=== PATIENT | male | born 1965 | race Caucasian/White ===

== ENCOUNTER → 2019-06-09 | Outpatient (CLI) | payer OTHER ==
--- NOTE | 2019-06-09 12:31 | CT ---
EXAMINATION TYPE: CT sinus wo con DATE OF EXAM: 06/09/2019 COMPARISON: None HISTORY: Cough x [address] DLP: 639 mGycm CONTRAST: None The paranasal sinuses are examined in the axial plane at 2 mm thick sections. Reconstructed images i n the coronal plane were obtained. There is dental amalgam scatter artifact There is an air-fluid level within the left maxillary sinus. Retention cyst appears to be along the a nterior left maxillary sinus. The ethmoid air cells are clear. The sphenoid sinuses are clear. The frontal sinuses are clear. The septum is evaluated. There is septal deviation to the left. The right ostiomeatal unit is patent. There is obstruction of the left ostiomeatal unit. IMPRESSIONS: 1. Clinical correlation recommended for acute left maxillary sinusitis.
--- NOTE | 2019-06-09 12:51 | CT ---
EXAMINATION TYPE: CT chest w con DATE OF EXAM: 06/09/2019 COMPARISON: None HISTORY: Cough x [address] DLP: 680 mGycm, Automated exposure control for dose reduction was used. CONTRAST: Performed injected with 100 mL of Isovue M300. TECHNIQUE: Axial images were obtained at 5 mm thick sections. Reconstructed images are reviewed on [facility] computer in the coronal plane. FINDINGS: Portion of the thyroid visualized is normal. There is a 0.7 cm nodule within the periphery of the right upper lobe. Series 4 image 15. There is a focal area of pneumonitis appears suspicious measuring 2.0 cm right upper outer lung. Series 4 image 20. An additional irregular density is in the posterior right upper lobe measuring 2.0 cm. Series 4 i mage 23. Small density with some surrounding pneumonitis with a diameter of 1.6 cm in the left perihi lar region. Series 4 image 25. Small area of pneumonitis with a transverse dimension of 0.8 cm cyst i n the right perihilar region. Series 4 image 27. A 1.2 cm area of pneumonitis is in the right middle lobe. Series 4 image 31. Small area of density with surrounding pneumonitis measures 0.5 cm. Series 4 image 36. There is an area of increased density in the posterior left lower lung field measuring 2.2 cm in diameter. Series 4 image 40. There is a nodular density within the right middle lobe adjacent to the major fissure measuring 0.8 cm with some surrounding pneumonitis change. Series 4 image 42. Th ere is a nodule just above the right diaphragm measuring 0.9 cm. Series 4 image 44. There is a periph eral based nodular density measuring 1.5 x 1.0 cm deep posterior lateral right lung. Series 4 image 4 3. Nodular densities in the left lung base medially measuring 0.8 cm. Series 4 image 42. No enlarged mediastinal or hilar adenopathy is evident. The ascending aorta diameter at the level o f the main pulmonary artery is 2.9 cm. The main pulmonary artery diameter at the bifurcation is 2.[address] sections are obtained through the upper abdomen. There is moderate fatty infiltration of t liver. Adrenal glands appear normal. IMPRESSIONS: 1. Multiple bilateral lung nodules and areas of pneumonitis within the bilateral lung cordova discusse d above. Findings are suspicious for metastatic disease. Additional workup is recommended. PET/CT may be useful. 2. Moderate fatty infiltration of the liver
== END | disposition home or self-care (01) ==
LOC: RADCTMAIN 09:44
PROVIDERS: ATTEND Internal Medicine
DX: J18.9 Pneumonia, unspecified organism (principal); R91.8 Other nonspecific abnormal finding of lung field; R93.0 Abnormal findings on diagnostic imaging of skull and head, not elsewhere classified
CPT/HCPCS: 71260; 70486; Q9967

== ENCOUNTER → 2019-06-16 | Outpatient (CLI) | payer OTHER | END | disposition home or self-care (01) | LOC: LABWHC1 09:05 | PROVIDERS: ATTEND Internal Medicine Critical Care Medicine | DX: R91.8 Other nonspecific abnormal finding of lung field (principal) | CPT/HCPCS: 36415; 82164; 86001; 86606; 86609 ==

== ENCOUNTER → 2019-06-18 | Outpatient (CLI) | payer OTHER ==
--- NOTE | 2019-06-22 19:24 | PE ---
Nuclear medicine PET/CT HISTORY: Cough, abnormal chest CT, pulmonary nodule Patient received 10 mCi F-18 FDG intravenously in delayed scanning was performed from the skull base to the mid thighs. Localization and attenuation correction CT scan was performed. Correlation to chest and sinus CT 06/09/2019 Neck and chest: Bilateral groundglass and semisolid nodular densities of varying sizes are again note d. There is some associated hypermetabolic uptake present. Additionally right hilar adenopathy with a ssociated uptake is noted. Patient's left maxillary sinus disease again seen. No cervical or supraclavicular adenopathy. Mild up take noted along the palatine tonsils and anterior tongue may be physiologic. No pleural pericardial effusion. ABDOMEN: Liver shows low attenuation as on prior exam. Patient is post cholecystectomy. No retroperit hernandez adenopathy or suspicious hypermetabolic uptake. Uptake within the bowel in the right lower quad rant is likely physiologic. There is prostate calcification. Osseous structures unremarkable. Impression: Consider such entities as pulmonary vasculitis such as eosinophilic granulomatosis with p olyangiitis, respiratory bronchiolitis interstitial lung disease, subacute hypersensitivity pneumonit is, aspergillosis, alveolar hemorrhage, atypical infection, sarcoid and bronchioloalveolar carcinoma in the appropriate clinical setting. Consider pulmonary consult.
== END | disposition home or self-care (01) ==
LOC: RADPETMAIN 16:24
PROVIDERS: ATTEND Internal Medicine
DX: R91.8 Other nonspecific abnormal finding of lung field (principal)
CPT/HCPCS: 78815; A9552

== ENCOUNTER → 2019-06-24 | Day surgery (SDC) | payer OTHER ==
[2019-06-23 09:19] VITALS: BMI 31.1
[~2019-06-24] MED LIST: ALBUTEROL NEB (CONC) 2.5 MG/0.5 ML INHALATION ONE; ATROPINE SULFATE 0.4 MG/ML 1 ML VIAL IM ONE; DEXAMETHASONE SOD PHOSPHATE 10 MG/ML 1 ML VIAL IV ONE; GLYCOPYRROLATE 0.2 MG/ML 2 ML VIAL ONE; HYDROmorphone 0.5 MG/0.5 ML SYRINGE IVP PRN; LACTATED RINGERS 1,000 ML IV SCH; LIDOCAINE 1% INJ 10MG/ML (20 ML MDV) ONE; LIDOCAINE 2% (PF) 20 MG/ML 5 ML VIAL INHALATION ONE; LIDOCAINE VISCOUS 300 MG/15 ML CUP MUCOUS MEM ONE; MIDAZOLAM 2 MG/2 ML VIAL IV PRN; MIDAZOLAM 2 MG/2 ML VIAL ONE; NEOSTIGMINE 1 MG/ML 10 ML VIAL ONE; ONDANSETRON 4 MG/2 ML VIAL IVP ONE; PHENYLEPHRINE-0.9% NACL SYG 1 MG/10 ML SYRINGE ONE; PROPOFOL 10 MG/ML 20 ML VIAL IV ONE; ROCURONIUM BROMIDE 10 MG/ML 10 ML VIAL IV ONE; SCOPOLAMINE 1.5MG/72HR PATCH TRANSDERM ONE; SODIUM CHLORIDE 0.9% 1,000 ML IV SCH; SUCCINYLCHOLINE CHLORIDE 100 MG/5 ML SYR IV ONE; fentaNYL (PF) 50 MCG/ML 2 ML AMP ONE
[2019-06-24 13:25] VITALS: TEMP 98.3
--- NOTE | 2019-06-24 13:29 | PCN ---
PROCEDURE NOTE PROCEDURE: Navigational bronchoscopy. OPERATORS: Dr. Jean Baptiste, Dr. Gayle and Akila Ledezma. PREOPERATIVE DIAGNOSIS: Multiple inflammatory/infectious lesions bilateral lungs, rule out infection versus cancer. POSTOPERATIVE DIAGNOSIS: Multiple inflammatory/infectious lesions bilateral lungs, rule out infection versus cancer. PROCEDURE: The patient's procedure was done in operating room #6. There was informed consent and universal timeout. Dr. Au was the anesthesiologist to provide general anesthesia. After the patient was adequately sedated and being fully monitored and anesthetized and on the ventilator, the bronchoscope was inserted through the bronchoscope adapter connected to the endotracheal tube. We used A [place] [employer] electromagnetic navigational bronchoscopy device to localize the most significant lesion in the left lower lobe. Once there, we were able to do multiple transbronchial needle aspirations, also transbronchial biopsies as well as washes and brushes in this area. It was all done under computer-guided assistance. The patient tolerated procedure well. The specimens were sent to the laboratory for analysis. There was no immediate complication. The patient was stable throughout the procedure on the ventilator. The bronchoscope was then withdrawn. The patient will be recovered. I will speak to the patient's about the procedure. Again, specimens to be sent to the laboratory for analysis. Again, everything was collected in the left lower lobe including transbronchial needle aspirations/Barreto needle aspirations, transbronchial biopsies, brushes and washes, all in the left lower lobe. MMODL / IJN: [id number] /
--- NOTE | 2019-06-24 14:07 | CT ---
EXAMINATION TYPE: CT Chest ye Ni Protocol DATE OF EXAM: 06/24/2019 COMPARISON: Nuclear medicine PET/CT 06/18/2019, CT chest 06/09/2019 HISTORY: Bronchial Navigation-Pulmonary Nodules/Mass CT DLP: 654 mGycm Automated exposure control for dose reduction was used. Helical acquisition obtained for preprocedura l planning through the chest FINDINGS: Right upper lobe lesion posterior aspect seen on prior CT at shows a suggestion of minimal cavitary a ppearance, some central lucency is present. Multiple additional nodules are again seen showing somewh at more solid appearance to some of the nodules as compared to prior. No evident pleural or pericardi al effusion. No mediastinal, axillary, or hilar adenopathy. No significant interval change. IMPRESSION: MULTIPLE PULMONARY NODULES DESCRIBED, CT PERFORMED FOR PROCEDURE PLANNING
[2019-06-24 14:09] VITALS: RESP 18
--- NOTE | 2019-06-24 14:16 | XR ---
EXAMINATION TYPE: XR chest 1V portable DATE OF EXAM: 06/24/2019 HISTORY: Status post bronchoscopy COMPARISON: None. TECHNIQUE: Single view of the chest is submitted. FINDINGS: Demonstrated are scattered senescent parenchymal change. No evidence for pneumothorax. Left hilar prominence are noted. The heart is stable. Hilar and mediastinal structures are within normal limits. Degenerative changes are seen of the dorsal spine. IMPRESSION: 1. No evidence for pneumothorax.
[2019-06-24 14:34] VITALS: BP 110/72; PULSE 79
[2019-06-24 17:24] LABS: Appearance,BF Hazy; Color,BF Pink
[2019-06-24 17:25] LABS: Nucleated Cells, Body Fluid 0 /uL; RBC, Body Fluid 14125 /uL
== END ==
LOC: ORWHC2ENDO 10:00
PROVIDERS: ATTEND Internal Medicine Critical Care Medicine
DX: J98.4 Other disorders of lung (principal); J06.9 Acute upper respiratory infection, unspecified; J18.9 Pneumonia, unspecified organism; I82.409 Acute embolism and thrombosis of unspecified deep veins of unspecified lower extremity; I26.99 Other pulmonary embolism without acute cor pulmonale; B37.0 Candidal stomatitis; K21.9 Gastro-esophageal reflux disease without esophagitis; D68.51 Activated protein C resistance; Z86.718 Personal history of other venous thrombosis and embolism; Z79.01 Long term (current) use of anticoagulants; Z79.899 Other long term (current) drug therapy; Z80.0 Family history of malignant neoplasm of digestive organs; Z82.49 Family history of ischemic heart disease and other diseases of the circulatory system; Z90.49 Acquired absence of other specified parts of digestive tract
CPT/HCPCS: 31628; 31629; 94640; 87798 ×3; 87496; 87498; 87529; 88104; 88108; 88305; 88173; 89050; 87252; 87502; 87634; 87070; 87205; 87116; 87102; 87206; 71045; 71250; 31623; 31624; 31627; J2250; J0461; J2710; J2405; J2001 ×2; J3010; J2370; J0330; J2704; 31625

== ENCOUNTER 2019-07-05 10:32 | Inpatient (IN) | payer OTHER ==
--- NOTE | 2019-07-05 10:17 | CT ---
EXAMINATION TYPE: CT angio chest DATE OF EXAM: 07/05/2019 COMPARISON: 06/09/2019 HISTORY: Shortness of breath CT DLP: 583 mGycm CONTRAST: CT chest with contrast and 3D reconstruction with MIP imaging is performed with IV Contrast, patient injected with 100 mL of Isovue 370. Contrast-enhanced CT of the chest was performed through the course of the pulmonary arteries with ana g and mediastinal window settings submitted. 3D reconstruction with MIP imaging was also performed. PULMONARY ARTERIES: Moderate filling of secondary and tertiary branches within bilateral lower lobes left greater than right compatible with pulmonary embolism. No evidence for saddle embolus component. Smaller filling defect within a tertiary branch of the right upper lobe. Left upper lobe branches ar e well-perfused this time. LUNGS: Pleural-based pulmonary nodule right lower lobe measures 2.2 cm. Multiple additional pulmonary nodules identified some of which demonstrate cavitation. Suspect metastatic disease or primary lung carcinoma with metastatic nodules. MEDIASTINUM: Thoracic aorta is of normal caliber,however, evaluation is limited given timing of the contrast bolus. If there is concern for thoracic aortic pathology consider MARICRUZ. Correlate clinicall y . The heart is not enlarged. No evidence for mediastinal mass. No mediastinal lymph nodes greater than 1cm. HILAR STRUCTURES: No evidence for mass. No hilar lymph nodes greater than 1 cm. UPPER ABDOMEN: No significant abnormality is seen. IMPRESSION: 1. Moderate bilateral pulmonary embolism as discussed above. 2. Multiple pulmonary nodules some of which are cavitary. A [place] critical message alert has been initiated for Otilio Jean Baptiste DO via the [facility] Critical Results System on 07/05/2019 10:15 AM. This message alert has been sent to Chantelle Hood via the preferences provided by the clinician for the receipt of Radiology Critical Findings. [email or web address] ID [id number].
[2019-07-05] MEDS ORDERED: HEPARIN SODIUM,PORCINE 10,000 UNIT/ML 1 ML VIAL IV ONE (10:45)
[2019-07-05] MEDS ORDERED: HEPARIN SODIUM,PORCINE 5,000 UNIT/ML 1 ML VIAL IV PRN (10:45)
--- NOTE | 2019-07-05 10:57 | ED ---
General Adult HPI - General Chief complaint: Shortness of Breath Stated complaint: positive PE Time Seen by Provider: 07/05/19 10:45 Source: patient Mode of arrival: ambulatory Limitations: no limitations - History of Present Illness Initial comments: Dictation was produced using [employer] dictation software. please excuse any grammatical, word or spelling errors. Chief Complaint: 54-year-old male who presents with abnormal outpatient CT. History of Present Illness: Patient is 54-year-old male. He has past medical history of clotting disorder. Patient has had pulmonary embolism in the past. Patient is past medical history of pulmonary nodules elsewhere. Patient had CT angiogram of the chest performed today due to recent history of cough, shortness of breath and sore throat. CT angios performed today showed pulmonary emboli. He was instructed by his physician to come directly to the emergency department. Patient has history of blood clots. He was on Coumadin however had lung biopsies performed recently. His Coumadin for approximately 5 days. Patient reports that he feels okay now. He does still have some residual shortness of breath. The ROS documented in this emergency department record has been reviewed and confirmed by me. Those systems with pertinent positive or negative responses have been documented in the HPI. All other systems are other negative and/or noncontributory. PHYSICAL EXAM: General Impression: Alert and oriented x3, not in acute distress HEENT: Normocephalic atraumatic, extra-ocular movements intact, pupils equal and reactive to light bilaterally, mucous membranes moist. Cardiovascular: Heart regular rate and rhythm, S1&S2 audible, no murmurs, rubs or gallops Chest: Lungs clear to auscultation bilaterally, no rhonchi, no wheeze, no rales Abdomen: Bowel sounds present, abdomen soft, non-tender, non-distended, no organomegaly Musculoskeletal: Pulses present and equal in all extremities, no peripheral edema Motor: no focal deficits noted Neurological: CN II-XII grossly intact, no focal motor or sensory deficits noted Skin: Intact with no visualized rashes Psych: Normal affect and mood ED course: 54-year-old male presents with PE seen on outpatient CT Chest. Radiology interpretation is reviewed showing moderate bilateral pulmonary embolism. All signs upon arrival shows heart rate of 90, respiratory signs within acceptable limits. Lab evaluation obtained. CBC unremarkable. Coag panel shows INR 2.4, metabolic panel is unremarkable. Troponin is negative. Patient's blood pressure has been trended without any instability. Patient's clinical presentation consistent with stable pulmonary emboli. Patient will be admitted to observation with consultation to pulmonology. Discussed patient case Dr. Nikko guaman is willing to accept patients care. Patient was started on heparin. CV therapeutic at this time. Discussed concern that maybe these pulmonary emboli are chronic or perhaps acutely formed despite anticoagulation therapy. EKG interpretation: Ventricular rate 92, normal sinus rhythm, ID interval 120, care is 86, QTC 422. No ID prolongation, no QTC prolongation, no ST or T-wave changes noted. Overall, this EKG is unremarkable - Related Data Home Medications Medication Instructions Recorded Confirmed Folic Acid 1 mg PO DAILY 06/23/19 07/05/19 Omeprazole [PriLOSEC] 20 mg PO DAILY 06/23/19 07/05/19 Fluconazole [Diflucan] 100 mg PO DAILY 07/05/19 07/05/19 Warfarin [Coumadin] 7.5 mg PO QAM 07/05/19 07/05/19 Allergies Allergy/AdvReac Type Severity Reaction Status Date / Time No Known Allergies Allergy Verified 07/05/19 11:33 Review of Systems ROS Statement: Those systems with pertinent positive or pertinent negative responses have been documented in the HPI. ROS Other: All systems not noted in ROS Statement are negative. Past Medical History Past Medical History: Deep Vein Thrombosis (DVT) Additional Past Medical History / Comment(s): DVT 7-8YRS AGO question will pulmonary emboli 7 years ago History of Any Multi-Drug Resistant Organisms: None Reported Additional Past Surgical History / Comment(s): 3 ARTHROSCOPIES TIM KNEES. Past Anesthesia/Blood Transfusion Reactions: No Reported Reaction Past Psychological History: No Psychological Hx Reported Smoking Status: Never smoker Past Alcohol Use History: Occasional Past Drug Use History: None Reported - Past Family History Father Family Medical History: Cancer Additional Family Medical History / Comment(s): COLON CANCER Mother Additional Family Medical History / Comment(s): HEART STENTS PLACED General Exam Limitations: no limitations Course Vital Signs 07/05/19 07/05/19 07/05/19 10:39 11:24 11:30 Temperature 98.7 F Pulse Rate 90 93 Respiratory 18 18 18 Rate Blood Pressure 125/79 129/81 O2 Sat by Pulse 96 95 Oximetry 07/05/19 07/05/1907/05/19 11:41 12:00 12:30 Temperature Pulse Rate 90 89 Respiratory 18 20 24 Rate Blood Pressure 124/80 125/77 O2 Sat by Pulse 96 99 Oximetry Medical Decision Making - Lab Data Result diagrams: 07/05/19 11:13 07/05/19 11:13 Lab Results 07/05/19 07/05/19 07/05/19 Range/Units 11:13 11:13 11:13 WBC 6.7 (3.8-10.6) k/uL RBC 4.99 (4.30-5.90) m/uL Hgb 14.6 (13.0-17.5) gm/dL Hct 44.3 (39.0-53.0) % MCV 88.6 (80.0-100.0) fL MCH 29.3 (25.0-35.0) pg MCHC 33.0 (31.0-37.0) g/dL RDW 12.5 (11.5-15.5) % Plt Count 243 (150-450) k/uL Neutrophils % 67 % Lymphocytes % 20 % Monocytes % 8 % Eosinophils % 2 % Basophils % 0 % Neutrophils # 4.5 (1.3-7.7) k/uL Lymphocytes # 1.4 (1.0-4.8) k/uL Monocytes # 0.5 (0-1.0) k/uL Eosinophils # 0.1 (0-0.7) k/uL Basophils # 0.0 (0-0.2) k/uL PT 23.3 H (9.0-12.0) sec INR 2.4 H (<1.2) APTT 30.3 H (22.0-30.0) sec Sodium 138 (137-145) mmol/L Potassium 4.6 (3.5-5.1) mmol/L Chloride 107 (98-107) mmol/L Carbon Dioxide 23 (22-30) mmol/L Anion Gap 8 mmol/L BUN 10 (9-20) mg/dL Creatinine 0.87 (0.66-1.25) mg/dL Est GFR (CKD-EPI)AfAm >90 (>60 ml/min/1.73 sqM) Est GFR (CKD-EPI)NonAf >90 (>60 ml/min/1.73 sqM) Glucose 142 H (74-99) mg/dL Calcium 8.7 (8.4-10.2) mg/dL Troponin I (0.000-0.034) ng/mL 07/05/19 Range/Units 11:13 WBC (3.8-10.6) k/uL RBC (4.30-5.90) m/uL Hgb (13.0-17.5) gm/dL Hct (39.0-53.0) % MCV (80.0-100.0) fL MCH (25.0-35.0) pg MCHC (31.0-37.0) g/dL RDW (11.5-15.5) % Plt Count (150-450) k/uL Neutrophils % % Lymphocytes % % Monocytes % % Eosinophils % % Basophils % % Neutrophils # (1.3-7.7) k/uL Lymphocytes # (1.0-4.8) k/uL Monocytes # (0-1.0) k/uL Eosinophils # (0-0.7) k/uL Basophils # (0-0.2) k/uL PT (9.0-12.0) sec INR (<1.2) APTT (22.0-30.0) sec Sodium (137-145) mmol/L Potassium (3.5-5.1) mmol/L Chloride (98-107) mmol/L Carbon Dioxide (22-30) mmol/L Anion Gap mmol/L BUN (9-20) mg/dL Creatinine (0.66-1.25) mg/dL Est GFR (CKD-EPI)AfAm (>60 ml/min/1.73 sqM) Est GFR (CKD-EPI)NonAf (>60 ml/min/1.73 sqM) Glucose (74-99) mg/dL Calcium (8.4-10.2) mg/dL Troponin I <0.012 (0.000-0.034) ng/mL Critical Care Time Critical Care Time: Yes (31) Disposition Clinical Impression: Pulmonary emboli Disposition: ADMITTED IP TO THIS [facility] Condition: Fair Referrals: Kev Honeycutt MD [Primary Care Provider] - 1-2 days Decision Time: 13:02
[2019-07-05] MEDS: HEPARIN SOD,PORK IN 0.45% NACL 25,000 UNIT in 0.45% NACL 1 250ML.BAG IV SCH (11:22)
[2019-07-05 11:29] LABS: Basophils % (A) 0 %; Eosinophils # (A) 0.1 k/uL (0-0.7); Eosinophils % (A) 2 %; HCT 44.3 % (39.0-53.0); HGB 14.6 gm/dL (13.0-17.5); Lymphocytes # (A) 1.4 k/uL (1.0-4.8); Lymphocytes % (A) 20 %; MCH 29.3 pg (25.0-35.0); MCV 88.6 fL (80.0-100.0); Mean Platelet Volume 7.3; Monocytes # (A) 0.5 k/uL (0-1.0); Monocytes % (A) 8 %; Neutrophils # (A) 4.5 k/uL (1.3-7.7); Neutrophils % (A) 67 %; Platelet Count 243 k/uL (150-450); RBC 4.99 m/uL (4.30-5.90); RDW 12.5 % (11.5-15.5); WBC 6.7 k/uL (3.8-10.6)
[2019-07-05 11:38] LABS: INR 2.4 (<1.2); Partial Thromboplastin Time 30.3 sec (22.0-30.0); Prothrombin Time 23.3 sec (9.0-12.0)
[2019-07-05 11:54] LABS: African American GFR (CKD) >90 (>60 ml/min/1.73 sqM); Anion Gap 8 mmol/L; Blood Urea Nitrogen 10 mg/dL (9-20); Calcium 8.7 mg/dL (8.4-10.2); Carbon Dioxide 23 mmol/L (22-30); Chloride 107 mmol/L (98-107); Glucose 142 mg/dL (74-99); Non-African American GFR(CKD) >90 (>60 ml/min/1.73 sqM); Potassium 4.6 mmol/L (3.5-5.1); Sodium 138 mmol/L (137-145)
[2019-07-05] MEDS ORDERED: ACETAMINOPHEN TAB 325 MG TAB PO PRN (13:03)
[2019-07-05] MEDS ORDERED: NALOXONE 0.4 MG/ML 1 ML VIAL IV PRN (13:03)
[2019-07-05] MEDS ORDERED: SODIUM CHLORIDE 0.9% 1,000 ML IV SCH (13:15)
--- NOTE | 2019-07-05 16:22 | P.CNPUL ---
History of Present Illness Consult date: 07/05/19 Requesting physician: Lew Nicolas Reason for consult: dyspnea Chief complaint: dyspnea History of present illness: This a 54-year-old male who was recently seen by Dr. Jean Baptiste on an outpatient basis for symptoms of upper respiratory tract infection, cough, chest congestion, sore throat, sensation of razors in his throat, his symptoms started back in mid May, patient was treated with 2 different courses of antibiotics his computed tomography scan of the sinuses revealed sinusitis and his chest x-ray showed some abnormalities which were confirmed by computed tomography scan of the chest. Patient had multiple pulmonary lesions appear to be nodular in appearance but also had a groundglass appearance to them as well. patient had a PET scan on 06/18/2019 which showed bilateral groundglass and semisolid nodular densities of varying sizes, and there was some associated hypermetabolic uptake present, additionally right hilar adenopathy with associated uptake was noted. 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 Patient recently had a navigational bronchoscopy by Dr. Jean Baptiste and his Coumadin was placed on hold for 5 days. Transbronchial biopsy of the left lower lobe lung nodule was nondiagnostic of a mass lesion. Barreto needle aspirate biopsy of the left lower lobe was nondiagnostic. bronchial wash cultures showed no growth, acid-fast bacilli smear was negative, TB culture is still pending, fungal culture so far is negative. after patient's initial bronchoscopy he was resumed on his Coumadin dose the same night. Patient has been having ongoing issues with sore throat, oral thrush and she was started on oral Diflucan by his PCP. He noticed increased shortness of breath last , but no complaints of chest pain, no hemoptysis. any activity makes him short of breath. Denies any cough or phlegm production, no fever, does feel like he has some chills. he was seen by Dr. Jean Baptiste in the office today, and was sent in to the emergency department for evaluation, CTA chest showed moderate bilateral pulmonary embolism left greater than right, and secondary and tertiary branches within bilateral lower lobes, with small filling defects within the tertiary branch of the right upper lobe. multiple pulmonary nodules which some of them are cavitary as previously noted on previous CAT scans of the chest. hemodynamically stable, blood pressure is stable, patient is on room air, with a pulse ox 97%, he was started on heparin infusion, and this consultation was requested Review of Systems All systems: negative Constitutional: Denies chills, Denies fever Eyes: denies blurred vision, denies pain Ears, nose, mouth and throat: Reports sore throat, Denies headache Cardiovascular: Reports decreased exercise tolerance, Reports dyspnea on exertion, Denies chest pain, Denies shortness of breath Respiratory: Reports dyspnea, Denies cough Gastrointestinal: Denies abdominal pain, Denies diarrhea, Denies nausea, Denies vomiting Musculoskeletal: Denies myalgias Integumentary: Denies pruritus, Denies rash Neurological: Denies numbness, Denies weakness Psychiatric: Denies anxiety, Denies depression Endocrine: Denies fatigue, Denies weight change Past Medical History Past Medical History: Deep Vein Thrombosis (DVT) Additional Past Medical History / Comment(s): DVT 7-8YRS AGO question will pulmonary emboli 7 years ago History of Any Multi-Drug Resistant Organisms: None Reported Additional Past Surgical History / Comment(s): 3 ARTHROSCOPIES TIM KNEES. Past Anesthesia/Blood Transfusion Reactions: No Reported Reaction Past Psychological History: No Psychological Hx Reported Smoking Status: Never smoker Past Alcohol Use History: Occasional Past Drug Use History: None Reported - Past Family History Father Family Medical History: Cancer Additional Family Medical History / Comment(s): COLON CANCER Mother Additional Family Medical History / Comment(s): HEART STENTS PLACED Medications and Allergies Home Medications Medication Instructions Recorded Confirmed Type Folic Acid 1 mg PO DAILY 06/23/19 07/05/19 History Omeprazole [PriLOSEC] 20 mg PO DAILY 06/23/19 07/05/19 History Fluconazole [Diflucan] 100 mg PO DAILY 07/05/19 07/05/19 History Warfarin [Coumadin] 7.5 mg PO QAM 07/05/19 07/05/19 History Allergies Allergy/AdvReac Type Severity Reaction Status Date / Time No Known Allergies Allergy Verified 07/05/19 11:33 Physical Exam Vitals: Vital Signs Temp Pulse Resp BP Pulse Ox 07/05/19 14:30 79 20 113/61 96 07/05/19 14:00 77 21 118/74 97 07/05/19 13:00 89 18 131/83 95 07/05/19 12:30 89 24 125/77 99 07/05/19 12:00 90 20 124/80 07/05/19 11:41 18 96 07/05/19 11:30 93 18 129/81 95 07/05/19 11:24 18 07/05/19 10:39 98.7 F 90 18 125/79 96 Intake and Output 07/05/19 07/05/19 07/05/19 06:59 14:59 22:59 Other: Weight 104.326 kg GENERAL EXAM: Alert, very pleasant, 54-year-old white male, on room air, with a pulse ox of 94-97%, comfortable in no apparent distress. HEAD: Normocephalic/atraumatic. EYES: Normal reaction of pupils, equal size. Conjunctiva pink, sclera white. NOSE: Clear with pink turbinates. MOUTH: yellowish whitish coating on patient's tongue. No other lesions noted on upper palate, posterior oropharynx, over the buccal mucosa THROAT: No erythema or exudates. NECK: No masses, no JVD, no thyroid enlargement, no adenopathy. CHEST: No chest wall deformity. Symmetrical expansion. LUNGS: Equal air entry with no crackles, wheeze, rhonchi or dullness. CVS: Regular rate and rhythm, normal S1 and S2, no gallops, no murmurs, no rubs ABDOMEN: Soft, nontender. No hepatosplenomegaly, normal bowel sounds, no guarding or rigidity. EXTREMITIES: No clubbing, no edema, no cyanosis, 2+ pulses and upper and lower extremities. MUSCULOSKELETAL: Muscle strength and tone normal. SPINE: No scoliosis or deformity SKIN: No rashes CENTRAL NERVOUS SYSTEM: Alert and oriented -3. No focal deficits, tone is normal in all 4 extremities. PSYCHIATRIC: Alert and oriented -3. Appropriate affect. Intact judgment and insight. Results - Laboratory Findings CBC and BMP: 07/05/19 11:13 07/05/19 11:13 PT/INR, D-dimer PT 23.3 sec (9.0-12.0) H 07/05/19 11:13 INR 2.4 (<1.2) H 07/05/19 11:13 Abnormal lab findings: Abnormal Labs 07/05/19 07/05/19 11:13 11:13 PT 23.3 H INR 2.4 H APTT 30.3 H Glucose 142 H - Diagnostic Findings CT scan - chest: report reviewed, image reviewed Assessment and Plan Plan: assessment: #1. Acute bilateral pulmonary emboli, moderate burden, left greater than right, with no evidence of hemodynamic instability, 2-D echocardiogram is pending. #2. Factor V Leiden deficiency #3. Previous history of pulmonary embolus and DVT on chronic Coumadin, which was recently placed on hold for 5 days for navigational bronchoscopy #4. Multiple nodular pulmonary lesions, of unclear etiology, recent bronchoscopy with transbronchial biopsies were nondiagnostic, AFB smear negative, bronch lavage cultures negative, fungal cultures pending #5. Oral candidiasis #6. nonsmoker Plan: Continue heparin infusion, INR was therapeutic however patient states he noticed increased shortness of breath since last , and his Coumadin was recently placed on hold for several days for bronchoscopy with biopsies. We will ask hematology to evaluate the patient in regards to possible failure of Coumadin. we will ask infectious disease to evaluate the patient's for disability of infectious etiology related to presence of pulmonary nodules, in the presence of oral candidiasis in an otherwise healthy patient, he did have recent travel to [place]. Hemodynamic patient is stable, he is maintaining stable oxygenation on room air, echocardiogram is pending, we will resume his home medications. His transbronchialbiopsies were nondiagnostic, so far his bronchial lavage cultures are negative. Will await further input from hematology and infectious disease. I performed a history & physical examination of the patient and discussed their management with my nurse practitioner, Akila Ledezma. I reviewed the nurse pra ctitioner's note and agree with the documented findings and plan of care. Lung sounds are positive for decreased breath sounds at the bases. The findings and the impression was discussed with the patient. I attest to the documentation by the nurse practitioner. Time with Patient: Greater than 30
--- NOTE | 2019-07-05 16:32 | P.HPIM ---
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 Apparently the patient has been having URI type symptoms of runny nose sore throat intermittently productive cough over the last 3-4 weeks, the patient has also completed 2 courses of antibiotics including a course of Augmentin and is also had systemic steroids. CT of the sinuses showed acute maxillary sinusitis 06/09. CT of the chest 06/09 with multiple bilateral lung nodules areas of pneumonitis within the bilateral lung cordova and his suggestions for metastatic disease subsequent PET/CTthat showed bilateral groundglass appearances and semisolid nodular densities varying in size. the patient reported having bronchoscopy 06/24 with BAL and biopsy of nodule that was reportedly negative. the patient reports being instructed to hold his anticoagulation with Coumadin prior to the procedure for which she held for 7 days and which she resumed post procedure. The patient reported no improvement of his breathing and was sent for a CT of his chest today which showed bilateral pulmonary emboli and a multiple pulmonary nodules some of which are cavitary Past Medical History Past Medical History: Deep Vein Thrombosis (DVT) Additional Past Medical History / Comment(s): DVT 7-8YRS AGO question will pulmonary emboli 7 years ago History of Any Multi-Drug Resistant Organisms: None Reported Additional Past Surgical History / Comment(s): 3 ARTHROSCOPIES TIM KNEES. Past Anesthesia/Blood Transfusion Reactions: No Reported Reaction Past Psychological History: No Psychological Hx Reported Smoking Status: Never smoker Past Alcohol Use History: Occasional Past Drug Use History: None Reported - Past Family History Father Family Medical History: Cancer Additional Family Medical History / Comment(s): COLON CANCER Mother Additional Family Medical History / Comment(s): HEART STENTS PLACED Medications and Allergies Home Medications Medication Instructions Recorded Confirmed Type Folic Acid 1 mg PO DAILY 06/23/19 07/05/19 History Omeprazole [PriLOSEC] 20 mg PO DAILY 06/23/19 07/05/19 History Fluconazole [Diflucan] 100 mg PO DAILY 07/05/19 07/05/19 History Warfarin [Coumadin] 7.5 mg PO QAM 07/05/19 07/05/19 History Allergies Allergy/AdvReac Type Severity Reaction Status Date / Time No Known Allergies Allergy Verified 07/05/19 11:33 Physical Exam Vitals: Vital Signs Temp Pulse Resp BP Pulse Ox 07/05/19 16:00 83 21 123/74 94 L 07/05/19 15:30 75 22 103/71 95 07/05/19 15:00 84 20 113/61 96 07/05/19 14:30 79 20 113/61 96 07/05/19 14:00 77 21 118/74 97 07/05/19 13:00 89 18 131/83 95 07/05/19 12:30 89 24 125/77 99 07/05/19 12:00 90 20 124/80 07/05/19 11:41 18 96 07/05/19 11:30 93 18 129/81 95 07/05/19 11:24 18 07/05/19 10:39 98.7 F 90 18 125/79 96 Intake and Output 07/05/19 07/05/19 07/05/19 06:59 14:59 22:59 Other: Weight 104.326 kg Constitutional: No acute distress, conversant, pleasant Eyes: Anicteric sclerae, moist conjunctiva, no lid-lag, PERRLA ENMT: NC/AT,Oropharynx clear, no erythema, exudates Neck:Supple, FROM, no masses, or JVD, No carotid bruits; No thyromegaly Lungs: Clear to auscultation, Clear to percussion, Normal respiratory effort, no accessory muscle use Cardiovascular: Heart regular in rate and rhythm, No murmurs, gallops, or rubs no peripheral edema Abdominal: Soft Nontender, nom distended, no guarding, no rebound or rigidity, Normoactive bowel sounds No hepatomegaly, No splenomegaly, No palpable mass No abdominal wall hernia noted Skin: Normal temperature, tone, texture, turgor, No induration No subcutaneous nodules, No rash, lesions, No ulcers Extremities:No digital cyanosis No clubbing, Pedal pulses intact and symmetrical Radial pulses intact and symmetrical Normal gait and station, No calf tenderness Psychiatric: Alert and oriented to person, place and time, Appropriate affect Intact judgement Neuro: Muscles Strength 5/5 in all 4 extremities, Sensation to light touch grossly present throughout, Cranial nerves II-XII grossly intact. No focal sensory deficits Results CBC & Chem 7: 07/05/19 11:13 07/05/19 11:13 Labs: Abnormal Lab Results - Last 24 Hours (Table) 07/05/19 07/05/19 Range/Units 11:13 11:13 PT 23.3 H (9.0-12.0) sec INR 2.4 H (<1.2) APTT 30.3 H (22.0-30.0) sec Glucose 142 H (74-99) mg/dL Assessment and Plan Assessment: acute bilateral PE Factor V Leyden deficiency History of thromboembolic disease on Coumadin Multiple pulmonary nodules oral candidiasis Plan: the patient is admitted anticipated greater than 2 midnight stay with acute bilateral PE the patient with a history of thromboembolic disease factor V Leyden and antithrombin III deficiency , currently on anticoagulation with Coumadin with a therapeutic INR at 2.4 today. Patient has been worked up for his pulmonary nodules in his hand outpatient PET/CT. the patient was started on IV heparin, plans for echocardiogram and consultation to pulmonary and hematology oncology. I will continue the patient's Coumadin . we'll await recommendations from consultants. Continue to follow patient's clinical course CODE STATUS: full code Anticipated discharge: 1-[address]: Home Prophylaxis: Heparin and PPIs
[2019-07-06] MEDS: PANTOPRAZOLE 40 MG TABLET PO SCH ×2 (07:06→08:12)
[2019-07-06] MEDS ORDERED: FOLIC ACID 1 MG TAB PO SCH (09:00)
[2019-07-06] MEDS ORDERED: FLUCONAZOLE 100 MG TAB PO SCH ×2 (09:00→15:00)
[2019-07-06 10:42] LABS: INR 2.7 (<1.2)
--- NOTE | 2019-07-06 10:51 | P.PN ---
Subjective Progress Note Date: 07/06/19 Principal diagnosis: Acute pulmonary emboli This a 54-year-old male who was recently seen by Dr. Jean Baptiste on an outpatient basis for symptoms of upper respiratory tract infection, cough, chest congestion, sore throat, sensation of razors in his throat, his symptoms started back in mid May, patient was treated with 2 different courses of antibiotics his computed tomography scan of the sinuses revealed sinusitis and his chest x-ray showed some abnormalities which were confirmed by computed tomography scan of the chest. Patient had multiple pulmonary lesions appear to be nodular in appearance but also had a groundglass appearance to them as well. patient had a PET scan on 06/18/2019 which showed bilateral groundglass and semisolid nodular densities of varying sizes, and there was some associated hypermetabolic uptake present, additionally right hilar adenopathy with associated uptake was noted. 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 Patient recently had a navigational bronchoscopy by Dr. Jean Baptiste and his Coumadin was placed on hold for 5 days. Transbronchial biopsy of the left lower lobe lung nodule was nondiagnostic of a mass lesion. Barreto needle aspirate biopsy of the left lower lobe was nondiagnostic. bronchial wash cultures showed no growth, acid-fast bacilli smear was negative, TB culture is still pending, fungal culture so far is negative. after patient's initial bronchoscopy he was resumed on his Coumadin dose the same night. Patient has been having ongoing issues with sore throat, oral thrush and she was started on oral Diflucan by his PCP. He noticed increased shortness of breath last , but no complaints of chest pain, no hemoptysis. any activity makes him short of breath. Denies any cough or phlegm production, no fever, does feel like he has some chills. he was seen by Dr. Jean Baptiste in the office today, and was sent in to the emergency department for evaluation, CTA chest showed moderate bilateral pulmonary embolism left greater than right, and secondary and tertiary branches within bilateral lower lobes, with small filling defects within the tertiary branch of the right upper lobe. multiple pulmonary nodules which some of them are cavitary as previously noted on previous CAT scans of the chest. hemodynamically stable, blood pressure is stable, patient is on room air, with a pulse ox 97%, he was started on heparin infusion, and this consultation was requested On 07/06/2019 patient seen in follow-up on selective care unit, he is awake and alert, in no acute distress, he states he is feeling less short of breath with exertion, his vitals are stable, room air pulse ox is 97%, hemodynamically stable, no complaints of chest pain, no palpitations, no pleuritic chest pain, no cough. Remains on heparin infusion, echocardiogram is pending today, consulted hematology and infectious disease service. No fever or chills overnight. Bronchial wash cultures remain negative to date. Patient remains on oral Diflucan still has yellowish white patch on his tongue, no other lesions noted on his gums or hard palate the back of his throat. Objective - Vital Signs Vital signs: Vital Signs Temp 97.9 F 07/06/19 00:07 Pulse 82 07/06/19 00:07 Resp 20 07/06/19 03:53 BP 122/59 07/06/19 00:07 Pulse Ox 97 07/06/19 00:07 Intake & Output 07/05/19 07/06/19 07/06/19 18:59 06:59 18:59 Intake Total 240 166.82 480 Balance 240 166.82 480 Weight 104.326 kg 100.7 kg Intake: Intake, IV Titration 240 166.82 Amount Heparin Sod,Pork in 0.45% 166.82 NaCl 25,000 unit In 0.45 % NaCl 1 250ml.bag @ 18 UNITS/KG/HR 18.779 mls/hr IV .[id number] [facility]UL Rx#: [id number] Sodium Chloride 0.9% 1, 240 000 ml @ 20 mls/hr IV . Q24H [facility]UKUL Rx#:[id number] Oral 480 Other: Voiding Method Toilet # Voids 1 2 - Exam GENERAL EXAM: Alert, very pleasant, 54-year-old white male, on room air, with a pulse ox of 94-97%, comfortable in no apparent distress. HEAD: Normocephalic/atraumatic. EYES: Normal reaction of pupils, equal size. Conjunctiva pink, sclera white. NOSE: Clear with pink turbinates. MOUTH: yellowish whitish coating on patient's tongue. No other lesions noted on upper palate, posterior oropharynx, over the buccal mucosa THROAT: No erythema or exudates. NECK: No masses, no JVD, no thyroid enlargement, no adenopathy. CHEST: No chest wall deformity. Symmetrical expansion. LUNGS: Equal air entry with no crackles, wheeze, rhonchi or dullness. CVS: Regular rate and rhythm, normal S1 and S2, no gallops, no murmurs, no rubs ABDOMEN: Soft, nontender. No hepatosplenomegaly, normal bowel sounds, no guarding or rigidity. EXTREMITIES: No clubbing, no edema, no cyanosis, 2+ pulses and upper and lower extremities. MUSCULOSKELETAL: Muscle strength and tone normal. SPINE: No scoliosis or deformity SKIN: No rashes CENTRAL NERVOUS SYSTEM: Alert and oriented -3. No focal deficits, tone is normal in all 4 extremities. PSYCHIATRIC: Alert and oriented -3. Appropriate affect. Intact judgment and insight. - Labs CBC & Chem 7: 07/05/19 11:13 07/05/19 11:13 Labs: Abnormal Lab Results - Last 24 Hours (Table) 07/05/19 07/05/19 07/05/19 Range/Units 11:13 11:13 19:21 PT 23.3 H (9.0-12.0) sec INR 2.4 H (<1.2) APTT 30.3 H 115.2 H* (22.0-30.0) sec Glucose 142 H (74-99) mg/dL 07/06/19 07/06/19 Range/Units 03:33 03:33 PT 26.0 H (9.0-12.0) sec INR 2.7 H (<1.2) APTT 49.3 H (22.0-30.0) sec Glucose (74-99) mg/dL Assessment and Plan Plan: assessment: #1. Acute bilateral pulmonary emboli, moderate burden, left greater than right, with no evidence of hemodynamic instability, 2-D echocardiogram is pending. #2. Factor V Leiden deficiency #3. Previous history of pulmonary embolus and DVT on chronic Coumadin, which was recently placed on hold for 5 days for navigational bronchoscopy #4. Multiple nodular pulmonary lesions, of unclear etiology, recent bronchoscopy with transbronchial biopsies were nondiagnostic, AFB smear negative, bronch lavage cultures negative, fungal cultures pending #5. Oral candidiasis #6. nonsmoker Plan: Continue heparin infusion, echocardiogram is pending, patient is clinically stable, on room air, no hemodynamic instability, no complaints of chest pain, shortness of breath is improving, continue with oral Diflucan, awaiting input f [facility] infectious disease service. Bronchial lavage cultures remain negative to date, hematology has been consulted. Repeat PT/INR today, Coumadin has been restarted, we'll consider discontinuing heparin drip today I performed a history & physical examination of the patient and discussed their management with my nurse practitioner, Akila Ledezma. I reviewed the nurse practitioner's note and agree with the documented findings and plan of care. Lung sounds are positive for decreased breath sounds at the bases. The findings and the impression was discussed with the patient. I attest to the d ocumentation by the nurse practitioner. Time with Patient: Less than 30
[2019-07-06 11:15] VITALS: RESP 14; TEMP 98.2
--- NOTE | 2019-07-06 11:25 | P.CONS ---
History of Present Illness - Reason for Consult Consult date: 07/06/19 Hypercoaguable state Requesting physician: Felice Estrada - Chief Complaint SOB, thrush - History of Present Illness Mr Solorio is a very pleasant 54-year-old male patient who saw Dr. Kilgore back in 2013 for recurrent DVT/PE. Patient has had provoking circumstance with each episode of clots but, he also is positive for hypercoagulable mutations. It is documented in our medical records that he is homozygous for the MTHFR mutation (this is no longer included in the hypercoagulable workup as its significance to hypercoagulopathy was negated). 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 Patient reports factor V and antithrombin III. Patient states that he is in very good health and that his current condition started about the second week of May. Since that time patient has had symptoms of an upper respiratory tract infec tion including cough. Patient states that it was on return home from [place] that he noted oral thrush. He then started to have the respiratory symptoms, he was treated with antibiotics, the thrush was persistent. He had a moderate outbreak of hives with the second course of antibiotics, treated with Benadryl, and he did complete. Patient had CT chest showing multiple lesions which led to a PET scan performed on 06/18. It is commented in the PET report "some associated hypermetabolic uptake present", no SUV is reported. Patient had a biopsy with Dr. Jean Baptiste on 06/24 it was nondiagnostic. His Coumadin was held 06/19 through 06/24, he did not use lovenox from [facility], his shortness of breath started 07/01 (after a 9 hour car ride and sitting in a deer blind). On admit yesterday INR was 2.4, INR was 1.3 on 06/07. Patient is feeling very frustrated, he denies recent fevers, chills, night sweats, his appetite is terrible, he thinks he may have lost a little bit of weight, he feels he is losing strength, he denied vomiting, he does have the feeling of something stuck in his throat that we'll make him gag, not classifying it as nausea, he does take medication when necessary for indigestion/heartburn, no hemoptysis, no abdominal pain or cramping, acute changes in bowel or bladder habits, no current rashes, bleeding, pain. Review of Systems 14 point review systems is negative except as stated in HPI Past Medical History Past Medical History: Deep Vein Thrombosis (DVT), Pulmonary Embolus (PE) Additional Past Medical History / Comment(s): DVT 7-8YRS AGO question will pulmonary emboli 7 years ago, Positive Factor V. Prothrombin [id number] mutation History of Any Multi-Drug Resistant Organisms: None Reported Past Surgical History: Orthopedic Surgery Additional Past Surgical History / Comment(s): 3 ARTHROSCOPIES TIM KNEES. Past Anesthesia/Blood Transfusion Reactions: No Reported Reaction Past Psychological History: No Psychological Hx Reported Smoking Status: Never smoker (Documented in office electronic medical record patient is a former smoker) Past Alcohol Use History: Occasional Past Drug Use History: None Reported - Past Family History Father Family Medical History: Cancer Additional Family Medical History / Comment(s): COLON CANCER Mother Family Medical History: Myocardial Infarction ([place]) Additional Family Medical History / Comment(s): HEART STENTS PLACED Medications and Allergies Home Medications Medication Instructions Recorded Confirmed Type Folic Acid 1 mg PO DAILY 06/23/19 07/05/19 History Omeprazole [PriLOSEC] 20 mg PO DAILY 06/23/19 07/05/19 History Fluconazole [Diflucan] 100 mg PO DAILY 07/05/19 07/05/19 History Warfarin [Coumadin] 7.5 mg PO QAM 07/05/19 07/05/19 History Allergies Allergy/AdvReac Type Severity Reaction Status Date / Time No Known Allergies Allergy Verified 07/05/19 11:33 Physical Exam Vitals: Vital Signs Temp Pulse Pulse Resp BP BP Pulse Ox 07/06/19 03:53 20 07/06/19 00:07 97.9 F 82 20 122/59 97 07/05/19 20:00 96.6 F L 89 20 139/76 95 07/05/19 18:09 98.2 F 90 18 126/76 95 07/05/19 17:30 90 23 128/80 95 07/05/19 17:00 80 18 120/87 96 07/05/19 16:30 80 24 118/68 07/05/19 16:00 83 21 123/74 94 L 07/05/19 15:30 75 22 103/71 95 07/05/19 15:00 84 20 113/61 96 12/23/19 14:30 79 20 113/61 96 07/05/19 14:00 77 21 118/74 97 07/05/19 13:00 89 18 131/83 95 07/05/19 12:30 89 24 125/77 99 07/05/19 12:00 90 20 124/80 07/05/19 11:41 18 96 07/05/19 11:30 93 18 129/81 95 07/05/19 11:24 18 Intake and Output 07/05/19 07/06/19 07/06/19 22:59 06:59 14:59 Intake Total 406.82 480 Balance 406.82 480 Intake: Intake, IV Titration 406.82 Amount Heparin Sod,Pork in 0.45% 166.82 NaCl 25,000 unit In 0.45 % NaCl 1 250ml.bag @ 18 UNITS/KG/HR 18.779 mls/hr IV .[id number] [facility] Rx#: [id number] Sodium Chloride 0.9% 1, 240 000 ml @ 20 mls/hr IV . Q24H [facility] Rx#:[id number] Oral 480 Other: Voiding Method Toilet Toilet # Voids 1 2 Weight 104.326 kg 100.7 kg - Constitutional General appearance: average body habitus, cooperative, no acute distress - EENT Eyes: anicteric sclerae, EOMI ENT: hearing grossly normal, thrush (severe) - Neck Neck: no lymphadenopathy - Respiratory Respiratory: bilateral: diminished - Cardiovascular Rhythm: regular Heart sounds: normal: S1, S2 Abnormal Heart Sounds: no systolic murmur, no diastolic murmur, no rub, no S3 Gallop, no S4 Gallop, no click, no other leg Peripheral Edema: bilateral: None - Gastrointestinal Left flank fullness General gastrointestinal: normal bowel sounds, soft - Integumentary Integumentary: normal - Neurologic Neurologic: CNII-XII intact - Musculoskeletal Musculoskeletal: strength equal bilaterally - Psychiatric Psychiatric: A&O x's 3, appropriate affect, intact judgment & insight Results CBC & Chem 7: 07/05/19 11:13 07/05/19 11:13 Labs: Abnormal Lab Results - Last 24 Hours (Table) 07/05/19 07/05/19 07/05/19 Range/Units 11:13 11:13 19:21 PT 23.3 H (9.0-12.0) sec INR 2.4 H (<1.2) APTT 30.3 H 115.2 H* (22.0-30.0) sec Glucose 142 H (74-99) mg/dL 07/06/19 07/06/19 Range/Units 03:33 03:33 PT 26.0 H (9.0-12.0) sec INR 2.7 H (<1.2) APTT 49.3 H (22.0-30.0) sec Glucose (74-99) mg/dL Comments: PET scan Chest x-ray: report reviewed CT scan - chest: report reviewed Assessment and Plan (1) Recurrent deep venous thrombosis Current Visit: Yes Status: Acute Priority: High Code(s): I82.409 - ACUTE EMBOLISM AND THOMBOS UNSP DEEP VN UNSP LOWER EXTREMITY SNOMED Code(s): 695199909 (2) Pulmonary emboli Narrative/Plan: Reviewed patient's case as well as history and physical with Dr. Kilgore. It is not felt at this time that this was a failure of Coumadin. Patient was likely subtherapeutic. Patient is okay to resume on his Coumadin until INR is between 2 and 3 at which time heparin drip can be discontinued. Explained to patient that in the future he should follow-up with Dr. Kilgore prior to any procedures and bridge with Lovenox. Also, encouraged patient that he needs to follow instructions regarding anticoagulation, including, taking his Coumadin as prescribed, getting his INR checked as directed and to not allow himself to be in situations where he is having prolonged episodes of in-activity, suggested compression stockings as well. Current Visit: Yes Status: Acute Priority: High Code(s): I26.99 - OTHER PULMONARY EMBOLISM WITHOUT ACUTE COR PULMONALE SNOMED Code(s): 38311392 (3) Oral thrush Narrative/Plan: Agree with Infectious Disease consult Current Visit: Yes Status: Acute Priority: High Code(s): B37.0 - CANDIDAL STOMATITIS SNOMED Code(s): 40565477 (4) Pulmonary nodule Narrative/Plan: Patient will continue to follow with Dr. Jean Baptiste. Further workup will be determined after patient's current condition is improved. Current Visit: Yes Status: Acute Priority: High Code(s): R91.1 - SOLITARY PULMONARY NODULE SNOMED Code(s): 279679980
[2019-07-06] MEDS: HEPARIN SOD,PORK IN 0.45% NACL 25,000 UNIT in 0.45% NACL 1 250ML.BAG IV SCH (11:26)
--- NOTE | 2019-07-06 12:02 | ECHOF ---
Referral Reason:pulmonary emboli MEASUREMENTS -------- HEIGHT: 180.3 cm WEIGHT: 100.7 kg BP: RVIDd: 3.3 cm (< 3.3) IVSd: 1.1 cm (0.6 - 1.1) LVIDd: 3.6 cm (3.9 - 5.3) LVPWd: 1.3 cm (0.6 - 1.1) IVSs: 1.7 cm LVIDs: 2.3 cm LVPWs: 1.4 cm LAESV Index (A-L): 23.31 ml/m Ao Diam: 2.5 cm (2.0 - 3.7) AV Cusp: 1.6 cm (1.5 - 2.6) LA Diam: 3.2 cm (2.7 - 3.8) MV EXCURSION: 18.048 mm (> 18.000) MV EF SLOPE: 153 mm/s (70 - 150) EPSS: 0.3 cm MV E Kingsley: 0.58 m/s MV DecT: 193 ms MV A Kingsley: 0.49 m/s MV E/A Ratio: 1.19 RAP: 5.00 mmHg RVSP: 24.33 mmHg TAPSE: 23.82 mm FINDINGS -------- Sinus rhythm. This was a technically adequate study. The left ventricular size is normal. There is mild concentric left ventricular hypertrophy. Overa ll left ventricular systolic function is normal with, an EF between 55 - 60 %. The diastolic fillin g pattern is normal for the age of the patient 9.05. The right ventricle is mildly enlarged. The right ventricular systolic function is normal. Normal LA size by volume 22+/-6 ml/m2. The right atrial size is normal. The aortic valve is trileaflet, and appears structurally normal. No aortic stenosis or regurgitation. The mitral valve is normal. There is trace mitral regurgitation. The tricuspid valve appears structurally normal. Mild tricuspid regurgitation present. Right vent ricular systolic pressure is normal at < 35 mmHg. There is no pulmonic regurgitation present. The aortic root size is normal. Normal inferior vena cava with normal inspiratory collapse consistent with estimated right atrial pre ssure of 5 mmHg. There is no pericardial effusion. CONCLUSIONS -------- 1. Sinus rhythm. 2. This was a technically adequate study. 3. The left ventricular size is normal. 4. There is mild concentric left ventricular hypertrophy. 5. Overall left ventricular systolic function is normal with, an EF between 55 - 60 %. 6. The diastolic filling pattern is normal for the age of the patient 9.05 7. The right ventricle is mildly enlarged. 8. The right ventricular systolic function is normal. 9. Normal LA size by volume 22+/-6 ml/m2. 10. The aortic valve is trileaflet, and appears structurally normal. No aortic stenosis or regurgitat ion. 11. There is trace mitral regurgitation. 12. Mild tricuspid regurgitation present. 13. Right ventricular systolic pressure is normal at < 35 mmHg. 14. There is no pulmonic regurgitation present. 15. The aortic root size is normal. 16. Normal inferior vena cava with normal inspiratory collapse consistent with estimated right atrial pressure of 5 mmHg. 17. There is no pericardial effusion. OCCUPATIONAL HEALTH AND SAFETY OFFICER: Beatrice Calzada RDCS
[2019-07-06 13:34] VITALS: BP 113/71; PULSE 90
--- NOTE | 2019-07-06 16:34 | P.DS ---
Providers Date of admission: 07/06/19 10:16 Expected date of discharge: 07/06/19 Attending physician: Nikko Bonilla MD Consults: 07/05/19 13:04 Consult Physician Routine Consulting Provider: Otilio Jean Baptiste Consult Reason/Comments: PE Do you want consulting provider notified?: Yes 07/05/19 14:33 Consult Physician Routine Consulting Provider: Frankie Pizano Consult Reason/Comments: pulm nodules possible fungal etiology Do you want consulting provider notified?: Yes 07/05/19 15:40 Consult Physician Routine Consulting Provider: Nathanael Hough Consult Reason/Comments: pulmonary emboli Do you want consulting provider notified?: Yes Primary care physician: K[facility] Course: discharge diagnosis Recurrent pulmonary embolism factor V Leiden deficiency History of thromboembolic disease (DVT and PE) Oral thrush Pulmonary nodules hospital course The patient is a 54-year-old male that presented with shortness of breath and was admitted for recurrent pulmonary embolism. The patient has a history of hypercoagulable disorder with a factor V Leiden deficiency and was taking Coumadin chronically. The patient had been off Coumadin for BAL and biopsy as he was being worked up for his multiple pulmonary nodules by pulmonary, the patient did not have Lovenox bridging. The patient was being seen in pulmonary clinic and had a CTA of the chest that showed moderate bilateral pulmonary embolism left greater than right, multiple pulmonary nodules some of which are cavitary. bronchoscopy N Amber's bronchial biopsy of the left lower lobe lung nodule was nondiagnostic of a mass lesion, bronchial washes showed no growth, acid-fast bacilli spare was negative, TB cultures are pending, fungal culture have been negative. echocardiogram performed showed a preserved LVEF of 55-60%, without any significant valvular abnormalities. the patient was started on IV heparin and continued on his home dose of Coumadin INR was therapeutic at 2.4 trending up to 2.7. the patient was seen by pulmonary and hematology and infectious diseases and subsequently cleared for discharge for outpatient follow-up. The patient was discharged home in stable condition. This discharge process took approximately 35 minutes Focused exam: Pulmonary: Clear auscultation bilaterally no wheezes or rhonchi Patient Condition at Discharge: Stable Plan - Discharge Summary Discharge Rx Participant: Yes New Discharge Prescriptions: New Fluconazole [Diflucan] 400 mg PO DAILY #28 tablet Continue Omeprazole [PriLOSEC] 20 mg PO DAILY Folic Acid 1 mg PO DAILY Warfarin [Coumadin] 7.5 mg PO QAM Discontinued Fluconazole [Diflucan] 100 mg PO DAILY Discharge Medication List Folic Acid 1 mg PO DAILY 06/23/19 [History] Omeprazole [PriLOSEC] 20 mg PO DAILY 06/23/19 [History] Warfarin [Coumadin] 7.5 mg PO QAM 07/05/19 [History] Fluconazole [Diflucan] 400 mg PO DAILY #28 tablet 07/06/19 [Rx] Follow up Appointment(s)/Referral(s): Otilio Jean Baptiste DO [Doctor of Osteopathic Medicine] - 1 Week (Office is closed. Please call to schedule appointment) Kev Honeycutt MD [Primary Care Provider] - 07/09/19 9:45 am (Friday with Aggie) Willie Kilgore MD [STAFF PHYSICIAN] - 1 Week (Office is closed. Please call to schedule appointment) Frankie Pizano MD [STAFF PHYSICIAN] - 1 Week (Office is closed. Please call to schedule appointment ) Patient Instructions/Handouts: Pulmonary Embolism (DC), Safe Use of Anticoagulants (DC) Discharge Disposition: HOME SELF-CARE
[2019-07-06] MEDS ORDERED: WARFARIN 7.5 MG TAB PO SCH (18:00)
[2019-07-08 13:04] LABS: HIV 1 AB Non-Reactive (Non-Reactive); HIV 2 AB Non-Reactive (Non-Reactive); HIV AB P24 Non-Reactive (Non-Reactive); HIV P24 AG Non-Reactive (Non-Reactive)
== END 2019-07-06 16:08 | disposition home or self-care (01) | DRG 176 ==
LOC: EC 10:32 → 3SCARD 13:03 → OBSVTOIN 07-06 10:16
PROVIDERS: ADMIT Family Medicine; ATTEND Family Medicine
DX: I26.99 Other pulmonary embolism without acute cor pulmonale (principal); D68.51 Activated protein C resistance; D68.59 Other primary thrombophilia; B37.0 Candidal stomatitis; R91.1 Solitary pulmonary nodule; Z79.01 Long term (current) use of anticoagulants; Z86.718 Personal history of other venous thrombosis and embolism; Z86.711 Personal history of pulmonary embolism; Z80.0 Family history of malignant neoplasm of digestive organs; Z82.49 Family history of ischemic heart disease and other diseases of the circulatory system
CPT/HCPCS: 36415; 71275; 80048; 84145; 84484; 85025; 85610; 85730; 86140; 86606; 87327; 87390; 93005; 93306; 96365; 96366; 96376; 99291

== ENCOUNTER → 2019-08-06 | Outpatient (CLI) | payer OTHER ==
--- NOTE | 2019-08-06 11:19 | CT ---
EXAMINATION TYPE: CT chest w con DATE OF EXAM: 08/06/2019 COMPARISON: 07/05/2019 HISTORY: Lung nodule CT DLP: 543.5 mGycm, Automated exposure control for dose reduction was used. CONTRAST: Performed injected with 100 mL of Isovue 300. TECHNIQUE: Axial images were obtained at 5 mm thick sections. Reconstructed images are reviewed on Moku computer in the coronal plane. FINDINGS: Portion of the thyroid visualized is normal. There is a 0.4 cm nodule in the periphery of the right upper lung field. Series 4 image 18. Present p reviously. There is an area of pneumonitis with a ring in the posterior right upper lung field. Series 4 image 2 3. This measures 0.9 cm and is smaller and less dense than the comparison. There is an area of pneumonitis in the posterior right upper lung field. Series 4 image 26. This area is significantly diminished in size over the interval. Subtle cavitation may remain centrally. Previous cavitation in the right middle lobe, series 4 image 36 is diminished in size and density fro m comparison. There is a spiculated pleural-based mass in the posterior lateral right lung which is smaller than th e comparison study. This currently measures 1.5 cm. Previous measurement of 2.2 cm. No enlarged mediastinal or hilar adenopathy is evident. The ascending aorta diameter at the level o f the main pulmonary artery is 2.9 cm. The main pulmonary artery diameter at the bifurcation is 2.[address] sections are obtained through the upper abdomen. Some mild fatty infiltration is within th e liver. IMPRESSIONS: 1. Spiculated mass currently measures 1.5 cm in the posterior lateral right lung. This has diminished in size from 2.2 cm. 2. Multiple cavitary areas of increased density appeared more pneumonitis likely on the current exami nation with resolving cavitation. No stable or increasing sized cavitary lesions are evident.
== END | disposition home or self-care (01) ==
LOC: RADCTMAIN 08:50
PROVIDERS: ATTEND Internal Medicine Infectious Disease
DX: R91.8 Other nonspecific abnormal finding of lung field (principal); J18.9 Pneumonia, unspecified organism
CPT/HCPCS: 71260; Q9967

== ENCOUNTER → 2019-11-25 | Outpatient (CLI) | payer OTHER ==
--- NOTE | 2019-11-25 15:50 | CT ---
EXAMINATION TYPE: CT chest w con DATE OF EXAM: 11/25/2019 COMPARISON: CT chest August 06, [address] PET CT June 18, 2019 HISTORY: candidal stomatitis, pneumonia CT DLP: 550.2 mGycm. Automated Exposure Control for Dose Reduction was Utilized. TECHNIQUE: CT scan of the thorax is performed following with IV Contrast, patient injected with 100 mL of Isovue 300. FINDINGS: LUNGS: Interval resolution of foci of groundglass opacity and cavitation throughout the right lung. Few scattered small nodules throughout the right lung remain present. There is a 7 mm subpleural nodu le right lower lobe axial image 47 decreased from prior studies. Stable 5 mm right basilar nodule everardo ge 49 from most recent study diminished in size from older studies. There is 3 to 4 mm right middle l obe nodule image 46 stable from most recent CT diminished in size from older CTs. There is 3 mm right middle lobe nodule image 40 stable from most recent CT diminished in size from prior CTs. No new gre ater than 4 mm nodules. There is no pleural effusion or pneumothorax seen bilaterally. The tracheobr onchial tree is patent. MEDIASTINUM: There are no greater than 1 cm hilar or mediastinal lymph nodes. No cardiomegaly or pe ricardial effusion is seen. OTHER: Cholecystectomy clips redemonstrated. Liver remains low dense consistent with diffuse fatty in filtration. IMPRESSION: Interval complete resolution of areas of groundglass opacity cavitation consistent with r esolving infectious process. Areas of smaller nodularity stable from most recent CT, largest nodule r ight lower lobe continues to decrease in size from older studies. Correlate clinically.
== END | disposition home or self-care (01) ==
LOC: RADCTMAIN 14:55
PROVIDERS: ATTEND Internal Medicine Infectious Disease
DX: R91.1 Solitary pulmonary nodule (principal); J18.9 Pneumonia, unspecified organism; B37.0 Candidal stomatitis
CPT/HCPCS: 71260; Q9967

== ENCOUNTER → 2020-03-21 | Outpatient (CLI) | payer OTHER | END | disposition home or self-care (01) | LOC: RADCTMAIN 12:18 | PROVIDERS: ATTEND Internal Medicine Infectious Disease | DX: Z53.9 Procedure and treatment not carried out, unspecified reason (principal) ==

== ENCOUNTER → 2020-03-30 | Outpatient (CLI) | payer OTHER ==
--- NOTE | 2020-03-30 15:40 | CT ---
EXAMINATION TYPE: CT chest w con DATE OF EXAM: 03/30/2020 COMPARISON: 11/25/2019, 06/09/2019 HISTORY: Multiple Pulmonary Nodules CT DLP: 527.8 mGycm, Automated exposure control for dose reduction was used. CONTRAST: Performed injected with 100 mL of Isovue 300. TECHNIQUE: Axial images were obtained at 5 mm thick sections. Reconstructed images are reviewed on Sw[employer] by [employer] computer in the coronal plane. FINDINGS: Portion of the thyroid visualized is normal. There is mild infiltrate within the posterior left upper lobe and posterior mid right lung. There are multiple pulmonary nodules. Findings were present previously and appears stable in size. Fo llow-up exam in 3 months is recommended to confirm stability. A 0.5 cm nodule. Series 4 image 21. This is smaller than 2 cm irregular density present previously. Ar 0.4 cm nodule peripheral right upper lobe. Series 4 image 13. Smaller than comparison. Groundglass opacity at the posterior lateral right apex has nearly slightly resolved. A right perihilar nodule measuring 0.5 cm. Series 4 image 25. This is smaller than the comparison of 0.8 cm. A 0.3 cm nodule in the anterior right middle lobe. This is smaller than the 1.1 cm previous. A right middle lobe peripheral nodule measuring 0.3 cm. Series 4 image 34. This is smaller than the p revious 0.5 cm. A 0.5 cm right middle lobe nodule. Series 4 image 40. This is smaller than 0.8 cm previous. A 0.4 cm nodule left medial lower lung field. Series 4 image 41. This is smaller than 0.8 cm previous . A posterior irregular nodule measuring 1.0 cm. Series 4 image 39. A nodule within the right lung base adjacent to the diaphragm measuring 0.7 cm. Series 4 image 42. Th is is smaller than 0.9 cm previous No enlarged mediastinal or hilar adenopathy is evident. The ascending aorta diameter at the level o f the main pulmonary artery is 3.2 cm. The main pulmonary artery diameter at the bifurcation is 2.[address] sections are obtained through the upper abdomen. Abdomen is essentially unremarkable. IMPRESSIONS: 1. Multiple bilateral pulmonary nodules have diminished in size from older comparison studies of 05/15. There is incomplete resolution. No enlarging nodules are identified.
== END | disposition home or self-care (01) ==
LOC: RADCTMAIN 08:10
PROVIDERS: ATTEND Internal Medicine Infectious Disease
DX: R91.8 Other nonspecific abnormal finding of lung field (principal)
CPT/HCPCS: 71260; Q9967

== ENCOUNTER → 2020-04-18 | Outpatient (CLI) | payer OTHER | END | disposition home or self-care (01) | LOC: LABWHC1 09:56 | PROVIDERS: ATTEND Nurse Practitioner Adult Health | DX: R19.7 Diarrhea, unspecified (principal) | CPT/HCPCS: U0003; C9803 ==

== ENCOUNTER 2021-02-09 06:18 | Inpatient (IN) | payer OTHER ==
[2021-02-09] MEDS ORDERED: SODIUM CHLORIDE 0.9% 1,000 ML IV STA (06:40)
[2021-02-09] MEDS ORDERED: ONDANSETRON 4 MG/2 ML VIAL IVP STA (06:40)
[2021-02-09] MEDS ORDERED: MORPHINE SULFATE 4 MG/ML SYRINGE IVP STA (06:40)
[2021-02-09] MEDS ORDERED: cefTRIAXone IN SWFI 1,000 MG/10 ML SYRINGE IVP STA (06:49)
--- NOTE | 2021-02-09 07:09 | ED ---
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 Patient states yesterday morning he woke up fine but he started to develop a red ness on the anterior right knee and superior tib-fib. Patient went to his doctor and was given a shot of antibiotics and Keflex and told it was cellulitis. Patient states today the symptoms and redness have worsened and his doctor told him to come into the ER. He denies fevers. He is able to walk on the right knee. Patient denies having any hardware in the right knee but has had a meniscal repair several years ago. Patient states he has had DVTs before and this feels nothing like a DVT.Patient has no other complaints at this time including shortness of breath, chest pain, abdominal pain, nausea or vomiting, headache, or visual changes. (Neo Arvizu) - Related Data Home Medications Medication Instructions Recorded Confirmed Folic Acid 1 mg PO DAILY 06/23/19 02/09/21 Omeprazole [PriLOSEC] 20 mg PO DAILY 06/23/19 02/09/21 Cephalexin [Keflex] 1,000 mg PO Q12HR 02/09/21 02/09/21 Cholecalciferol [Vitamin D3 (25 100 mcg PO DAILY 02/09/21 02/09/21 Mcg = 1000 Iu)] Warfarin [Coumadin] 3 mg PO DAILY 02/09/21 02/09/21 Warfarin [Coumadin] 5 mg PO DAILY 02/09/21 02/09/21 Allergies Allergy/AdvReac Type Severity Reaction Status Date / Time No Known Allergies Allergy Verified 02/09/21 08:02 Review of Systems ROS Other: All systems not noted in ROS Statement are negative. <Neo Arvizu - Last Filed: 02/09/21 07:53> ROS Other: All systems not noted in ROS Statement are negative. <Candace Koch Latoya - Last Filed: 02/11/21 17:09> ROS Statement: Those systems with pertinent positive or pertinent negative responses have been documented in the HPI. Past Medical History Past Medical History: Deep Vein Thrombosis (DVT) Additional Past Medical History / Comment(s): DVT 7-8YRS AGO question will pulmonary emboli 7 years ago History of Any Multi-Drug Resistant Organisms: None Reported Past Surgical History: Orthopedic Surgery Additional Past Surgical History / Comment(s): 3 ARTHROSCOPIES TIM KNEES. Past Anesthesia/Blood Transfusion Reactions: No Reported Reaction Past Psychological History: No Psychological Hx Reported Smoking Status: Never smoker Past Alcohol Use History: Occasional Past Drug Use History: None Reported - Past Family History Father Family Medical History: Cancer Additional Family Medical History / Comment(s): COLON CANCER Mother Family Medical History: Myocardial Infarction ([place]) Additional Family Medical History / Comment(s): HEART STENTS PLACED <Neo Arvizu P - Last Filed: 02/09/21 07:53> General Exam Limitations: no limitations General appearance: alert, in no apparent distress Head exam: Present: atraumatic, normocephalic, normal inspection Eye exam: Present: normal appearance, PERRL, EOMI. Absent: scleral icterus, conjunctival injection, periorbital swelling ENT exam: Present: normal exam, mucous membranes moist Neck exam: Present: normal inspection, full ROM. Absent: tenderness, meningismus, lymphadenopathy Respiratory exam: Present: normal lung sounds bilaterally. Absent: respiratory distress, wheezes, rales, rhonchi, stridor Cardiovascular Exam: Present: regular rate, normal rhythm, normal heart sounds. Absent: systolic murmur, diastolic murmur, rubs, gallop, clicks Extremities exam: Present: normal capillary refill (Capillary refill less than 2 seconds, to be pulse 2+.), joint swelling (Edema noted of the anterior right knee.), other (Erythema of the anterior right knee and proximal tib-fib). Absent: full ROM (Patient is 90 flexion of the right knee, full extension ) <Neo Arvizu P - Last Filed: 02/09/21 07:53> Course Vital Signs 02/09/21 02/09/21 06:18 09:00 Temperature 97.9 F 98.2 F Pulse Rate 85 81 Respiratory 22 22 Rate Blood Pressure 134/76 130/84 O2 Sat by Pulse 97 98 Oximetry Medical Decision Making - Lab Data Result diagrams: 02/09/21 06:53 02/09/21 06:53 <Neo Arvizu - Last Filed: 02/09/21 07:53> - Lab Data Result diagrams: 02/11/21 08:34 02/11/21 03:00 <Candace Koch - Last Filed: 02/11/21 17:09> - Medical Decision Making Vitals are stable. Patient does have erythema overlying the right anterior knee and proximal tib-fib. Neurovascular status otherwise intact in the right leg. Patient has been on Keflex outpatient. White count is 19.8 with a left shift. CRP 66. Knee x-ray is unremarkable. No joint effusion. Patient was started on antibiotics. Of note patient does take Coumadin for factor V and does have an INR of 4.0. Patient at this time will be admitted for IV antibiotics. Orthopedics will be consulted given the location of cellulitis and concern of preventing cellulitis from entering the joint space. Patient states his whole family sees orthopedic [facility] and he prefers to see them. I did speak with Arielle from [facility], requests infectious disease consult as well. (Neo Arvizu) I was available for consultation in the emergency department. The history and physical exam were done by the midlevel provider. I was consulted for this patients care. I reviewed the case with the midlevel provider and based on their presentation of the patient, I agree with the assessment, medical decision making and plan of care as documented. Chart was dictated using [employer] dictation software. Attempts were made to correct any dictation errors however some typographical errors may persist. Patient was seen during a national state of emergency due to the Covid-19 pandemic. (Candace Koch) - Lab Data Lab Results 02/09/21 02/09/21 02/09/21 Range/Units 06:53 06:53 06:53 WBC 19.8 H (3.8-10.6) k/uL RBC 5.31 (4.30-5.90) m/uL Hgb 16.0 (13.0-17.5) gm/dL Hct 48.7 (39.0-53.0) % MCV 91.6 (80.0-100.0) fL MCH 30.1 (25.0-35.0) pg MCHC 32.9 (31.0-37.0) g/dL RDW 12.6 (11.5-15.5) % Plt Count 142 L (150-450) k/uL Plt Count Comment MPV 8.6 Immature Gran % (Auto) % Absolute Nucleated RBC (0.00-0.00) X 10*3/uL Neutrophils % 87 % Lymphocytes % 6 % Monocytes % 6 % Eosinophils % 0 % Basophils % 0 % Immature Gran # (0.00-0.04) X 10*3/uL Neutrophils # 17.1 H (1.3-7.7) k/uL Lymphocytes # 1.2 (1.0-4.8) k/uL Monocytes # 1.2 H (0-1.0) k/uL Eosinophils # 0.1 (0-0.7) k/uL Basophils # 0.1 (0-0.2) k/uL NRBC/100 WBC Diff (0.0-0.0) /100 WBCS RBC Morphology ESR (0-20) mm/Hr PT 38.9 H (9.0-12.0) sec INR 4.0 H (<1.2) APTT 38.4 H (22.0-30.0) sec Sodium 134 L (137-145) mmol/L Potassium 4.5 (3.5-5.1) mmol/L Chloride 106 (98-107) mmol/L Carbon Dioxide 19 L (22-30) mmol/L Anion Gap 9 mmol/L BUN 16 (9-20) mg/dL Creatinine 0.88 (0.66-1.25) mg/dL Est GFR (CKD-EPI)AfAm >90 (>60 ml/min/1.73 sqM) Est GFR (CKD-EPI)NonAf >90 (>60 ml/min/1.73 sqM) BUN/Creatinine Ratio (12.00-20.00) Ratio Glucose 217 H (74-99) mg/dL Plasma Lactic Acid Adriel (0.7-2.0) mmol/L Uric Acid 4.9 (3.5-8.5) mg/dL Calcium 8.9 (8.4-10.2) mg/dL Total Bilirubin 3.0 H (0.2-1.3) mg/dL AST 40 (17-59) U/L ALT 52 H (4-49) U/L Alkaline Phosphatase 77 (38-126) U/L C-Reactive Protein 6.6 H (<1.0) mg/dL Total Protein 6.7 (6.3-8.2) g/dL Albumin 4.0 (3.5-5.0) g/dL Globulin (1.6-3.3) g/dL Albumin/Globulin Ratio (1.60-3.17) g/dL Fluid Source Fluid Appearance Fluid RBC /uL Fluid Nucleated Cells /uL Fluid Polynuclear WBCs % Fluid Mononuclear WBCs % Synovial Crystals (None Seen) Stool Occult Blood (Negative) Vancomycin Trough ug/mL 02/09/21 02/09/21 02/09/21 Range/Units 06:53 12:10 18:47 WBC 15.1 H (3.8-10.6) k/uL RBC 4.73 (4.30-5.90) m/uL Hgb 14.5 (13.0-17.5) gm/dL Hct 43.7 (39.0-53.0) % MCV 92.4 (80.0-100.0) fL MCH 30.7 (25.0-35.0) pg MCHC 33.2 (31.0-37.0) g/dL RDW 12.7 (11.5-15.5) % Plt Count 119 L (150-450) k/uL Plt Count Comment MPV 8.6 Immature Gran % (Auto) % Absolute Nucleated RBC (0.00-0.00) X 10*3/uL Neutrophils % 81 % Lymphocytes % 12 % Monocytes % 5 % Eosinophils % 1 % Basophils % 0 % Immature Gran # (0.00-0.04) X 10*3/uL Neutrophils # 12.2 H (1.3-7.7) k/uL Lymphocytes # 1.8 (1.0-4.8) k/uL Monocytes # 0.8 (0-1.0) k/uL Eosinophils # 0.1 (0-0.7) k/uL Basophils # 0.0 (0-0.2) k/uL NRBC/100 WBC Diff (0.0-0.0) /100 WBCS RBC Morphology ESR (0-20) mm/Hr PT (9.0-12.0) sec INR (<1.2) APTT (22.0-30.0) sec Sodium (137-145) mmol/L Potassium (3.5-5.1) mmol/L Chloride (98-107) mmol/L Carbon Dioxide (22-30) mmol/L Anion Gap mmol/L BUN (9-20) mg/dL Creatinine (0.66-1.25) mg/dL Est GFR (CKD-EPI)AfAm (>60 ml/min/1.73 sqM) Est GFR (CKD-EPI)NonAf (>60 ml/min/1.73 sqM) BUN/Creatinine Ratio (12.00-20.00) Ratio Glucose (74-99) mg/dL Plasma Lactic Acid Adriel 2.0 (0.7-2.0) mmol/L Uric Acid (3.5-8.5) mg/dL Calcium (8.4-10.2) mg/dL Total Bilirubin (0.2-1.3) mg/dL AST (17-59) U/L ALT (4-49) U/L Alkaline Phosphatase (38-126) U/L C-Reactive Protein (<1.0) mg/dL Total Protein (6.3-8.2) g/dL Albumin (3.5-5.0) g/dL Globulin (1.6-3.3) g/dL Albumin/Globulin Ratio (1.60-3.17) g/dL Fluid Source Synovial Fluid Appearance Bloody Fluid RBC 359256 /uL Fluid Nucleated Cells 38967 /uL Fluid Polynuclear WBCs 90 % Fluid Mononuclear WBCs 10 % Synovial Crystals None Seen (None Seen) Stool Occult Blood (Negative) Vancomycin Trough ug/mL 02/09/21 02/10/21 02/10/21 Range/Units 18:47 04:40 04:40 WBC 14.11 H (3.8-10.6) k/uL RBC 4.84 (4.30-5.90) m/uL Hgb 14.4 (13.0-17.5) gm/dL Hct 44.7 (39.0-53.0) % MCV 92.4 (80.0-100.0) fL MCH 29.8 (25.0-35.0) pg MCHC 32.2 (31.0-37.0) g/dL RDW 12.9 (11.5-15.5) % Plt Count 121 L (150-450) k/uL Plt Count Comment DECREASED A MPV 11.3 Immature Gran % (Auto) 0.6 % Absolute Nucleated RBC 0 (0.00-0.00) X 10*3/uL Neutrophils % 81.3 % Lymphocytes % 11.1 % Monocytes % 6.2 % Eosinophils % 0.7 % Basophils % 0.1 % Immature Gran # 0.09 H (0.00-0.04) X 10*3/uL Neutrophils # 11.46 H (1.3-7.7) k/uL Lymphocytes # 1.57 (1.0-4.8) k/uL Monocytes # 0.87 (0-1.0) k/uL Eosinophils # 0.10 (0-0.7) k/uL Basophils # 0.02 (0-0.2) k/uL NRBC/100 WBC Diff 0 (0.0-0.0) /100 WBCS RBC Morphology NORMAL ESR 16 (0-20) mm/Hr PT 39.2 H 17.9 H (9.0-12.0) sec INR 4.1 H 1.8 H (<1.2) APTT 39.9 H 34.9 H (22.0-30.0) sec Sodium (137-145) mmol/L Potassium (3.5-5.1) mmol/L Chloride (98-107) mmol/L Carbon Dioxide (22-30) mmol/L Anion Gap mmol/L BUN (9-20) mg/dL Creatinine (0.66-1.25) mg/dL Est GFR (CKD-EPI)AfAm (>60 ml/min/1.73 sqM) Est GFR (CKD-EPI)NonAf (>60 ml/min/1.73 sqM) BUN/Creatinine Ratio (12.00-20.00) Ratio Glucose (74-99) mg/dL Plasma Lactic Acid Adriel (0.7-2.0) mmol/L Uric Acid (3.5-8.5) mg/dL Calcium (8.4-10.2) mg/dL Total Bilirubin (0.2-1.3) mg/dL AST (17-59) U/L ALT (4-49) U/L Alkaline Phosphatase (38-126) U/L C-Reactive Protein (<1.0) mg/dL Total Protein (6.3-8.2) g/dL Albumin (3.5-5.0) g/dL Globulin (1.6-3.3) g/dL Albumin/Globulin Ratio (1.60-3.17) g/dL Fluid Source Fluid Appearance Fluid RBC /uL Fluid Nucleated Cells /uL Fluid Polynuclear WBCs % Fluid Mononuclear WBCs % Synovial Crystals (None Seen) Stool Occult Blood (Negative) Vancomycin Trough ug/mL 02/10/21 02/10/21 02/10/21 Range/Units 04:40 11:10 11:10 WBC (3.8-10.6) k/uL RBC (4.30-5.90) m/uL Hgb (13.0-17.5) gm/dL Hct (39.0-53.0) % MCV (80.0-100.0) fL MCH (25.0-35.0) pg MCHC (31.0-37.0) g/dL RDW (11.5-15.5) % Plt Count (150-450) k/uL Plt Count Comment MPV Immature Gran % (Auto) % Absolute Nucleated RBC (0.00-0.00) X 10*3/uL Neutrophils % % Lymphocytes % % Monocytes % % Eosinophils % % Basophils % % Immature Gran # (0.00-0.04) X 10*3/uL Neutrophils # (1.3-7.7) k/uL Lymphocytes # (1.0-4.8) k/uL Monocytes # (0-1.0) k/uL Eosinophils # (0-0.7) k/uL Basophils # (0-0.2) k/uL NRBC/100 WBC Diff (0.0-0.0) /100 WBCS RBC Morphology ESR (0-20) mm/Hr PT (9.0-12.0) sec INR (<1.2) APTT (22.0-30.0) sec Sodium 138 (137-145) mmol/L Potassium 4.3 (3.5-5.1) mmol/L Chloride 106 (98-107) mmol/L Carbon Dioxide 24.0 (22-30) mmol/L Anion Gap 8.00 mmol/L BUN 11.0 (9-20) mg/dL Creatinine 1.0 0.93 (0.66-1.25) mg/dL Est GFR (CKD-EPI)AfAm 97.8 >90 (>60 ml/min/1.73 sqM) Est GFR (CKD-EPI)NonAf 84.4 >90 (>60 ml/min/1.73 sqM) BUN/Creatinine Ratio 11.00 L (12.00-20.00) Ratio Glucose 144 H (74-99) mg/dL Plasma Lactic Acid Adriel (0.7-2.0) mmol/L Uric Acid 4.2 (3.5-8.5) mg/dL Calcium 8.2 L (8.4-10.2) mg/dL Total Bilirubin 2.5 H (0.2-1.3) mg/dL AST 29 (17-59) U/L ALT 44 (4-49) U/L Alkaline Phosphatase 75 (38-126) U/L C-Reactive Protein 13.8 H (<1.0) mg/dL Total Protein 5.9 L (6.3-8.2) g/dL Albumin 3.70 L (3.5-5.0) g/dL Globulin 2.2 (1.6-3.3) g/dL Albumin/Globulin Ratio 1.68 (1.60-3.17) g/dL Fluid Source Fluid Appearance Fluid RBC /uL Fluid Nucleated Cells /uL Fluid Polynuclear WBCs % Fluid Mononuclear WBCs % Synovial Crystals (None Seen) Stool Occult Blood (Negative) Vancomycin Trough 9.9 ug/mL 02/10/21 02/10/21 02/10/21 Range/Units 11:10 14:38 17:59 WBC (3.8-10.6) k/uL RBC (4.30-5.90) m/uL Hgb (13.0-17.5) gm/dL Hct (39.0-53.0) % MCV (80.0-100.0) fL MCH (25.0-35.0) pg MCHC (31.0-37.0) g/dL RDW (11.5-15.5) % Plt Count (150-450) k/uL Plt Count Comment MPV Immature Gran % (Auto) % Absolute Nucleated RBC (0.00-0.00) X 10*3/uL Neutrophils % % Lymphocytes % % Monocytes % % Eosinophils % % Basophils % % Immature Gran # (0.00-0.04) X 10*3/uL Neutrophils # (1.3-7.7) k/uL Lymphocytes # (1.0-4.8) k/uL Monocytes # (0-1.0) k/uL Eosinophils # (0-0.7) k/uL Basophils # (0-0.2) k/uL NRBC/100 WBC Diff (0.0-0.0) /100 WBCS RBC Morphology ESR (0-20) mm/Hr PT (9.0-12.0) sec INR (<1.2) APTT 33.9 H 36.4 H (22.0-30.0) sec Sodium (137-145) mmol/L Potassium (3.5-5.1) mmol/L Chloride (98-107) mmol/L Carbon Dioxide (22-30) mmol/L Anion Gap mmol/L BUN (9-20) mg/dL Creatinine (0.66-1.25) mg/dL Est GFR (CKD-EPI)AfAm (>60 ml/min/1.73 sqM) Est GFR (CKD-EPI)NonAf (>60 ml/min/1.73 sqM) BUN/Creatinine Ratio (12.00-20.00) Ratio Glucose (74-99) mg/dL Plasma Lactic Acid Adriel (0.7-2.0) mmol/L Uric Acid (3.5-8.5) mg/dL Calcium (8.4-10.2) mg/dL Total Bilirubin (0.2-1.3) mg/dL AST (17-59) U/L ALT (4-49) U/L Alkaline Phosphatase (38-126) U/L C-Reactive Protein (<1.0) mg/dL Total Protein (6.3-8.2) g/dL Albumin (3.5-5.0) g/dL Globulin (1.6-3.3) g/dL Albumin/Globulin Ratio (1.60-3.17) g/dL Fluid Source Fluid Appearance Fluid RBC /uL Fluid Nucleated Cells /uL Fluid Polynuclear WBCs % Fluid Mononuclear WBCs % Synovial Crystals (None Seen) Stool Occult Blood Negative (Negative) Vancomycin Trough ug/mL Disposition Is patient prescribed a controlled substance at d/c from ED?: No Time of Disposition: 07:53 <Neo Arvizu - Last Filed: 02/09/21 07:53> <Candace Koch - Last Filed: 02/11/21 17:09> Clinical Impression: Cellulitis Disposition: ADMITTED IP TO THIS HOSP
--- NOTE | 2021-02-09 07:21 | XR ---
EXAMINATION TYPE: XR knee complete RT DATE OF EXAM: 02/09/2021 CLINICAL HISTORY: pain TECHNIQUE: Three views of the right knee are obtained. COMPARISON: None. FINDINGS: There is no acute fracture/dislocation. The tri-compartment joint spaces appear within no rmal limits. The overlying soft tissue appears unremarkable. IMPRESSION: There is no acute fracture or dislocation.ICD 10 NO FRACTURE, INITIAL EVALUATION
[2021-02-09 07:24] LABS: ALT 52 U/L (4-49); AST 40 U/L (17-59); African American GFR (CKD) >90 (>60 ml/min/1.73 sqM); Alkaline Phosphatase 77 U/L (38-126); Anion Gap 9 mmol/L; Blood Urea Nitrogen 16 mg/dL (9-20); C Reactive Protein 6.6 mg/dL (<1.0); Calcium 8.9 mg/dL (8.4-10.2); Carbon Dioxide 19 mmol/L (22-30); Chloride 106 mmol/L (98-107); Glucose 217 mg/dL (74-99); Non-African American GFR(CKD) >90 (>60 ml/min/1.73 sqM); Potassium 4.5 mmol/L (3.5-5.1); Sodium 134 mmol/L (137-145); Total Protein 6.7 g/dL (6.3-8.2); Uric Acid 4.9 mg/dL (3.5-8.5)
[2021-02-09 07:26] LABS: Basophils # (A) 0.1 k/uL (0-0.2); Basophils % (A) 0 %; Eosinophils # (A) 0.1 k/uL (0-0.7); Eosinophils % (A) 0 %; HCT 48.7 % (39.0-53.0); Lymphocytes # (A) 1.2 k/uL (1.0-4.8); Lymphocytes % (A) 6 %; MCH 30.1 pg (25.0-35.0); MCHC 32.9 g/dL (31.0-37.0); MCV 91.6 fL (80.0-100.0); Mean Platelet Volume 8.6; Monocytes # (A) 1.2 k/uL (0-1.0); Monocytes % (A) 6 %; Neutrophils # (A) 17.1 k/uL (1.3-7.7); Neutrophils % (A) 87 %; Platelet Count 142 k/uL (150-450); RBC 5.31 m/uL (4.30-5.90); RDW 12.6 % (11.5-15.5); WBC 19.8 k/uL (3.8-10.6)
[2021-02-09 07:29] LABS: Partial Thromboplastin Time 38.4 sec (22.0-30.0); Prothrombin Time 38.9 sec (9.0-12.0)
[2021-02-09] MEDS ORDERED: NALOXONE 0.4 MG/ML 1 ML VIAL IV PRN (07:48)
[2021-02-09] MEDS ORDERED: ONDANSETRON 4 MG/2 ML VIAL IVP PRN (07:48)
[2021-02-09] MEDS ORDERED: HYDROmorphone 0.5 MG/0.5 ML SYRINGE IVP STA (07:51)
[2021-02-09] MEDS ORDERED: VANCOMYCIN IV PER PHARMACY 1 EACH MISC MISCELLANE PRN (08:11)
[2021-02-09] MEDS ORDERED: AMPICILLIN-SULBACTAM 3 GM in SODIUM CHLORIDE 0.9% 100 ML IVPB STA (08:11)
[2021-02-09] MEDS ORDERED: VANCOMYCIN 1,750 MG in SODIUM CHLORIDE 0.9% 500 ML 500 ML IVPB ONE (08:30)
[2021-02-09] MEDS: SODIUM CHLORIDE 0.9% 1,000 ML IV SCH ×2 (09:20→15:09)
[2021-02-09] MEDS: HYDROmorphone 0.5 MG/0.5 ML SYRINGE IVP PRN ×2 (12:19→22:05)
[2021-02-09] MEDS: PANTOPRAZOLE 40 MG TABLET PO SCH (12:20)
--- NOTE | 2021-02-09 12:27 | P.CNOR ---
History of Present Illness - [facility] Consult date: 02/09/21 Requesting physician: Neo Arvizu Consult reason: other (knee pain, cellulitis) History of present illness: Patient presents to the emergency department this morning. Patient is examined bedside with at side. Patient says yesterday morning he worked out on at home treadmill and stationary bike and then he went into work and noticed his right knee became swollen red and warm to touch. He immediately schedule appointment with family doctor went to his family doctor. There he was given antibiotics and was told if it got worse to go to the emergency department. Patient says he did not have any trauma to area, but his notes that about 1 week so she noticed a bite/lesion just below patient's kneecap which patient thought might be a spider or tick bite. This morning this area looks scabbed over. Patient has had bilateral knee arthroscopies previously. Patient does not know last time he had a tetanus shot. Patient denies chest pain, fever, shortness breath, nausea, vomiting, change in vision. Past Medical History Past Medical History: Deep Vein Thrombosis (DVT) Additional Past Medical History / Comment(s): DVT 7-8YRS AGO question will pulmonary emboli 7 years ago History of Any Multi-Drug Resistant Organisms: None Reported Past Surgical History: Orthopedic Surgery Additional Past Surgical History / Comment(s): 3 ARTHROSCOPIES TIM KNEES. Past Anesthesia/Blood Transfusion Reactions: No Reported Reaction Past Psychological History: No Psychological Hx Reported Smoking Status: Never smoker Past Alcohol Use History: Occasional Past Drug Use History: None Reported - Past Family History Father Family Medical History: Cancer Additional Family Medical History / Comment(s): COLON CANCER Mother Family Medical History: Myocardial Infarction ([place]) Additional Family Medical History / Comment(s): HEART STENTS PLACED Medications and Allergies Home Medications Medication Instructions Recorded Confirmed Type Folic Acid 1 mg PO DAILY 06/23/19 02/09/21 History Omeprazole [PriLOSEC] 20 mg PO DAILY 06/23/19 02/09/21 History Cephalexin [Keflex] 1,000 mg PO Q12HR 02/09/21 02/09/21 History Cholecalciferol [Vitamin D3 (25 100 mcg PO DAILY 02/09/21 02/09/21 History Mcg = 1000 Iu)] Warfarin [Coumadin] 3 mg PO DAILY 02/09/21 02/09/21 History Warfarin [Coumadin] 5 mg PO DAILY 02/09/21 02/09/21 History Allergies Allergy/AdvReac Type Severity Reaction Status Date / Time No Known Allergies Allergy Verified 02/09/21 08:02 Physical Examination Right knee: Inspection: Right knee is inflamed, erythematous, edematous, effusion in pr epatellar and suprapatellar region. small circular scab present just distal to patella. Erythematous area runs from above knee and spreads to below knee. Negative for any open fractures, wounds, purulence Palpation: Diffuse TTP and warm to touch throughout the knee, especially over patella. TTP is worse with deep palpation. Medial and lateral joint lines TTP. TTP is nonspecific Sensation: sensation is intact, symmetric equal bilateral legs. ROM: -10 degrees full extension right knee. Limited flexion of knee due to patients pain. Patient is able to raise leg off of bed without pain Neurovascular- DP present, intact, 2+. cap refill < 3 seconds in big toe right foot. Results - Labs Labs: Abnormal Lab Results - Last 24 Hours (Table) 02/09/21 02/09/21 02/09/21 Range/Units 06:53 06:53 06:53 WBC 19.8 H (3.8-10.6) k/uL Plt Count 142 L (150-450) k/uL Neutrophils # 17.1 H (1.3-7.7) k/uL Monocytes # 1.2 H (0-1.0) k/uL PT 38.9 H (9.0-12.0) sec INR 4.0 H (<1.2) APTT 38.4 H (22.0-30.0) sec Sodium 134 L (137-145) mmol/L Carbon Dioxide 19 L (22-30) mmol/L Glucose 217 H (74-99) mg/dL Total Bilirubin 3.0 H (0.2-1.3) mg/dL ALT 52 H (4-49) U/L C-Reactive Protein 6.6 H (<1.0) mg/dL H & H 02/09/21 Range/Units 06:53 Hgb 16.0 (13.0-17.5) gm/dL Hct 48.7 (39.0-53.0) % Coagulation 02/09/21 Range/Units 06:53 INR 4.0 H (<1.2) Result Diagrams: 02/09/21 06:53 02/09/21 06:53 Assessment and Plan Assessment: 1. right knee cellulitis; prepatellar bursiitis; effusion Plan: 1. Right knee cellulitis; prepatellar bursitis; effusion right knee - Patient was seen at bediside this morning with . Aspiration performed and aerobic, anaerobic cultures, fungal cultures and gram stain sent to lab. View procedure not for further detail. I will discuss with my attending about potential surgical intervention. Patient on IV Vanco and Zosyn currently. NPO order currently 2. Appreciate medical and Infectious disease management 3. Pain Management Time with Patient: Less than 30
--- NOTE | 2021-02-09 12:28 | P.PCN ---
Date of Procedure: 02/09/21 Preoperative Diagnosis: Right knee effusion, concern for possible septic arthritis Postoperative Diagnosis: Right knee hemarthrosis Procedure(s) Performed: Right knee aspiration Anesthesia: local Surgeon: Timo Jones Estimated Blood Loss (ml): 1 Pathology: other (Fluid obtained from the right knee was sent to lab for anaerobic, aerobic cultures, fungal cultures, cell count, Gram stain, crystal analysis) Condition: stable Disposition: no change Operative Findings: Right knee pain with effusion, concern for possible septic arthritis Description of Procedure: The risk and benefits of the procedure were discussed the patient today at bedside, he is in good understanding and would like to proceed. A consent form was obtained prior to the procedure, a timeout was done at bedside with the nursing staff. Appropriate paperwork was signed and dated. Patient was in supine position, the knee was prepped with 1 iodine swab and one alcohol swab. A 20-gauge needle was used to first inject 3 mL of 1% plain lidocaine via the suprapatellar approach. After anesthetization, I then aspirated about 50 mL of bloody joint fluid from the knee. Patient tolerated procedure well, a bandage was placed after the aspiration. Fluid was then sent to the lab for anaerobic and aerobic cultures, fungal cultures, cell count, Gram stain and crystal analysis.
[2021-02-09 14:06] LABS: Appearance,BF Bloody; RBC, Body Fluid 156500 /uL
[2021-02-09 14:07] LABS: Nucleated Cells, Body Fluid 16750 /uL
[2021-02-09 14:08] LABS: Mononuclear WBC,Body Fluid 10 %; Polynuclear WBC,Body Fluid 90 %; Total Cells Counted,Body Fluid 100
[2021-02-09] MEDS: ACETAMINOPHEN TAB 325 MG TAB PO PRN (15:05)
[2021-02-09] MEDS: AMPICILLIN-SULBACTAM 3 GM in SODIUM CHLORIDE 0.9% 100 ML IVPB SCH ×2 (15:05→21:34)
--- NOTE | 2021-02-09 16:34 | P.HPIM ---
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 He presented to the hospital with a chief complaint of right knee pain, redness, and swelling. Patient reports he worked out yesterday morning before work and started noticing some pain and swelling in his right knee and states by 10:30 AM he noticed this pain and swelling was accompanied by significant redness and made an appointment to his PCPs office in which he was diagnosed with cellulitis, given a shot of antibiotics and was started on cephalexin 500 mg every 12 hours. Patient states he took medication as directed, however the redness, pain, and swelling worsened and he was instructed by his PCP to come to the hospital. Patient reports pain upon walking in his right knee as well as decreased range of motion secondary to pain. An x-ray right knee was completed in the emergency department showing no acute fracture or dislocation with normal appearance of tricompartmental joint spaces. Lab findings revealed leukocytosis with WBC count of 19.8 with a left shift, thrombocytopenia with a platelet count of 142,000, elevated CRP at 6.6, and supratherapeutic INR of 4.0. Patient was started on IV antibiotics vancomycin and Unasyn. Patient is admitted under our services with consultation to orthopedic surgery, infectious disease, and hematology. Patient denies fevers, chills, headache, lightheadedness, dizziness, chest pain, palpitations, shortness of breath, cough or congestion, abdominal pain, nausea, vomiting, or experiencing any numbness or tingling in extremities. Review of systems: Pertinent positives and negatives as discussed in HPI, a complete review of systems was performed and all other systems are negative. Physical exam: Vital signs reviewed and stable. General: Nontoxic, no distress and appears stated age. Derm: Moderate erythema and edema to right anterior knee extending just superiorly and inferiorly to right knee. Area being traced by skin marker. Head: Atraumatic, normocephalic and symmetric. Eyes: EOMs intact, no lid lag, and anicteric sclera Mouth: no lip lesions, mucus membranes moist Cardiovascular: regular rate and rhythm with normal S1S2, no murmur, positive posterior tibial pulses bilaterally, and cap refill < 2 seconds. Lungs: Respirations even, regular, and unlabored on room air. Lungs CTA bilaterally, no rhonchi, no rales, no wheezing, and no accessory muscle usage. Abdominal: soft, nontender to palpation, no guarding, no appreciable organomegaly Ext: ROM intact. No gross muscle atrophy, no edema, no contractures Neuro: Speech clear, face symmetrical and CN II-XII grossly intact with no noted focal neuro deficits Psych: Alert and oriented to person, place, time, and situation. Appropriate and pleasant affect. Assessment and Plan of Care: Right knee cellulitis with concerns of septic arthritis -Leukocytosis with WBC 19.8 and elevated CRP of 6.6 -IV antibiotics: Vancomycin and Unasyn -Blood cultures and joint aspiration/synovial fluid cultures obtained -We will hold Coumadin at this time for possible I&D tomorrow, if patient remains supratherapeutic we will consider reversal in case of urgent procedure. -Consult orthopedic surgery and infectious disease. -Repeat daily CBC, CRP, and obtain a uric acid level. -Symptomatic care and pain management. -Fall precautions Factor V clotting deficiency with history of DVTs and PEs on Coumadin -Supratherapeutic INR 4.0 -We will hold Coumadin at this time due to supratherapeutic INR and for possible I&D tomorrow, if patient remains supratherapeutic we will consider reversal in case of urgent procedure. Pt may return to DVT prophylaxis with coumadin once I&D completed, pharmacy to dose. -Consult to hematology. Hyperbilirubinemia -Patient denies any GI complaints. -Nonicteric -Will repeat liver profile with a.m. labs The patient is admitted with an anticipated greater than 2 midnight stay for evaluation of cellulitis right knee Surrogate decision-maker: CODE STATUS: Full code DVT prophylaxis: Coumadin, pharmacy to dose Discussed with: Patient and RN Anticipated discharge date: Clinical course to determine Anticipated discharge place: Home A total of 45 minutes was spent on the care of this complex patient more than 50% of the time was spent in counseling and care coordination. Past Medical History Past Medical History: Deep Vein Thrombosis (DVT) Additional Past Medical History / Comment(s): DVT 7-8YRS AGO question will pulmonary emboli 7 years ago History of Any Multi-Drug Resistant Organisms: None Reported Past Surgical History: Orthopedic Surgery Additional Past Surgical History / Comment(s): 3 ARTHROSCOPIES TIM KNEES. Past Anesthesia/Blood Transfusion Reactions: No Reported Reaction Past Psychological History: No Psychological Hx Reported Smoking Status: Never smoker Past Alcohol Use History: Occasional Past Drug Use History: None Reported - Past Family History Father Family Medical History: Cancer Additional Family Medical History / Comment(s): COLON CANCER Mother Family Medical History: Myocardial Infarction ([place]) Additional Family Medical History / Comment(s): HEART STENTS PLACED Medications and Allergies Home Medications Medication Instructions Recorded Confirmed Type Folic Acid 1 mg PO DAILY 06/23/19 02/09/21 History Omeprazole [PriLOSEC] 20 mg PO DAILY 06/23/19 02/09/21 History Cephalexin [Keflex] 1,000 mg PO Q12HR 02/09/21 02/09/21 History Cholecalciferol [Vitamin D3 (25 100 mcg PO DAILY 02/09/21 02/09/21 History Mcg = 1000 Iu)] Warfarin [Coumadin] 3 mg PO DAILY 02/09/21 02/09/21 History Warfarin [Coumadin] 5 mg PO DAILY 02/09/21 02/09/21 History Allergies Allergy/AdvReac Type Severity Reaction Status Date / Time No Known Allergies Allergy Verified 02/09/21 08:02 Physical Exam Vitals: Vital Signs Temp Pulse Pulse Resp BP BP BP 02/09/21 15:00 100.2 F H 88 16 115/77 02/09/21 14:00 81 18 02/09/21 11:38 81 18 02/09/21 11:37 99.0 F 81 18 128/83 02/09/21 09:00 98.2 F 81 22 130/84 02/09/21 06:18 97.9 F 85 22 134/76 Pulse Ox 02/09/21 15:00 93 L 02/09/21 14:00 02/09/21 11:38 02/09/21 11:37 96 02/09/21 09:00 98 02/09/21 06:18 97 Intake and Output 02/09/21 02/09/21 02/09/21 06:59 14:59 22:59 Other: Voiding Method Toilet # Voids 3 Weight 108.862 kg 108.862 kg Results CBC & Chem 7: 02/09/21 06:53 02/09/21 06:53 Labs: Abnormal Lab Results - Last 24 Hours (Table) 02/09/21 02/09/21 02/09/21 Range/Units 06:53 06:53 06:53 WBC 19.8 H (3.8-10.6) k/uL Plt Count 142 L (150-450) k/uL Neutrophils # 17.1 H (1.3-7.7) k/uL Monocytes # 1.2 H (0-1.0) k/uL PT 38.9 H (9.0-12.0) sec INR 4.0 H (<1.2) APTT 38.4 H (22.0-30.0) sec Sodium 134 L (137-145) mmol/L Carbon Dioxide 19 L (22-30) mmol/L Glucose 217 H (74-99) mg/dL Total Bilirubin 3.0 H (0.2-1.3) mg/dL ALT 52 H (4-49) U/L C-Reactive Protein 6.6 H (<1.0) mg/dL Thrombosis Risk Factor Assmnt - Choose All That Apply Any of the Below Risk Factors Present?: Yes Each Factor Represents 1 point: Age 41-60 years, Obesity (BMI >25) Other Risk Factors: Yes Each Risk Factor Represents 3 Points: Positive Factor V Leiden, History of DVT/PE Other congenital or acquired thrombophilia - If yes, enter type in comment: No Thrombosis Risk Factor Assessment Total Risk Factor Score: 8 Thrombosis Risk Factor Assessment Level: High Risk <Yung Allen - Last Filed: 02/09/21 17:46> History of Present Illness Chief Complaint: Right knee swelling and pain Physical Exam Osteopathic Statement: *. No significant issues noted on an osteopathic str uctural exam other than those noted in the History and Physical/Consult. Vitals: Vital Signs Temp Pulse Pulse Resp BP BP BP 02/09/21 16:38 99.5 F 02/09/21 15:00 100.2 F H 88 16 115/77 02/09/21 14:00 81 18 02/09/21 11:38 81 18 02/09/21 11:37 99.0 F 81 18 128/83 02/09/21 09:00 98.2 F 81 22 130/84 02/09/21 06:18 97.9 F 85 22 134/76 Pulse Ox 02/09/21 16:38 02/09/21 15:00 93 L 02/09/21 14:00 02/09/21 11:38 02/09/21 11:37 96 02/09/21 09:00 98 02/09/21 06:18 97 Intake and Output 02/09/21 02/09/21 02/09/21 06:59 14:59 22:59 Other: Voiding Method Toilet # Voids 3 Weight 108.862 kg 108.862 kg Results CBC & Chem 7: 02/09/21 06:53 02/09/21 06:53 Labs: Abnormal Lab Results - Last 24 Hours (Table) 02/09/21 02/09/21 02/09/21 Range/Units 06:53 06:53 06:53 WBC 19.8 H (3.8-10.6) k/uL Plt Count 142 L (150-450) k/uL Neutrophils # 17.1 H (1.3-7.7) k/uL Monocytes # 1.2 H (0-1.0) k/uL PT 38.9 H (9.0-12.0) sec INR 4.0 H (<1.2) APTT 38.4 H (22.0-30.0) sec Sodium 134 L (137-145) mmol/L Carbon Dioxide 19 L (22-30) mmol/L Glucose 217 H (74-99) mg/dL Total Bilirubin 3.0 H (0.2-1.3) mg/dL ALT 52 H (4-49) U/L C-Reactive Protein 6.6 H (<1.0) mg/dL Assessment and Plan Assessment: Patient seen and evaluated by me independently. Patient was also seen by SHANE, the original author of this note. I am in agreement with the subjective, physical exam, and assessment and plan as documented with the addition/changes of my exam and assessment below. Gen: awake, alert HEENT: normocephalic, atraumatic, good hearing acuity, moist mucous membranes Resp: good air exchange, breathing comfortably with no accessory muscle use CVS: good distal perfusion x 4, GI: soft, NTTP, ND : no SPT, no CVAT, garcia catheter not present MSK: no pitting edema, no clubbing, right knee with swelling and surrounding erythema, stiffness Neuro: non-focal, moving all extremities Psych: cooperative, euthymic mood Plan: Follow-up microbiology from synovial fluid ID consult Continue vancomycin Patient will likely require washout on 02/09 Patient has high risk pulmonary embolism, and will require periprocedural heparin bridging Should patient's INR remains supratherapeutic for procedure, we will reverse his blood thinner and place on heparin within 2-4 hours post procedure Pharmacy to help with Coumadin management
[2021-02-09] MEDS: VANCOMYCIN 1,750 MG in SODIUM CHLORIDE 0.9% 500 ML 500 ML IVPB SCH (17:55)
[2021-02-09] MEDS ORDERED: WARFARIN 0.5 MG TAB PO NR (18:00)
[2021-02-09] MEDS ORDERED: PHYTONADIONE 5 MG in SODIUM CHLORIDE 0.9% 50 ML IVPB STA (18:40)
--- NOTE | 2021-02-09 19:02 | P.CONS ---
History of Present Illness - Reason for Consult Consult date: 02/09/21 Hypercoagulable state, procedure Requesting physician: Jori Ricketts - Chief Complaint RLE Cellulitis - History of Present Illness Mr. Solorio was initially evaluated in October of [address] [facility] with DVT and bilateral PE after Cholecystectomy. 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 Patient reports factor V and antithrombin III. Was treated with a full year of Coumadin therapy, followed by ASA (81mg) for life. He was then seen again 2014, by Dr. Kilgore after reported being in-compliant with ASA lately and just returned from a trip to [place] where he did not ambulated as he usually does. Presented to [facility] with pain & edema in [place], was found to have acute below-knee RLE DVT. He was started on Lovenox > Coumadin and being managed by Dr Honeycutt. At this time he was advised with lifelong anticoagulation therapy. In 2018 he underwent a lung biopsy, his warfarin was held without bridging and developed Pulmonary embolism. Patient had CT chest showing multiple lesions which led to a PET scan performed on 06/18. It is commented in the PET report "some associated hypermetabolic uptake present", no SUV is reported. Patient had a biopsy with Dr. Jean Baptiste on 06/24 it was nondiagnostic. His Coumadin was held 06/19 through 06/24, he did not use lovenox from bridging, his shortness of breath started 07/01 (after a 9 hour car ride and sitting in a deer blind). He now presents with RLE cellulitis. Per patient planning intervention tomorrow or Friday which requires holding his warfarin, because of the last procedure resulting in Pulmonary Emboli post withholding his AC therapy and his known hypercoagulable state at baseline we have been asked to evaluate and provide recommendations to proceed. Today he is status post - Right knee pain with effusion, concern for possible s eptic arthritis with Ortho His INR is 4 today, for safe procedure with risk of bleeding ideally INR should be closer to 1.5, therefore we will proceed with vitamin K intravenous and bridge with heparin drip, which can be held prior to procedure X amount of hours before per ortho. Patient agrees with plan, discussed with nursing as bolus heparin drip will be held on initiation. To note patients total bili was also elevated, trending this was increased comparison. Mild LFT increase. Abdominal ultrasound ordered. Patient has a known alcohol use 3-4 days a week in which he admits to drinking "5,6,7,...Spritxers per week" however the past week he has not drank but has taken large amounts of tylenol. Review of Systems All systems: negative Constitutional: Reports as per HPI Past Medical History Past Medical History: Deep Vein Thrombosis (DVT) Additional Past Medical History / Comment(s): DVT 7-8YRS AGO question will pulmonary emboli 7 years ago History of Any Multi-Drug Resistant Organisms: None Reported Past Surgical History: Orthopedic Surgery Additional Past Surgical History / Comment(s): 3 ARTHROSCOPIES TIM KNEES. Past Anesthesia/Blood Transfusion Reactions: No Reported Reaction Past Psychological History: No Psychological Hx Reported Smoking Status: Never smoker Past Alcohol Use History: Occasional Past Drug Use History: None Reported - Past Family History Father Family Medical History: Cancer Additional Family Medical History / Comment(s): COLON CANCER Mother Family Medical History: Myocardial Infarction ([place]) Additional Family Medical History / Comment(s): HEART STENTS PLACED Medications and Allergies Home Medications Medication Instructions Recorded Confirmed Type Folic Acid 1 mg PO DAILY 06/23/19 02/09/21 History Omeprazole [PriLOSEC] 20 mg PO DAILY 06/23/19 02/09/21 History Cephalexin [Keflex] 1,000 mg PO Q12HR 02/09/21 02/09/21 History Cholecalciferol [Vitamin D3 (25 100 mcg PO DAILY 02/09/21 02/09/21 History Mcg = 1000 Iu)] Warfarin [Coumadin] 3 mg PO DAILY 02/09/21 02/09/21 History Warfarin [Coumadin] 5 mg PO DAILY 02/09/21 02/09/21 History Allergies Allergy/AdvReac Type Severity Reaction Status Date / Time No Known Allergies Allergy Verified 02/09/21 08:02 Physical Exam Vitals: Vital Signs Temp Pulse Pulse Resp BP BP BP 02/09/21 16:38 99.5 F 02/09/21 15:00 100.2 F H 88 16 115/77 02/09/21 14:00 81 18 02/09/21 11:38 81 18 02/09/21 11:37 99.0 F 81 18 128/83 02/09/21 09:00 98.2 F 81 22 130/84 02/09/21 06:18 97.9 F 85 22 134/76 Pulse Ox 02/09/21 16:38 02/09/21 15:00 93 L 02/09/21 14:00 02/09/21 11:38 02/09/21 11:37 96 02/09/21 09:00 98 02/09/21 06:18 97 Intake and Output 02/09/21 02/09/21 02/09/21 06:59 14:59 22:59 Other: Voiding Method Toilet # Voids 3 Weight 108.862 kg 108.862 kg - Constitutional General appearance: cooperative, no acute distress - EENT Eyes: EOMI, PERRLA ENT: NA/AT, normal oropharynx - Neck Neck: normal ROM - Respiratory Respiratory: bilateral: diminished - Cardiovascular Rhythm: regularly irregular leg Peripheral Edema: right: 2+ (Erythema, DOrsal Aspect Knee to Suresh. ) - Gastrointestinal General gastrointestinal: soft - Integumentary Integumentary: pale - Neurologic Neurologic: CNII-XII intact - Musculoskeletal Musculoskeletal: generalized weakness, strength equal bilaterally - Psychiatric Psychiatric: A&O x's 3, appropriate affect, intact judgment & insight Results CBC & Chem 7: 02/09/21 06:53 02/09/21 06:53 Labs: Abnormal Lab Results - Last 24 Hours (Table) 02/09/21 02/09/21 02/09/21 Range/Units 06:53 06:53 06:53 WBC 19.8 H (3.8-10.6) k/uL Plt Count 142 L (150-450) k/uL Neutrophils # 17.1 H (1.3-7.7) k/uL Monocytes # 1.2 H (0-1.0) k/uL PT 38.9 H (9.0-12.0) sec INR 4.0 H (<1.2) APTT 38.4 H (22.0-30.0) sec Sodium 134 L (137-145) mmol/L Carbon Dioxide 19 L (22-30) mmol/L Glucose 217 H (74-99) mg/dL Total Bilirubin 3.0 H (0.2-1.3) mg/dL ALT 52 H (4-49) U/L C-Reactive Protein 6.6 H (<1.0) mg/dL Comments: Xray knee reviewed Assessment and Plan (1) Hypercoagulable state Current Visit: Yes Status: Acute Code(s): D68.59 - OTHER PRIMARY THROMBOPHILIA SNOMED Code(s): 75988533 (2) Hyperbilirubinemia Current Visit: Yes Status: Acute Code(s): E80.6 - OTHER DISORDERS OF BILIRUBIN METABOLISM SNOMED Code(s): 39453491 (3) History of pulmonary embolus (PE) Current Visit: Yes Status: Acute Code(s): Z86.711 - PERSONAL HISTORY OF PULMONARY EMBOLISM SNOMED Code(s): 403213957 (4) Cellulitis Current Visit: Yes Status: Acute Code(s): L03.90 - CELLULITIS, UNSPECIFIED SNOMED Code(s): 490301828 Plan: His INR is 4 today, for safe procedure with risk of bleeding ideally INR should be closer to 1.5, therefore we will proceed with vitamin K intravenous and bridge with heparin drip, which can be held prior to procedure X amount of hours before per ortho. Patient agrees with plan, discussed with nursing as bolus heparin drip will be held on initiation. To note patients total bili was also elevated, trending this was increased comparison. Mild LFT increase. Abdominal ultrasound ordered. Monitor CBC, CMP and Coags today and in am Thank you for allowing us to participate in the care of this patient.
[2021-02-09 19:44] LABS: Basophils % (A) 0 %; Eosinophils # (A) 0.1 k/uL (0-0.7); Eosinophils % (A) 1 %; HCT 43.7 % (39.0-53.0); HGB 14.5 gm/dL (13.0-17.5); Lymphocytes # (A) 1.8 k/uL (1.0-4.8); Lymphocytes % (A) 12 %; MCH 30.7 pg (25.0-35.0); MCHC 33.2 g/dL (31.0-37.0); MCV 92.4 fL (80.0-100.0); Mean Platelet Volume 8.6; Monocytes # (A) 0.8 k/uL (0-1.0); Monocytes % (A) 5 %; Neutrophils # (A) 12.2 k/uL (1.3-7.7); Neutrophils % (A) 81 %; Platelet Count 119 k/uL (150-450); RBC 4.73 m/uL (4.30-5.90); RDW 12.7 % (11.5-15.5); WBC 15.1 k/uL (3.8-10.6)
[2021-02-09 19:46] LABS: INR 4.1 (<1.2); Partial Thromboplastin Time 39.9 sec (22.0-30.0); Prothrombin Time 39.2 sec (9.0-12.0)
--- NOTE | 2021-02-09 20:07 | US ---
EXAMINATION TYPE: US abdomen comp/pelvis limited DATE OF EXAM: 02/09/2021 COMPARISON: PET CT 06/18/2019 CLINICAL HISTORY: increased bili/lfts. Very limited exam due to overlying bowel gas EXAM MEASUREMENTS: Liver Length: 20.5 cm Gallbladder Wall: Surgically absent CBD: 0.5 cm Spleen: 12.6 cm Right Kidney: 11.9 x 6.0 x 5.4 cm Left Kidney: 13.5 x 6.3 x 4.9 cm Pancreas: Obscured by bowel gas Liver: Increased attenuation, coarse echotexture, enlarged Gallbladder: Surgically absent CBD: wnl as visualized, limited due to bowel gas Spleen: wnl Right Kidney: wnl Left Kidney: wnl Upper IVC: wnl Abd Aorta: Proximal portion appear ectatic, however evaluation is limited due to overlying bowel ga s Bladder: wnl Bilateral Jets Seen yes IMPRESSION: No acute abnormality of the limited abdominal/pelvic ultrasound. Hepatomegaly with steatosis.
[2021-02-09] MEDS: HEPARIN SOD,PORK IN 0.45% NACL 25,000 UNIT in 0.45% NACL 1 250ML.BAG IV SCH (21:00)
--- NOTE | 2021-02-09 22:08 | P.CONS ---
History of Present Illness - Reason for Consult Consult date: 02/09/21 right knee septic arthritis Requesting physician: Yung Allen - Chief Complaint right knee pain and swelling 1 days - History of Present Illness Patient is a 56-year-old male with a past medical history difficult for factor V Leiden deficiency history of DVT on Coumadin presented to the ER for evaluation of right knee pain and redness patient states that the symptoms started yesterday morning when he woke up he noticed to having a swelling and redness of the right anterior knee area with some extension onto the right anterior leg patient went to see his primary care physician patient received a dose of IM antibiotic and was started on Keflex patient was advised if any worsening of the swelling redness to go to the ER early this morning the patient noticed the area getting more swollen and red and painful patient describes the pain to be more of a throbbing in nature intensity is about 7-8 out of 10 and worse with walking along with stiffness of his right knee patient denies having any fever or chills on presentation however he did have a fever of 100.2 F resolved to noon patient did have white count of 19.8 his INR was 4.0 kidney function was normal patient did have x-rays of the knee which shows no fracture or dislocation patient was evaluated by orthopedics and the patient did have a right knee aspirate which was bloody with [id number] RBC and only 16,750 WBC predominantly PMN, patient was started on Unasyn and vancomycin infectious he was consulted for further management of antibiotic therapy Review of Systems Positive point has been mentioned in the HPI rest of the systems are negative Past Medical History Past Medical History: Deep Vein Thrombosis (DVT) Additional Past Medical History / Comment(s): DVT 7-8YRS AGO, PE's last one 1.5 years ago. factor 5 clotting disorder. History of Any Multi-Drug Resistant Organisms: None Reported Past Surgical History: Orthopedic Surgery Additional Past Surgical History / Comment(s): 3 ARTHROSCOPIES TIM KNEES. Past Anesthesia/Blood Transfusion Reactions: No Reported Reaction Past Psychological History: No Psychological Hx Reported Smoking Status: Never smoker Past Alcohol Use History: Occasional Past Drug Use History: None Reported - Past Family History Father Family Medical History: Cancer Additional Family Medical History / Comment(s): COLON CANCER Mother Family Medical History: Myocardial Infarction ([place]) Additional Family Medical History / Comment(s): HEART STENTS PLACED Medications and Allergies Home Medications Medication Instructions Recorded Confirmed Type Folic Acid 1 mg PO DAILY 06/23/19 02/09/21 History Omeprazole [PriLOSEC] 20 mg PO DAILY 06/23/19 02/09/21 History Cephalexin [Keflex] 1,000 mg PO Q12HR 02/09/21 02/09/21 History Cholecalciferol [Vitamin D3 (25 100 mcg PO DAILY 02/09/21 02/09/21 History Mcg = 1000 Iu)] Warfarin [Coumadin] 3 mg PO DAILY 02/09/21 02/09/21 History Warfarin [Coumadin] 5 mg PO DAILY 02/09/21 02/09/21 History Allergies Allergy/AdvReac Type Severity Reaction Status Date / Time No Known Allergies Allergy Verified 02/09/21 08:02 Physical Exam Vitals: Vital Signs Temp Pulse Pulse Resp BP BP Pulse Ox 02/09/21 11:38 81 18 02/09/21 11:37 99.0 F 81 18 128/83 96 02/09/21 09:00 98.2 F 81 22 130/84 98 02/09/21 06:18 97.9 F 85 22 134/76 97 Intake and Output 02/08/21 02/09/21 02/09/21 22:59 06:59 14:59 Other: Voiding Method Toilet Weight 108.862 kg 108.862 kg GENERAL DESCRIPTION: Middle-aged male lying in bed, no distress. No tachypnea or accessory muscle of respiration use. HEENT: Shows Pallor , no scleral icterus. Oral mucous membrane is dry. No pharyngeal erythema or thrush NECK: Trachea central, no thyromegaly. LUNGS: Unlabored breathing. Clear to auscultation anteriorly. No wheeze or crackle. HEART: S1, S2, regular rate and rhythm. No loud murmur ABDOMEN: Soft, no tenderness , guarding or rigidity, no organomegaly EXTREMITIES: No edema of feet. Right knee is swollen and red warm to touch SKIN: No rash, no masses palpable. NEUROLOGICAL: The patient is awake, alert, oriented x3, mood and affect normal. Results CBC & Chem 7: 02/09/21 18:47 02/09/21 06:53 Labs: Abnormal Lab Results - Last 24 Hours (Table) 02/09/21 02/09/21 02/09/21 Range/Units 06:53 06:53 06:53 WBC 19.8 H (3.8-10.6) k/uL Plt Count 142 L (150-450) k/uL Neutrophils # 17.1 H (1.3-7.7) k/uL Monocytes # 1.2 H (0-1.0) k/uL PT 38.9 H (9.0-12.0) sec INR 4.0 H (<1.2) APTT 38.4 H (22.0-30.0) sec Sodium 134 L (137-145) mmol/L Carbon Dioxide 19 L (22-30) mmol/L Glucose 217 H (74-99) mg/dL Total Bilirubin 3.0 H (0.2-1.3) mg/dL ALT 52 H (4-49) U/L C-Reactive Protein 6.6 H (<1.0) mg/dL Assessment and Plan Assessment: patient presented to hospital with right knee pain and swelling and redness acute in onset without any history of any trauma in this patient who do have a history of factor V Leiden deficiency on chronic Coumadin therapy concern is for possible hemarthrosis clinically not behaving as a septic arthritis in this patient who is status post aspiration of the right knee which was bloody and the white count was significantly elevated (1) Cellulitis of right knee Current Visit: Yes Status: Acute Code(s): L03.115 - CELLULITIS OF RIGHT LOWER LIMB SNOMED Code(s): 97733322711617987 Plan: 1-patient to continue the vancomycin and Unasyn while waiting for the culture to finalize 2-marked the area of the redness We will follow on clinical condition and cultures to further adjust medication if needed Thank you for this consultation we will follow the patient along with you Family at the bedside questions concerns were answered Time with Patient: Greater than 30
[2021-02-10] MEDS: ACETAMINOPHEN TAB 325 MG TAB PO PRN ×2 (01:27→20:09)
[2021-02-10] MEDS: AMPICILLIN-SULBACTAM 3 GM in SODIUM CHLORIDE 0.9% 100 ML IVPB SCH ×3 (02:27→16:13)
[2021-02-10] MEDS: VANCOMYCIN 1,750 MG in SODIUM CHLORIDE 0.9% 500 ML 500 ML IVPB SCH ×3 (03:00→20:09)
[2021-02-10] MEDS: SODIUM CHLORIDE 0.9% 1,000 ML IV SCH ×3 (03:06→21:42)
[2021-02-10 05:13] LABS: INR 1.8 (<1.2); Partial Thromboplastin Time 34.9 sec (22.0-30.0); Prothrombin Time 17.9 sec (9.0-12.0)
[2021-02-10] MEDS: HEPARIN SODIUM 1,000 UN/ML (10ML VL) IV PRN ×3 (05:32→20:24)
[2021-02-10] MEDS: FOLIC ACID 1 MG TAB PO SCH (07:48)
[2021-02-10] MEDS: PANTOPRAZOLE 40 MG TABLET PO SCH (07:48)
[2021-02-10] MEDS: CHOLECALCIFEROL 25 MCG (1000 IU) TABLET PO SCH (07:48)
[2021-02-10] MEDS ORDERED: DOCUSATE 100 MG CAP PO PRN (08:45)
[2021-02-10] MEDS ORDERED: VANCOMYCIN TROUGH DUE 1 EACH MISC MISCELLANE ONE (09:00)
--- NOTE | 2021-02-10 10:07 | P.PN ---
Subjective Progress Note Date: 02/10/21 Principal diagnosis: R knee cellulitis Pt s/e. Doing much better today. Minimal pain with movement of the knee. Swelling much better. Denies any f/c/sob/cp at this time. Erythema improving, however he has developed a rash in his axilla and groin since being in hospital. States this does not bother him at this time. Denies any other issues. Objective - Vital Signs Vital signs: Vital Signs Temp 98.4 F 02/10/21 07:00 Pulse 84 02/10/21 07:00 Resp 16 02/10/21 07:00 BP 121/75 02/10/21 07:00 Pulse Ox 94 L 02/10/21 07:00 Intake & Output 02/09/21 02/10/21 02/10/21 18:59 06:59 18:59 Intake Total 85.333 Output Total 250 Balance 85.333 -250 Weight 108.862 kg Intake: Intake, IV Titration 85.333 Amount Heparin Sod,Pork in 0.45% 85.333 NaCl 25,000 unit In 0.45 % NaCl 1 250ml.bag @ 9. 186 UNITS/KG/HR 10 mls/hr IV .Q24H [facility] Rx#: [id number] Output: Urine 250 Other: Voiding Method Toilet Toilet # Voids 3 2 - Exam Erythema and cellulitis about the Lt knee. No drainage, flucctuence noted. Some anterior patellar bursal TTP. No TTP about the knee. Continued moderate 1- 2+ effusion. No pain with passive or active ROM of the knee. Stable to varus, valgus, ant, post drawr tests. No mcmurrays. 5/5 DF/PF/EHL/FHL. SILT L2-S1/ +DP/PT pulses compartments soft compressive. - Labs CBC & Chem 7: 02/09/21 18:47 02/09/21 06:53 Labs: Abnormal Lab Results - Last 24 Hours (Table) 02/09/21 02/09/21 02/10/21 Range/Units 18:47 18:47 04:40 WBC 15.1 H (3.8-10.6) k/uL Plt Count 119 L (150-450) k/uL Neutrophils # 12.2 H (1.3-7.7) k/uL PT 39.2 H 17.9 H (9.0-12.0) sec INR 4.1 H 1.8 H (<1.2) APTT 39.9 H 34.9 H (22.0-30.0) sec Microbiology - Last 24 Hours (Table) 02/09/21 06:55 Blood Culture - Preliminary Blood No Growth after 24 hours 02/09/21 06:45 Blood Culture - Preliminary Blood No Growth after 24 hours 02/09/21 12:06 Gram Stain - Preliminary Knee - Right Body Fluid Culture - Preliminary 02/09/21 12:10 Fungal Culture - Preliminary Knee - Right 02/09/21 12:10 Anaerobic Culture - Preliminary Knee - Right Assessment and Plan Assessment: 56 yo male Left knee pain Hemearthrosis, supratherapeutic INR POA Cellulitis LLE Patella bursitis Plan: Cont with conservative management IVABX Synovial WBC were 90 with RBC in 150k supporting hemarthrosis and no infective process. No growth in cultures over 24 hrs. Rogelio wrap to knee if tolerated for swelling and effusion control. Pt may not tolerate due to cellulitis and pain. Pain meds PRN No emergent orthopedic surgical intervention will continue to follow clinically.
[2021-02-10 11:02] LABS: African American GFR (CKD) 97.8 (60.0-200.0); Albumin 3.7 g/dL (3.80-4.90); Albumin/Globulin Ratio 1.68 (1.60-3.17); C Reactive Protein 13.8 mg/dL (0.0-0.8); Calcium 8.2 mg/dL (8.7-10.3); Globulin 2.2 g/dL (1.6-3.3); Non-African American GFR(CKD) 84.4 (60.0-200.0); Potassium 4.3 mmol/L (3.5-5.5); Total Bilirubin 2.5 mg/dL (0.3-1.2); Total Protein 5.9 g/dL (6.2-8.2); Uric Acid 4.2 mg/dL (3.7-8.7)
[2021-02-10 11:24] LABS: Basophils # (A) 0.02 X 10*3/uL (0.00-0.10); Basophils % (A) 0.1 %; Eosinophils % (A) 0.7 %; HCT 44.7 % (39.6-50.0); HGB 14.4 g/dL (13.0-17.0); Lymphocytes # (A) 1.57 X 10*3/uL (0.90-5.00); Lymphocytes % (A) 11.1 %; MCH 29.8 pg (27.0-32.0); MCHC 32.2 g/dL (32.0-37.0); MCV 92.4 fL (80.0-97.0); Mean Platelet Volume 11.3 fL (9.5-12.2); Monocytes # (A) 0.87 X 10*3/uL (0.20-1.00); Monocytes % (A) 6.2 %; Neutrophils # (A) 11.46 X 10*3/uL (1.80-7.70); Neutrophils % (A) 81.3 %; Platelet Count 121 X 10*3/uL (140-440); RBC 4.84 X 10*6/uL (4.40-5.60); RDW 12.9 % (11.5-14.5); WBC 14.11 X 10*3/uL (4.50-10.00)
[2021-02-10 12:11] LABS: African American GFR (CKD) >90 (>60 ml/min/1.73 sqM); Non-African American GFR(CKD) >90 (>60 ml/min/1.73 sqM)
--- NOTE | 2021-02-10 12:19 | P.PN ---
Subjective Progress Note Date: 02/10/21 No new complaints. Pt reports significant improvement in the pain in the knee. Also appears the redness is fading. Pt does appear to have a new rash, predominantly intertriginous zones, however, it is not itchy or concerning for him. Objective - Vital Signs Vital signs: Vital Signs Temp 98.4 F 02/10/21 07:00 Pulse 84 02/10/21 07:00 Resp 16 02/10/21 07:00 BP 121/75 02/10/21 07:00 Pulse Ox 94 L 02/10/21 07:00 Intake & Output 02/09/21 02/10/21 02/10/21 18:59 06:59 18:59 Intake Total 85.333 Output Total 250 Balance 85.333 -250 Weight 108.862 kg Intake: Intake, IV Titration 85.333 Amount Heparin Sod,Pork in 0.45% 85.333 NaCl 25,000 unit In 0.45 % NaCl 1 250ml.bag @ 9. 186 UNITS/KG/HR 10 mls/hr IV .Q24H [facility] Rx#: [id number] Output: Urine 250 Other: Voiding Method Toilet Toilet # Voids 3 2 - Exam Gen: awake, alert HEENT: normocephalic, atraumatic, good hearing acuity, moist mucous membranes Resp: good air exchange, breathing comfortably with no accessory muscle use CVS: good distal perfusion x 4, GI: soft, NTTP, ND : no SPT, no CVAT, garcia catheter not present MSK: no pitting edema, no clubbing, right knee with swelling and surrounding erythema, stiffness Neuro: non-focal, moving all extremities Psych: cooperative, euthymic mood - Labs CBC & Chem 7: 02/10/21 04:40 02/10/21 11:10 Labs: Abnormal Lab Results - Last 24 Hours (Table) 02/09/21 02/09/21 02/10/21 Range/Units 18:47 18:47 04:40 WBC 15.1 H (3.8-10.6) k/uL Plt Count 119 L (150-450) k/uL Plt Count Comment Immature Gran # (0.00-0.04) X 10*3/uL Neutrophils # 12.2 H (1.3-7.7) k/uL PT 39.2 H 17.9 H (9.0-12.0) sec INR 4.1 H 1.8 H (<1.2) APTT 39.9 H 34.9 H (22.0-30.0) sec BUN/Creatinine Ratio (12.00-20.00) Ratio Glucose (70-110) mg/dL Calcium (8.7-10.3) mg/dL Total Bilirubin (0.3-1.2) mg/dL C-Reactive Protein (0.0-0.8) mg/dL Total Protein (6.2-8.2) g/dL Albumin (3.80-4.90) g/dL 02/10/21 02/10/21 02/10/21 Range/Units 04:40 04:40 11:10 WBC 14.11 H (3.8-10.6) k/uL Plt Count 121 L (150-450) k/uL Plt Count Comment DECREASED A Immature Gran # 0.09 H (0.00-0.04) X 10*3/uL Neutrophils # 11.46 H (1.3-7.7) k/uL PT (9.0-12.0) sec INR (<1.2) APTT 33.9 H (22.0-30.0) sec BUN/Creatinine Ratio 11.00 L (12.00-20.00) Ratio Glucose 144 H (70-110) mg/dL Calcium 8.2 L (8.7-10.3) mg/dL Total Bilirubin 2.5 H (0.3-1.2) mg/dL C-Reactive Protein 13.8 H (0.0-0.8) mg/dL Total Protein 5.9 L (6.2-8.2) g/dL Albumin 3.70 L (3.80-4.90) g/dL Microbiology - Last 24 Hours (Table) 02/09/21 06:55 Blood Culture - Preliminary Blood No Growth after 24 hours 02/09/21 06:45 Blood Culture - Preliminary Blood No Growth after 24 hours 02/09/21 12:06 Gram Stain - Preliminary Knee - Right Body Fluid Culture - Preliminary 02/09/21 12:10 Fungal Culture - Preliminary Knee - Right 02/09/21 12:10 Anaerobic Culture - Preliminary Knee - Right Assessment and Plan Assessment: Right knee cellulitis Hemarthrosis -Leukocytosis with WBC 19.8 and elevated CRP of 6.6 -IV antibiotics: Vancomycin and Unasyn -Blood cultures and joint aspiration/synovial fluid cultures obtained -Hematology following for coumadin/heparin management -Consult orthopedic surgery and infectious disease. -Repeat daily CBC, CRP, and obtain a uric acid level. -Symptomatic care and pain management. 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 Hyperbilirubinemia -Patient denies any GI complaints. -Nonicteric -Will repeat liver profile with a.m. labs The patient is admitted with an anticipated greater than 2 midnight stay for evaluation of cellulitis right knee Surrogate decision-maker: CODE STATUS: Full code DVT prophylaxis: Coumadin, pharmacy to dose Discussed with: Patient and RN Anticipated discharge date: Clinical course to determine Anticipated discharge place: Home
[2021-02-10 13:26] LABS: Erythrocyte Sedimentation Rate 16 mm/Hr (0-20)
[2021-02-10] MEDS: HEPARIN SOD,PORK IN 0.45% NACL 25,000 UNIT in 0.45% NACL 1 250ML.BAG IV SCH (16:14)
--- NOTE | 2021-02-10 19:26 | PN ---
PROGRESS NOTE DATE OF SERVICE: 02/10/2021 REASON FOR FOLLOWUP: 1. Right knee cellulitis. 2. Rash. INTERVAL HISTORY: Patient has been running a low-grade fever of 100 to 100.3. The patient is hemodynamically stable. The patient denies any chest pain, shortness of breath, cough, no abdominal pain. Overall pain and discomfort to the right leg has decreased. PHYSICAL EXAMINATION: Blood pressure is 127/75, pulse of 84. Temperature 100.3. He is 93% on room air. General description is a middle-aged male lying in bed in no distress. Respiratory system: Unlabored breathing. Clear to auscultation anteriorly. Heart S1, S2. Regular rate and rhythm. Abdomen: Soft. No tenderness. Right knee swelling and redness has slightly decreased. The patient has developed a rash. LABS: Hemoglobin is 14.4, white count 14.11. BUN of 11, creatinine 1.0. DIAGNOSTIC IMPRESSION AND PLAN: Patient with right knee cellulitis and concern for possible hemarthrosis versus septic arthritis. Cultures are so far pending. Patient developed a rash possibly related to be beta lactam. We will discontinue the Unasyn. Continue vancomycin while waiting for the culture to finalize and monitor clinical course closely. MMODL / IJN: [id number] /
[2021-02-11] MEDS: VANCOMYCIN 1,750 MG in SODIUM CHLORIDE 0.9% 500 ML 500 ML IVPB SCH ×3 (02:23→17:43)
[2021-02-11 03:47] LABS: African American GFR (CKD) >90 (>60 ml/min/1.73 sqM); Non-African American GFR(CKD) 88 (>60 ml/min/1.73 sqM)
[2021-02-11 04:03] LABS: INR 1.2 (<1.2); Prothrombin Time 12.5 sec (9.0-12.0)
[2021-02-11] MEDS: HEPARIN SODIUM 1,000 UN/ML (10ML VL) IV PRN (04:22)
[2021-02-11] MEDS: HEPARIN SOD,PORK IN 0.45% NACL 25,000 UNIT in 0.45% NACL 1 250ML.BAG IV SCH (04:30)
[2021-02-11] MEDS: CHOLECALCIFEROL 25 MCG (1000 IU) TABLET PO SCH (08:38)
[2021-02-11] MEDS: FOLIC ACID 1 MG TAB PO SCH (08:38)
[2021-02-11] MEDS: PANTOPRAZOLE 40 MG TABLET PO SCH (08:38)
[2021-02-11 09:00] LABS: Basophils % (A) 0 %; Eosinophils # (A) 0.5 k/uL (0-0.7); Eosinophils % (A) 4 %; Lymphocytes # (A) 1.2 k/uL (1.0-4.8); Lymphocytes % (A) 10 %; MCH 30.6 pg (25.0-35.0); MCHC 33.4 g/dL (31.0-37.0); MCV 91.7 fL (80.0-100.0); Mean Platelet Volume 8.8; Monocytes # (A) 0.6 k/uL (0-1.0); Monocytes % (A) 6 %; Neutrophils # (A) 8.6 k/uL (1.3-7.7); Neutrophils % (A) 77 %; Platelet Count 132 k/uL (150-450); RBC 4.58 m/uL (4.30-5.90); RDW 12.6 % (11.5-15.5); WBC 11.1 k/uL (3.8-10.6)
[2021-02-11] MEDS: NYSTATIN 100,000 UNIT/ML SUSP 500,000 UNIT/5 ML CUP PO SCH ×4 (09:51→23:06)
--- NOTE | 2021-02-11 10:18 | P.PN ---
Subjective Progress Note Date: 02/11/21 Principal diagnosis: . right knee cellulitis; prepatellar bursiitis; effusion Patient seen at bedside this morning. Patient was lying fire, in bed. Patient says he is feeling much better and has been able to get up out of bed and walk around the room without having any knee pain. He thinks he is improving very well. He notes that the swelling is down and his knee and the redness is decreased as well. Patient denies chest pain, fever, shortness breath, nausea, vomiting, change in vision, loss of bowel/bladder control. Objective - Vital Signs Vital signs: Vital Signs Temp 98.6 F 02/11/21 07:00 Pulse 80 02/11/21 07:00 Resp 17 02/11/21 07:00 BP 98/62 02/11/21 07:00 Pulse Ox 93 L 02/11/21 07:00 Intake & Output 02/10/21 02/11/21 02/11/21 18:59 06:59 18:59 Intake Total 964.667 250 600 Output Total 250 500 350 Balance 714.667 -250 250 Intake: Intake, IV Titration 164.667 250 Amount Heparin Sod,Pork in 0.45% 164.667 250 NaCl 25,000 unit In 0.45 % NaCl 1 250ml.bag @ 9. 186 UNITS/KG/HR 10 mls/hr IV .Q24H [facility] Rx#: [id number] Oral 800 600 Output: Urine 250 500 350 Other: # Voids 1 1 - Exam Right knee: Inspection: Right knee is still somewhat erythematous. Erythematous area decreasing in size since yesterday. Knee mildly warm to touch. Negative for any open fractures, wounds, purulence Palpation: Mild TTP over puncture site just distal to patella. rest of exam NTTP. Sensation: sensation is intact, symmetric equal bilateral legs. ROM: -Patient is able to flex and extend knee without pain. Neurovascular- DP present, intact, 2+. cap refill < 3 seconds in big toe right foot. - Labs CBC & Chem 7: 02/11/21 08:34 02/11/21 03:00 Labs: Abnormal Lab Results - Last 24 Hours (Table) 02/10/21 02/10/21 02/10/21 Range/Units 04:40 04:40 11:10 WBC 14.11 H (4.50-10.00) X 10*3/uL Plt Count 121 L (140-440) X 10*3/uL Plt Count Comment DECREASED A Immature Gran # 0.09 H (0.00-0.04) X 10*3/uL Neutrophils # 11.46 H (1.80-7.70) X 10*3/uL ESR (0-15) mm/hr PT (9.0-12.0) sec INR (<1.2) APTT 33.9 H (22.0-30.0) sec BUN/Creatinine Ratio 11.00 L (12.00-20.00) Ratio Glucose 144 H (70-110) mg/dL Calcium 8.2 L (8.7-10.3) mg/dL Total Bilirubin 2.5 H (0.3-1.2) mg/dL C-Reactive Protein 13.8 H (0.0-0.8) mg/dL Total Protein 5.9 L (6.2-8.2) g/dL Albumin 3.70 L (3.80-4.90) g/dL 02/10/21 02/11/21 02/11/21 Range/Units 17:59 03:00 03:00 WBC (4.50-10.00) X 10*3/uL Plt Count (140-440) X 10*3/uL Plt Count Comment Immature Gran # (0.00-0.04) X 10*3/uL Neutrophils # (1.80-7.70) X 10*3/uL ESR 21 H (0-15) mm/hr PT 12.5 H (9.0-12.0) sec INR 1.2 H (<1.2) APTT 36.4 H (22.0-30.0) sec BUN/Creatinine Ratio (12.00-20.00) Ratio Glucose (70-110) mg/dL Calcium (8.7-10.3) mg/dL Total Bilirubin (0.3-1.2) mg/dL C-Reactive Protein (0.0-0.8) mg/dL Total Protein (6.2-8.2) g/dL Albumin (3.80-4.90) g/dL 02/11/21 02/11/21 02/11/21 Range/Units 03:00 03:00 08:34 WBC (4.50-10.00) X 10*3/uL Plt Count (140-440) X 10*3/uL Plt Count Comment Immature Gran # (0.00-0.04) X 10*3/uL Neutrophils # (1.80-7.70) X 10*3/uL ESR (0-15) mm/hr PT (9.0-12.0) sec INR (<1.2) APTT 43.1 H 46.6 H (22.0-30.0) sec BUN/Creatinine Ratio (12.00-20.00) Ratio Glucose (70-110) mg/dL Calcium (8.7-10.3) mg/dL Total Bilirubin (0.3-1.2) mg/dL C-Reactive Protein 11.7 H (0.0-0.8) mg/dL Total Protein (6.2-8.2) g/dL Albumin (3.80-4.90) g/dL 02/11/21 Range/Units 08:34 WBC 11.1 H (4.50-10.00) X 10*3/uL Plt Count 132 L (140-440) X 10*3/uL Plt Count Comment Immature Gran # (0.00-0.04) X 10*3/uL Neutrophils # 8.6 H (1.80-7.70) X 10*3/uL ESR (0-15) mm/hr PT (9.0-12.0) sec INR (<1.2) APTT (22.0-30.0) sec BUN/Creatinine Ratio (12.00-20.00) Ratio Glucose (70-110) mg/dL Calcium (8.7-10.3) mg/dL Total Bilirubin (0.3-1.2) mg/dL C-Reactive Protein (0.0-0.8) mg/dL Total Protein (6.2-8.2) g/dL Albumin (3.80-4.90) g/dL Microbiology - Last 24 Hours (Table) 02/09/21 06:45 Blood Culture - Preliminary Blood No Growth after 48 hours 02/09/21 06:55 Blood Culture - Preliminary Blood No Growth after 48 hours 02/09/21 12:06 Gram Stain - Preliminary Knee - Right Body Fluid Culture - Preliminary Assessment and Plan Assessment: 1. right knee cellulitis; prepatellar bursiitis; effusion Plan: 1. Right knee cellulitis; prepatellar bursitis; effusion right knee - Patient was seen at bedside this morning. Patient doing better. Cellulitic area is decreasing in size. Swelling is decreasing around knee. Patient is able to walk around without pain and can extend flex knee without pain. Patient orthopedically stable for discharge. We do not recommend any orthopedic surgical intervention at this time. We will discuss with medicine and infectious disease about plan for discharge home with abx. 2. Appreciate medical and Infectious disease management - patient on Vanco. 3. Pain Management 4. DVT ppx - heparin 5. GI ppx - docusate Time with Patient: Less than 30
--- NOTE | 2021-02-11 14:11 | P.PN ---
Subjective Progress Note Date: 02/11/21 No new complaints today. Knee pain is improving. Erythema improving. Micro with no growth. Objective - Vital Signs Vital signs: Vital Signs Temp 98.6 F 02/11/21 07:00 Pulse 80 02/11/21 07:00 Resp 17 02/11/21 07:00 BP 98/62 02/11/21 07:00 Pulse Ox 93 L 02/11/21 07:00 Intake & Output 02/10/21 02/11/21 02/11/21 18:59 06:59 18:59 Intake Total 964.667 250 600 Output Total 250 500 350 Balance 714.667 -250 250 Intake: Intake, IV Titration 164.667 250 Amount Heparin Sod,Pork in 0.45% 164.667 250 NaCl 25,000 unit In 0.45 % NaCl 1 250ml.bag @ 9. 186 UNITS/KG/HR 10 mls/hr IV .Q24H [facility] Rx#: [id number] Oral 800 600 Output: Urine 250 500 350 Other: # Voids 1 1 1 - Exam Gen: awake, alert HEENT: normocephalic, atraumatic, good hearing acuity, moist mucous membranes Resp: good air exchange, breathing comfortably with no accessory muscle use CVS: good distal perfusion x 4, GI: soft, NTTP, ND : no SPT, no CVAT, garcia catheter not present MSK: no pitting edema, no clubbing, right knee with swelling and surrounding erythema Neuro: non-focal, moving all extremities Psych: cooperative, euthymic mood - Labs CBC & Chem 7: 02/11/21 08:34 02/11/21 03:00 Labs: Abnormal Lab Results - Last 24 Hours (Table) 02/10/21 02/11/21 02/11/21 Range/Units 17:59 03:00 03:00 WBC (3.8-10.6) k/uL Plt Count (150-450) k/uL Neutrophils # (1.3-7.7) k/uL ESR 21 H (0-15) mm/hr PT 12.5 H (9.0-12.0) sec INR 1.2 H (<1.2) APTT 36.4 H (22.0-30.0) sec C-Reactive Protein (<1.0) mg/dL 02/11/21 02/11/21 02/11/21 Range/Units 03:00 03:00 08:34 WBC (3.8-10.6) k/uL Plt Count (150-450) k/uL Neutrophils # (1.3-7.7) k/uL ESR (0-15) mm/hr PT (9.0-12.0) sec INR (<1.2) APTT 43.1 H 46.6 H (22.0-30.0) sec C-Reactive Protein 11.7 H (<1.0) mg/dL 02/11/21 Range/Units 08:34 WBC 11.1 H (3.8-10.6) k/uL Plt Count 132 L (150-450) k/uL Neutrophils # 8.6 H (1.3-7.7) k/uL ESR (0-15) mm/hr PT (9.0-12.0) sec INR (<1.2) APTT (22.0-30.0) sec C-Reactive Protein (<1.0) mg/dL Microbiology - Last 24 Hours (Table) 02/09/21 06:45 Blood Culture - Preliminary Blood No Growth after 48 hours 02/09/21 06:55 Blood Culture - Preliminary Blood No Growth after 48 hours Assessment and Plan Assessment: Right knee cellulitis Hemarthrosis -Leukocytosis with WBC 19.8 and elevated CRP of 6.6 -IV antibiotics: Vancomycin and Unasyn -Blood cultures and joint aspiration/synovial fluid cultures obtained -Hematology following for coumadin/heparin management -Consult orthopedic surgery and infectious disease. -Repeat daily CBC, CRP, and obtain a uric acid level. -Symptomatic care and pain management. 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 Hyperbilirubinemia -Patient denies any GI complaints. -Nonicteric -Will repeat liver profile with a.m. labs The patient is admitted with an anticipated greater than 2 midnight stay for evaluation of cellulitis right knee Surrogate decision-maker: CODE STATUS: Full code DVT prophylaxis: Coumadin, pharmacy to dose Discussed with: Patient and RN Anticipated discharge date: Clinical course to determine Anticipated discharge place: Home
[2021-02-11] MEDS: SODIUM CHLORIDE 0.9% 1,000 ML IV SCH (19:33)
--- NOTE | 2021-02-11 19:52 | PN ---
PROGRESS NOTE DATE OF SERVICE: 02/11/2021 REASON FOR FOLLOWUP: 1. Right knee cellulitis and concern for prepatellar bursitis. 2. Drug rash. INTERVAL HISTORY: Patient is currently afebrile. The patient is breathing comfortably. Overall pain and discomfort to the right knee and leg has decreased. The patient denies having any chest pain. No shortness of breath or cough. No abdominal pain. No diarrhea. PHYSICAL EXAMINATION: Blood pressure 115/72 with a pulse of 80, temperature 98.2. He is 96% on room air. General description is a middle-aged male lying in bed in no distress. Respiratory system: Unlabored breathing. Clear to auscultation anteriorly. Heart S1, S2. Regular rate and rhythm. Abdomen soft, no tenderness. Right knee swelling has improved. LABS: Hemoglobin is 14, white count 11.1. INR is 1.2. Vancomycin trough 9.9. The culture is negative. DIAGNOSTIC IMPRESSION AND PLAN: 1. Patient with right knee cellulitis, concern for possible prepatellar bursitis. Overall improvement on vancomycin. Transition to a short course of oral doxycycline on discharge to finish therapy. 2. Patient with oral thrush. We will add nystatin swish and swallow. Questions and concerns were answered. MMODL / IJN: [id number] /
[2021-02-12] MEDS: VANCOMYCIN 1,750 MG in SODIUM CHLORIDE 0.9% 500 ML 500 ML IVPB SCH ×3 (01:09→20:15)
[2021-02-12] MEDS: SODIUM CHLORIDE 0.9% 1,000 ML IV SCH ×2 (04:42→15:15)
[2021-02-12] MEDS: CHOLECALCIFEROL 25 MCG (1000 IU) TABLET PO SCH (07:59)
[2021-02-12] MEDS: PANTOPRAZOLE 40 MG TABLET PO SCH (07:59)
[2021-02-12] MEDS: FOLIC ACID 1 MG TAB PO SCH (07:59)
[2021-02-12] MEDS: NYSTATIN 100,000 UNIT/ML SUSP 500,000 UNIT/5 ML CUP PO SCH ×3 (07:59→20:15)
[2021-02-12] MEDS ORDERED: VANCOMYCIN TROUGH DUE 1 EACH MISC MISCELLANE ONE (09:00)
--- NOTE | 2021-02-12 09:04 | P.PN ---
Subjective Progress Note Date: 02/12/21 Principal diagnosis: R knee cellulitis Pt s/e this AM he is doing well. States minimal to no pain in the knee however does state some increased swelling. Pt states he was ambulating all over the hallways yesterday and feels that it is swollen from this. Denies any f/c/sob/cp overnight. States no other issues. Objective - Vital Signs Vital signs: Vital Signs Temp 98.2 F 02/12/21 07:00 Pulse 73 02/12/21 07:00 Resp 16 02/12/21 07:00 BP 128/82 02/12/21 07:00 Pulse Ox 95 02/12/21 07:00 Intake & Output 02/11/21 02/12/21 02/12/21 18:59 06:59 18:59 Intake Total 600 Output Total 350 Balance 250 Intake: Oral 600 Output: Urine 350 Other: Voiding Method Toilet # Voids 1 1 - Exam Exam is stable. Pt ROM has improved. Erythema and cellulitis about the Lt knee. No drainage, flucctuence noted. Some anterior patellar bursal TTP. No TTP about the knee. Continued moderate 1- 2+ effusion. No pain with passive or active ROM of the knee. Stable to varus, valgus, ant, post drawr tests. No mcmurrays. 5/5 DF/PF/EHL/FHL. SILT L2-S1/ +DP/PT pulses compartments soft compressive. - Labs CBC & Chem 7: 02/11/21 08:34 02/11/21 03:00 Labs: Abnormal Lab Results - Last 24 Hours (Table) 02/11/21 02/11/21 Range/Units 08:34 08:34 WBC 11.1 H (3.8-10.6) k/uL Plt Count 132 L (150-450) k/uL Neutrophils # 8.6 H (1.3-7.7) k/uL APTT 46.6 H (22.0-30.0) sec Microbiology - Last 24 Hours (Table) 02/09/21 12:10 Anaerobic Culture - Preliminary Knee - Right 02/09/21 12:06 Gram Stain - Preliminary Knee - Right Body Fluid Culture - Preliminary Presumptive Staph aureus 02/09/21 06:45 Blood Culture - Preliminary Blood No Growth after 48 hours 02/09/21 06:55 Blood Culture - Preliminary Blood No Growth after 48 hours Assessment and Plan Assessment: 56 yo male Left knee pain Hemearthrosis, supratherapeutic INR POA Cellulitis LLE Patella bursitis Plan: Spoke with patient and reviewed labs. Unfortunately, one of his cultures turned positive today prelim of Staph A. The remaining two cultures still have no growth at 48 hrs. I discussed with the patient at length that this could be contaminant, however I do not know if I can assume this and It would be better for us to wash him out. At this point he has been on ABX, clinically he is improving however with this culture showing possible staff, I feel it is better to wash out knowing the risks of leaving it to be higher than to wash out. He agrees. We will keep him NPO and plan on washout today ethan. Orthopedic Surgery Risk Review Kevin Solorio is a 56 yo male presenting for evaluation of sudden onset right knee pain, inability to ambulate after kneeling and treadmill walk. It was my pleasure to have seen and examined Kevin Solorio. In our visit today we have had a chance to go over subjective complaints, physical examination findings and treatments including the natural course history without intervention and various interventional options. His imaging demonstrates no acute fractures dislocations only soft tissue swelling and joint effusion. On physical exam, Kevin Solorio demonstrates pain with motion of R knee, which is improved dramatically and , which is NV intact at this time. I have explained to the patient that this fracture needs stabilization. Based on the patients imaging, physical exam, and the rapid progression and disabling nature of her symptoms, at this time I recommend surgery in the form or a: arthroscopic irrigation and debridment I discussed the risk and benefits of this procedure at length with Kevin Solorio. Questions were invited and answered, and the patient wishes to proceed as outlined below. Currently, I am recommendin. Right knee arthroscopic irrigation and debridement 2. Review of surgical risks and benefits as well as an educational packet on the proposed surgical procedure. Risks: All surgical procedures come with inherent risks, including those related to positioning, anesthesia, intraoperative findings, and postoperative complications. It is important to understand that surgery does not come with any guarantee of a successful outcome as complications and adverse events are always possible. The patient was given a handout discussing the surgical procedure and risks associated with the intervention, both of which were discussed with the patient. These risks include but are not limited to the following: - Experiencing same, different or even worse symptoms compared to before surgery. - Requiring further surgery or other forms of treatment presently or at some time in the future . - On an extreme but fortunately relatively rare basis severe complication such as blindness, stroke, heart attack, temporary and/or permanent nerve injury, paralysis, coma, or may occur, sometimes without known explanatio n. - Surgical complications may include but are not limited to risk of infection, fluid accumulation in the surgical dissection site, including a seroma or hematoma, that requires additional surgery, wound drainage, bleeding, new numbness or weakness, vision changes/loss, spinal fluid leakage, non-healing and/or infected incision, headaches, difficulty or inability to swallow, hoarseness, hemopneumothorax, pneumothorax, injury to nerves, spinal cord, blood vessels, lymphatics or other vital organs (i.e., bowel injury, injury to the great vessels); heterotopic bone formation; complications related to the hardware such as screws, rods, including misplaced hardware, device failure, hardware fracture/breakage, or hardware loosening; retained surgical instrumentations or devices and the need for further surgery. - Medical risks of the planned surgery include but are not limited to generalized Infections to the whole body or local areas outside of the surgical site (sepsis), heart attack, bleeding, anaphylaxis, meningitis, seizure, epilepsy, hearing loss, burn mo, laceration of the head or other areas of the body, bruising, hypersensitivity of the skin, bladder over distension; allergic reaction; shoulder injury related to positioning; fat, blood and air clots to other areas of the body like heart, lungs, brain; failure of internal organs such as lungs, kidneys, liver and excessive bleeding. If blood transfusions are necessary, note that transfusions may cause intolerance reactions such as anaphylaxis or other complex reactions. Despite best efforts, the results of surgery might not heal in terms of bone, soft tissues such as skin, fascia, ligaments, and joints. [facility] is an educational center that serves as a training facility for physician assistants, nurses, orthopedic residents and fellows. Residents are physicians who are completing their surgical intensive training following medical school. They assist in the operating room with direct supervision of the attending surgeons. [place] are surgeons who have completed their training and eligible for board certification. They have opted for an elective year of more specialized training in their field. They assist in the operating room under the supervision of the attending surgeons. Physician assistants are medically trained surgical providers who function in the outpatient, inpatient, and operating room setting under the direct supervision of the attending richa mcgrath. [facility] has multiple operating rooms with single and overlapping rooms running daily. They currently function under the required guidelines as produced by the [facility] Finance Committee with regards to the overlapping rooms and will continue to comply with changes to this policy as they occur. The requirements include and are complied with as follows: (1) the critical portions of the overlapping rooms will not occur at the same time, (2) the attending physician will be physically present during the critical portions of the procedure and immediately available during the entire case, and (3) a back-up attending is designated should the primary attending not be immediately available. The patient has had a chance to review all the listed information, has been given print outs detailing this information, and has had all his/her questions answered to their satisfaction. It was my pleasure to have seen and examined Kevin Solorio. In our visit today we have had a chance to go over my understanding of our patient's current condition, the natural course history without intervention and various interventional options. Questions were invited and answered, and the patient wishes to proceed as outlined above. I have seen and examined the patient for 25 minutes and we have spent more than 50% of the time in repeat and detailed counseling about the patient's condition, its natural course history with out and as much as can be predicted with surgery and re-review of various surgical treatment options. In conclusion, Kevin Solorio requested we proceed with the above suggested surgery and are willing to accept risks and limitations of the suggested surgery as nature of the disease process and our best attempts at treatment for the condition. Thank you again for allowing us to be part of your patient's care. Please don't hesitate to contact me if you have any further questions. Signed and authenticated by: Miquel Dorado DO [facility] [address] [address]
[2021-02-12 09:19] LABS: African American GFR (CKD) >90 (>60 ml/min/1.73 sqM); Non-African American GFR(CKD) >90 (>60 ml/min/1.73 sqM)
--- NOTE | 2021-02-12 13:59 | P.PN ---
Subjective Progress Note Date: 02/12/21 Principal diagnosis: hypercoaguable state, needing procedures In f/u pt awaiting Orthopedic procedures on right knee for septic joint. He is on heparin drip, no bleeding to report. Objective - Vital Signs Vital signs: Vital Signs Temp 98.2 F 02/12/21 07:00 Pulse 73 02/12/21 07:00 Resp 16 02/12/21 07:00 BP 128/82 02/12/21 07:00 Pulse Ox 95 02/12/21 07:00 Intake & Output 02/11/21 02/12/21 02/12/21 18:59 06:59 18:59 Intake Total 600 376.478 Output Total 350 Balance 250 376.478 Intake: Intake, IV Titration 176.478 Amount Heparin Sod,Pork in 0.45% 176.478 NaCl 25,000 unit In 0.45 % NaCl 1 250ml.bag @ 9. 186 UNITS/KG/HR 10 mls/hr IV .Q24H MUKUL Rx#: [id number] Oral 600 200 Output: Urine 350 Other: Voiding Method Toilet # Voids 1 1 - Constitutional General appearance: Present: average body habitus, cooperative, no acute di stress - EENT Eyes: Present: anicteric sclerae, EOMI ENT: Present: hearing grossly normal, thrush - Respiratory Respiratory: bilateral: CTA - Cardiovascular Heart sounds: normal: S1, S2 Abnormal Heart Sounds: Absent: systolic murmur, diastolic murmur, rub, S3 Gallop, S4 Gallop, click, other - Peripheral edema foot Peripheral Edema: bilateral: None - Gastrointestinal General gastrointestinal: Present: normal bowel sounds, soft - Neurologic Neurologic: Present: CNII-XII intact - Musculoskeletal Musculoskeletal Comment(s): right knee swelling, redness - Psychiatric Psychiatric: Present: A&O x's 3, appropriate affect, intact judgment & insight - Labs CBC & Chem 7: 02/11/21 08:34 02/12/21 08:35 Labs: Abnormal Lab Results - Last 24 Hours (Table) 02/12/21 Range/Units 08:35 APTT 41.1 H (22.0-30.0) sec Microbiology - Last 24 Hours (Table) 02/09/21 06:55 Blood Culture - Preliminary Blood No Growth after 72 hours 02/09/21 06:45 Blood Culture - Preliminary Blood No Growth after 72 hours 02/09/21 12:10 Anaerobic Culture - Preliminary Knee - Right 02/09/21 12:06 Gram Stain - Preliminary Knee - Right Body Fluid Culture - Preliminary Presumptive Staph aureus Assessment and Plan (1) Hypercoagulable state Narrative/Plan: For procedure heparin drip started when INR was <2. Hold heparin per Ortho specifications. Resume heparin post op once Surgeon feels hemostasis has been achieved. Begin coumadin. If pt ready for discharge then lovenox can be used for bridging. Case discussed with Infectious Disease. Pt has severe thrush and is going to be treated with IV antibiotics. Recommend twice a week INR monitoring as both will cause elevated INR. Once abx and antifungal treatments complete coumadin will be adjusted accordingly. Pt verbalized understanding plan. Current Visit: Yes Status: Chronic Priority: High Code(s): D68.59 - OTHER PRIMARY THROMBOPHILIA SNOMED Code(s): 60607325
--- NOTE | 2021-02-12 14:41 | P.PN ---
Subjective Progress Note Date: 02/12/21 Pt growing presumptive staph aureus on knee culture. Ortho notified, plan for washout today. On heparin gtt, needs to be stopped 4 hours before procedure, and started 2 hours after procedure provided no bleeding complications. Objective - Vital Signs Vital signs: Vital Signs Temp 98.2 F 02/12/21 07:00 Pulse 73 02/12/21 07:00 Resp 16 02/12/21 07:00 BP 128/82 02/12/21 07:00 Pulse Ox 95 02/12/21 07:00 Intake & Output 02/11/21 02/12/21 02/12/21 18:59 06:59 18:59 Intake Total 600 376.478 Output Total 350 Balance 250 376.478 Intake: Intake, IV Titration 176.478 Amount Heparin Sod,Pork in 0.45% 176.478 NaCl 25,000 unit In 0.45 % NaCl 1 250ml.bag @ 9. 186 UNITS/KG/HR 10 mls/hr IV .Q24H MUKUL Rx#: [id number] Oral 600 200 Output: Urine 350 Other: Voiding Method Toilet # Voids 1 1 - Exam Gen: awake, alert HEENT: normocephalic, atraumatic, good hearing acuity, moist mucous membranes Resp: good air exchange, breathing comfortably with no accessory muscle use CVS: good distal perfusion x 4, GI: soft, NTTP, ND : no SPT, no CVAT, garcia catheter not present MSK: no pitting edema, no clubbing, right knee with swelling and surrounding erythema Neuro: non-focal, moving all extremities Psych: cooperative, euthymic mood - Labs CBC & Chem 7: 02/11/21 08:34 02/12/21 08:35 Labs: Abnormal Lab Results - Last 24 Hours (Table) 02/12/21 Range/Units 08:35 APTT 41.1 H (22.0-30.0) sec Microbiology - Last 24 Hours (Table) 02/09/21 06:55 Blood Culture - Preliminary Blood No Growth after 72 hours 02/09/21 06:45 Blood Culture - Preliminary Blood No Growth after 72 hours 02/09/21 12:10 Anaerobic Culture - Preliminary Knee - Right 02/09/21 12:06 Gram Stain - Preliminary Knee - Right Body Fluid Culture - Preliminary Presumptive Staph aureus Assessment and Plan Assessment: Right knee cellulitis Septic Arthritis -Leukocytosis with WBC 19.8 and elevated CRP of 6.6 -IV antibiotics: Vancomycin and Unasyn -Blood cultures and joint aspiration/synovial fluid cultures = presumptive staph -Hematology following for coumadin/heparin management -Consult orthopedic surgery and infectious disease. OR washout on 02/12 -Repeat daily CBC, CRP, and obtain a uric acid level. -Symptomatic care and pain management. 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 Hyperbilirubinemia -Patient denies any GI complaints. -Nonicteric -Will repeat liver profile with a.m. labs The patient is admitted with an anticipated greater than 2 midnight stay for evaluation of cellulitis right knee Surrogate decision-maker: CODE STATUS: Full code DVT prophylaxis: Coumadin, pharmacy to dose Discussed with: Patient and RN Anticipated discharge date: Clinical course to determine Anticipated discharge place: Home
[2021-02-12] MEDS ORDERED: IV FLUID CONTINUATION 1,000 ML IV ONE (15:37)
[2021-02-12] MEDS ORDERED: ONDANSETRON 4 MG/2 ML VIAL IVP ONE (15:47)
[2021-02-12] MEDS ORDERED: DEXAMETHASONE SOD PHOSPHATE 4 MG/ML 1 ML VIAL IVP ONE (15:48)
[2021-02-12] MEDS ORDERED: PROPOFOL 10 MG/ML 20 ML VIAL IV ONE (16:31)
[2021-02-12] MEDS ORDERED: NEOSTIGMINE 1 MG/ML 10 ML VIAL ONE (16:31)
[2021-02-12] MEDS ORDERED: MIDAZOLAM 2 MG/2 ML VIAL ONE (16:31)
[2021-02-12] MEDS ORDERED: ROCURONIUM 10 MG/ML (5 ML VIAL) IV ONE (16:31)
[2021-02-12] MEDS ORDERED: ePHEDrine SULFATE/0.9% NACL/PF 50 MG/5 ML SYRINGE IV ONE (16:31)
[2021-02-12] MEDS ORDERED: HYDROmorphone (PF) 1 MG/ML ONE (16:31)
[2021-02-12] MEDS ORDERED: GLYCOPYRROLATE 0.2 MG/ML 2 ML VIAL ONE (16:31)
[2021-02-12] MEDS ORDERED: SUCCINYLCHOLINE CHLORIDE 100 MG/5 ML SYR IV ONE (16:31)
[2021-02-12] MEDS ORDERED: KETAMINE 10 MG/ML 20 ML VIAL ONE (16:31)
[2021-02-12] MEDS ORDERED: fentaNYL (PF) 50 MCG/ML 2 ML AMP ONE (16:31)
[2021-02-12] MEDS ORDERED: LIDOCAINE 1% INJ 10MG/ML (20 ML MDV) ONE (16:31)
[2021-02-12] MEDS ORDERED: ceFAZolin 3,000 MG in SODIUM CHLORIDE 0.9% IRRIGATIO 3,000 ML IRRIGATION ONE (16:53)
[2021-02-12] MEDS ORDERED: BUPIVACAINE (PF) 0.5% 30 ML VIAL INTRAARTIC ONE (17:40)
[2021-02-12] MEDS ORDERED: NALOXONE 0.4 MG/ML 1 ML VIAL IV PRN (17:56)
[2021-02-12] MEDS ORDERED: HYDROcodone/APAP 5-325MG 1 EACH TAB PO PRN (17:56)
--- NOTE | 2021-02-12 18:23 | P.OP ---
Date of Procedure: 02/12/21 Preoperative Diagnosis: 1. Rt knee hemarthrosis 2. Rt knee possible septic arthritis 3. RLE cellulitis 4. 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 Rt knee hemarthrosis 2. RLE cellulitis 3. 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 Rt knee arthroscopic irrigation and debridment 2. Arthroscopic Synovectomy minor Rt knee Implants: None Anesthesia: GETA Surgeon: Miquel Dorado Electrical Technician #1: Jake Mckeon (was present for the entire case and necessary due to the complexity of the case) Estimated Blood Loss (ml): 10 IV fluids (ml): 1,000 Urine output (ml): 0 Pathology: none sent Condition: stable Disposition: PACU Indications for Procedure: 56 yo male presented with a complex history related to his knee as well as his medical status. Pt has a clotting disorder requiring him to be on coumadin. 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 He presented with c/o RLE pain, redness, swelling as well as knee pain and effusion. He stated that he was doing treadmill work out and that a day or so before he was kneeling a lot doing work. After the treadmill workout he was OK, but soon after he began to have severe pain in his knee and effusion. He was seen by his PCP who started him on abx due to the redness that had developed after the work he was doing on his knees before this. However, the pain became so bad that he come to ED for evaluation. Pt was evaluated and at the time due to his elevated Sed, CRP, WBC it was elected to aspirate his knee and send for analysis. Aspiration was grossly bloody and cell counts showed >150k RBC, 16K Nucleated cells with 90% PMN. Pt was also on ABx for the cellulitis of his RLE. The synovial fluid was sent for cultures. He was seen by ID as well as medicine. Hemarthrosis of the knee with overlying cellulitis was favored diagnosis with pending knee cultures. He continued to improve clinically over the next 2 days with abx. The cellulitis was getting better. His knee became essentially normal with only a continued small effusion. Today, upon evaluation he continued to improve however he stated he walked more yesterday and his knee felt more swollen. Upon review of the initial cultures, one set turned positive for Staph. It was at this time I spoke with the patient at length. I do think that this was a contaminant as the other two culture sets had been negative, however I cannot know for sure. Due to continued effusion and pain I discussed with him and recommended arthroscopic I&D. I discussed risks and benefits at length as outlined in risk review. After talking though with patient as well as his primary team, pt elected for arthroscopic I&D of the Rt knee. We proceeded with this KATI. Operative Findings: Hemearthrosis Rt knee No purulence Synovitis Plical bands Medial and lateral Normal ACL, PCL Minor degenerative changes medial and lateral menisci Minor chondromalacia PF and Medial joints. Description of Procedure: The patient was seen and examined in the preoperative area. All preoperative protocols were followed. Informed consent was obtained risks and benefits of the procedure were discussed at length. Risks including bleeding infection damage to the surrounding tissue and risk of reoperation were discussed with the patient. Risk of anesthesia up to and including was a discussed with the patient. These are outlined in the risk reviewed. They were willing to accept these risks and all of the risks of surgery. The patient was given a weight- based dose of antibiotics in the form of continued vancomycin from the floor. The patient was seen and evaluated by the anesthesia team who deemed them fit for surgery. The site was marked, the patient was willing to proceed with the procedure. The patient was transferred to the operative suite by the Department of anesthesia. There were then drifted off to sleep by the department of anesthesia and GETA anesthesia was used. Once adequate anesthesia had been obtained the patient was carefully transferred to the operative bed. All bony prominences were padded accordingly. SCDs were placed on the nonoperative lower extremities. Arms were well padded. The patient's right leg was then assessed he was stable through range of motion. Tourniquet was placed around the patient's right upper thigh patient's right leg was then placed in arthroscopic leg mejia and well-padded. The nylon operative leg was placed on a padded and secured to the table. The foot of the bed was then dropped. Preoperative briefing was done with the operative team and everyone was ready for the procedure to start. The patients right leg was then prepped and draped in the normal sterile fashion. Timeout was then performed and all parties in agreement with the procedure to be performed. Lateral portal incision was made in a standard fashion. Arthroscopic trocar blunt was inserted followed by the arthroscopic camera. Diagnostic arthroscopy ensued a large amount of bloody fluid was evacuated from the knee with the trocar placement. There is no purulence seen. Upon diagnostic arthroscopy there was synovitis throughout the knee with medial and lateral plical bands. There was grade 1-2 chondromalacia the patellofemoral joint grade 1 chondral malacia of the medial femoral condyle and medial tibial plateau with minor degenerative changes to the menisci in the medial and lateral compartments. ACL and PCL were completely intact. Again there is no purulence seen there is bloody fluid throughout. On the medial side then a second portal was made in the standard fashion the probe was inserted the menisci were probed medially and laterally and were stable. Arthroscopic shaver was then placed and minor synovectomy was performed ArthroCare wand was used to cauterize any bleeding tissue. The plical bands were partially resected to allow for visualization. We then proceeded with arthroscopic lavage running 12 L of fluid through the knee. The first 3 L of antibiotic irrigation followed by normal sterile saline after this. Once irrigation was complete we once again take a look around the knee again no purulence is seen any bleeders were cauterized using the ArthroCare wand. And the scope was removed and the remaining fluid was evacuated from the knee mixture of cortical percent Marcaine without epinephrine was then injected into the knee. Portals were loosely closed with 3-0 nylon in simple fashion. The leg was then cleaned the wounds cleaned and sterilely dressed with Adaptic 4 x 4's ABDs and web roll. A 4 inch double Rogelio was then placed around the patient's entire leg to help with swelling. The patient was then transferred back to their hospital bed. There were awakened by department of anesthesia having tolerated the procedure very well with no complications. The patient was then transported to the postoperative care unit in stable condition.
[2021-02-12] MEDS: SENNOSIDES-DOCUSATE SODIUM 1 EACH TAB PO SCH (20:15)
[2021-02-12] MEDS: HEPARIN SODIUM 1,000 UN/ML (10ML VL) IV PRN (21:27)
[2021-02-12] MEDS: HEPARIN SOD,PORK IN 0.45% NACL 25,000 UNIT in 0.45% NACL 1 250ML.BAG IV SCH (21:33)
[2021-02-13] MEDS: NYSTATIN 100,000 UNIT/ML SUSP 500,000 UNIT/5 ML CUP PO SCH ×5 (00:05→20:42)
[2021-02-13] MEDS: SODIUM CHLORIDE 0.9% 1,000 ML IV SCH ×3 (00:06→20:34)
[2021-02-13] MEDS: VANCOMYCIN 1,750 MG in SODIUM CHLORIDE 0.9% 500 ML 500 ML IVPB SCH ×2 (02:07→09:31)
[2021-02-13 04:58] LABS: Basophils % (A) 0 %; Eosinophils % (A) 0 %; HCT 41.2 % (39.0-53.0); HGB 13.5 gm/dL (13.0-17.5); Lymphocytes # (A) 1.1 k/uL (1.0-4.8); Lymphocytes % (A) 11 %; MCH 30.1 pg (25.0-35.0); MCHC 32.9 g/dL (31.0-37.0); MCV 91.6 fL (80.0-100.0); Mean Platelet Volume 8.4; Monocytes # (A) 0.5 k/uL (0-1.0); Monocytes % (A) 5 %; Neutrophils # (A) 7.5 k/uL (1.3-7.7); Neutrophils % (A) 81 %; Platelet Count 173 k/uL (150-450); RDW 12.5 % (11.5-15.5); WBC 9.3 k/uL (3.8-10.6)
[2021-02-13] MEDS: CHOLECALCIFEROL 25 MCG (1000 IU) TABLET PO SCH (07:23)
[2021-02-13] MEDS: PANTOPRAZOLE 40 MG TABLET PO SCH (07:23)
[2021-02-13] MEDS: FOLIC ACID 1 MG TAB PO SCH (07:23)
--- NOTE | 2021-02-13 08:12 | P.PN ---
Subjective Progress Note Date: 02/13/21 Principal diagnosis: 1. Rt knee hemarthrosis 2. RLE cellulitis 3. 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 Patient was lying semirecumbent in bed. Patient says he is feeling much better since surgery and says he has been walking all night. He thinks he is improving very well. Patient says he would like to go home today if possible. Patient denies chest pain, fever, shortness breath, nausea, vomiting, change in vision, loss of bowel/bladder control, numbness/tingling. Objective - Vital Signs Vital signs: Vital Signs Temp 97.7 F 02/13/21 07:49 Pulse 62 02/13/21 07:49 Resp 16 02/13/21 07:49 BP 113/72 02/13/21 07:49 Pulse Ox 96 02/13/21 07:49 Intake & Output 02/12/21 02/13/21 02/13/21 18:59 06:59 18:59 Intake Total 477.478 73.522 Balance 477.478 73.522 Weight 108.862 kg Intake: IV 101 Intake, IV Titration 176.478 73.522 Amount Heparin Sod,Pork in 0.45% 176.478 73.522 NaCl 25,000 unit In 0.45 % NaCl 1 250ml.bag @ 9. 186 UNITS/KG/HR 10 mls/hr IV .Q24H [facility] Rx#: [id number] Oral 200 Other: Voiding Method Toilet # Voids 1 1 1 - Exam Right knee: Inspection: Right knee is wrapped in keith bandage and dressings Palpation: Mild TTP over puncture site just distal to patella. rest of exam NTTP. Sensation: sensation is intact, symmetric equal bilateral legs. ROM: -Patient is able to flex and extend knee without pain. Neurovascular- DP present, intact, 2+. cap refill < 3 seconds in big toe right foot. - Labs CBC & Chem 7: 02/13/21 04:25 02/12/21 08:35 Labs: Abnormal Lab Results - Last 24 Hours (Table) 02/12/21 02/12/21 02/13/21 Range/Units 08:35 19:16 04:25 APTT 41.1 H 21.6 L 50.5 H (22.0-30.0) sec Microbiology - Last 24 Hours (Table) 02/09/21 12:06 Gram Stain - Final Knee - Right Body Fluid Culture - Final Staphylococcus aureus 02/09/21 06:55 Blood Culture - Preliminary Blood No Growth after 72 hours 02/09/21 06:45 Blood Culture - Preliminary Blood No Growth after 72 hours Assessment and Plan Assessment: 1. Rt knee hemarthrosis 2. RLE cellulitis 3. 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 Patient stable at bedisde this morning. Patient orthopedically stable for discharge home today. Will discuss antibiotic intervention with medicine and ID 2. Appreciate medical and Infectious disease management 3. Pain Management - [place] 4. DVT ppx - heparin 5. GI ppx - docusate Time with Patient: Less than 30
--- NOTE | 2021-02-13 08:46 | P.PN ---
Progress Note - Text Progress Note Date: 02/13/21 Patient seen and examined I agree with the note of AYSHA Estrada Patient is doing well this morning states his knee feels much better. He has been up and walking the halls he states he was walking all night and he has no issues. The wrap and dressing is clean and dry and still intact. He has good dorsal flexion plantar flexion EHL FHL sensation is intact L2 S1 palpable distal pulses compartments soft and compressible at this time. From an orthopedic standpoint he is stable for discharge. We will discuss with primary team as well as infectious disease for antibiotic protocol IV versus oral. I would favor a short course of IV outpatient followed by oral medications simply to cover the patient. I do feel that this was still a hematoma, as in surgery when we entered the knee for the arthroscopy a large amount of bloody return was seen with no purulence, in nature and that the positive culture was a contaminant. However as this is difficult to determine I would favor treatment anyways since he has a cellulitis that has not resolved yet. Cellulitis is much better however it is not completely gone. Again he is orthopedically stable and can be discharged when medically stable and antibiotics determined.
[2021-02-13] MEDS: HEPARIN SOD,PORK IN 0.45% NACL 25,000 UNIT in 0.45% NACL 1 250ML.BAG IV SCH (09:31)
--- NOTE | 2021-02-13 09:41 | PN ---
PROGRESS NOTE DATE OF SERVICE: 02/12/2021 REASON FOR FOLLOWUP: Right knee septic arthritis. INTERVAL HISTORY: Patient is afebrile. The patient is breathing comfortably. The patient's right knee swelling and redness has slightly decreased. The patient denies any chest pain, shortness of breath, or cough. No abdominal pain or diarrhea. PHYSICAL EXAMINATION: Blood pressure is 118/77, pulse of 83, temperature 98.3. He is 98% on room air. General description is a middle-aged male lying in bed in no distress. Respiratory system: Unlabored breathing. Clear to auscultation anteriorly. Heart S1, S2. Regular rate and rhythm. Abdomen soft, no tenderness. Right knee swelling and redness has slightly decreased. No drainage. The patient did have evidence of thrush. LABS: Hemoglobin is 14.3, white count 11.1, creatinine 0.87. Vancomycin trough 13.8. DIAGNOSTIC IMPRESSION AND PLAN: 1. Patient with right knee septic arthritis with culture showing MSSA. Patient did have a drug rash with Unasyn, though risk of rash with Keflex however may have a therapeutic vancomycin and that will be transitioned to cefazolin 2 grams q.8 hours and we will monitor closely. Waiting for the knee washout. The patient will likely need a PICC line for outpatient IV antibiotics. This was discussed with the patient. He had multiple questions. Those were answered. 2. Oral thrush. Nystatin swish and swallow twice a day for 7 days. MMODL / IJN: [id number] /
[2021-02-13] MEDS: ITRACONAZOLE ORAL SUSP 1,500 MG/150 ML BOTTLE PO SCH ×2 (13:43→20:42)
--- NOTE | 2021-02-13 14:24 | P.PN ---
Subjective Progress Note Date: 02/13/21 Principal diagnosis: hypercoaguable state, needing procedures patient is status post orthopedic procedure, he states the pain and swelling is already better in his right knee. The dressing has not been removed yet today but, no unusual bruising above or below the bandages noted. Patient denies any other bleeding. Hemoglobin is stable. He is on heparin drip. Objective - Vital Signs Vital signs: Vital Signs Temp 97.7 F 02/13/21 07:49 Pulse 62 02/13/21 07:49 Resp 16 02/13/21 07:49 BP 113/72 02/13/21 07:49 Pulse Ox 96 02/13/21 07:49 Intake & Output 02/12/21 02/13/21 02/13/21 18:59 06:59 18:59 Intake Total 477.478 73.522 200 Balance 477.478 73.522 200 Weight 108.862 kg Intake: IV 101 Intake, IV Titration 176.478 73.522 Amount Heparin Sod,Pork in 0.45% 176.478 73.522 NaCl 25,000 unit In 0.45 % NaCl 1 250ml.bag @ 9. 186 UNITS/KG/HR 10 mls/hr IV .Q24H [facility] Rx#: [id number] Oral 200 200 Other: Voiding Method Toilet # Voids 1 1 1 - Constitutional General appearance: Present: average body habitus, cooperative, no acute distress - EENT Eyes: Present: anicteric sclerae, edentulous ENT: Present: hearing grossly normal - Respiratory Details: respirations even and unlabored - Cardiovascular Details: skin warm and dry to the touch, no cyanosis of the toes - Neurologic Neurologic: Present: CNII-XII intact - Musculoskeletal Musculoskeletal: Present: strength equal bilaterally - Psychiatric Psychiatric: Present: A&O x's 3, appropriate affect, intact judgment & insight - Labs CBC & Chem 7: 02/13/21 04:25 02/12/21 08:35 Labs: Abnormal Lab Results - Last 24 Hours (Table) 02/12/21 02/13/21 Range/Units 19:16 04:25 APTT 21.6 L 50.5 H (22.0-30.0) sec Microbiology - Last 24 Hours (Table) 02/09/21 06:45 Blood Culture - Preliminary Blood No Growth after 96 hours 02/09/21 06:55 Blood Culture - Preliminary Blood No Growth after 96 hours 02/09/21 12:06 Gram Stain - Final Knee - Right Body Fluid Culture - Final Staphylococcus aureus Assessment and Plan (1) Hypercoagulable state Narrative/Plan: heparin resumed postop, no evidence of bleeding at this time, hemoglobin stable. Pending PICC line insertion for prolonged duration of IV antibiotics. Continue heparin drip until PICC line inserted. Once all procedures are complete, discontinue heparin drip. 4 hours later first dose of Lovenox, therapeutic dose, begin Coumadin at previous dosing same evening. Patient is asked for Lovenox to be sent to [place], we will send this for him but, patient follows with a [employer] Admissions [employer] [place] of here here so, recommended that patient get his INR tested and his Coumadin adjusted by that Physician. Patient is very well aware that antibiotics and antifungal's can cause extreme lability in INR. Recommend INR twice a week until completion of antibiotics and antifungal treatment. Current Visit: Yes Status: Chronic Priority: High Code(s): D68.59 - OTHER PRIMARY THROMBOPHILIA SNOMED Code(s): 73217804
--- NOTE | 2021-02-13 14:25 | P.PN ---
Subjective Progress Note Date: 02/13/21 Pt is doing well s/p washout yesterday. Plan is to treat him with 4 weeks of IV abx. Objective - Vital Signs Vital signs: Vital Signs Temp 97.7 F 02/13/21 07:49 Pulse 62 02/13/21 07:49 Resp 16 02/13/21 07:49 BP 113/72 02/13/21 07:49 Pulse Ox 96 02/13/21 07:49 Intake & Output 02/12/21 02/13/21 02/13/21 18:59 06:59 18:59 Intake Total 477.478 73.522 200 Balance 477.478 73.522 200 Weight 108.862 kg Intake: IV 101 Intake, IV Titration 176.478 73.522 Amount Heparin Sod,Pork in 0.45% 176.478 73.522 NaCl 25,000 unit In 0.45 % NaCl 1 250ml.bag @ 9. 186 UNITS/KG/HR 10 mls/hr IV .Q24H [facility] Rx#: [id number] Oral 200 200 Other: Voiding Method Toilet # Voids 1 1 1 - Exam Gen: awake, alert HEENT: normocephalic, atraumatic, good hearing acuity, moist mucous membranes Resp: good air exchange, breathing comfortably with no accessory muscle use CVS: good distal perfusion x 4, GI: soft, NTTP, ND : no SPT, no CVAT, garcia catheter not present MSK: no pitting edema, no clubbing, right knee with swelling and surrounding erythema Neuro: non-focal, moving all extremities Psych: cooperative, euthymic mood - Labs CBC & Chem 7: 02/13/21 04:25 02/12/21 08:35 Labs: Abnormal Lab Results - Last 24 Hours (Table) 02/12/21 02/13/21 Range/Units 19:16 04:25 APTT 21.6 L 50.5 H (22.0-30.0) sec Microbiology - Last 24 Hours (Table) 02/09/21 06:45 Blood Culture - Preliminary Blood No Growth after 96 hours 02/09/21 06:55 Blood Culture - Preliminary Blood No Growth after 96 hours 02/09/21 12:06 Gram Stain - Final Knee - Right Body Fluid Culture - Final Staphylococcus aureus Assessment and Plan Assessment: Right knee cellulitis Septic Arthritis -Leukocytosis with WBC 19.8 and elevated CRP of 6.6 -IV antibiotics: Vancomycin and Unasyn -Blood cultures and joint aspiration/synovial fluid cultures = MSSA -Hematology following for coumadin/heparin management -Consult orthopedic surgery and infectious disease. OR washout on 02/12 -PICC line pending 02/14, then discharge on home IV abx -ID and Heme to discuss need for fluconazole and its potentiation of warfarin to avoid supratherapeutic INR on discharge -Repeat daily CBC, CRP, and obtain a uric acid level. -Symptomatic care and pain management. 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 -Needs to bridged back to coumadin with lovenox injections Hyperbilirubinemia -Patient denies any GI complaints. -Nonicteric -Will repeat liver profile with a.m. labs The patient is admitted with an anticipated greater than 2 midnight stay for evaluation of cellulitis right knee Surrogate decision-maker: CODE STATUS: Full code DVT prophylaxis: Coumadin, pharmacy to dose Discussed with: Patient and RN Anticipated discharge date: Clinical course to determine Anticipated discharge place: Home
--- NOTE | 2021-02-13 14:36 | PN ---
PROGRESS NOTE DATE OF SERVICE: 02/13/2021 REASON FOR FOLLOWUP: Right knee septic arthritis MSSA. INTERVAL HISTORY: The patient is afebrile. The patient is currently breathing comfortably. The patient denies having any chest pain. No shortness of breath or cough. No abdominal pain or diarrhea. PHYSICAL EXAMINATION: Blood pressure 113/72 with a pulse of 60, temperature is 97.7. He is 96% on room air. General description is a middle-aged male lying in bed in no distress. Respiratory system: Unlabored breathing, clear to auscultation anteriorly. Heart S1, S2. Regular rate and rhythm. Abdomen soft. Right knee is currently dressed. No obvious drainage on the dressing. LABS: Hemoglobin 13.5, white count 9.3. DIAGNOSTIC IMPRESSION AND PLAN: 1. Patient with MSSA and right knee septic arthritis, status post washout. We will switch him over to cefazolin 2 grams q.8 hours. Plan for 4 weeks of antibiotics for which a PICC line will be placed. Discussed in detail with the patient. All questions were answered. 2. Oral thrush. Nystatin swish and swallow. Oral Diflucan. MMODL / IJN: [id number] /
[2021-02-13] MEDS: SENNOSIDES-DOCUSATE SODIUM 1 EACH TAB PO SCH (20:42)
[2021-02-14] MEDS: SODIUM CHLORIDE 0.9% 1,000 ML IV SCH (05:47)
[2021-02-14 07:50] VITALS: RESP 18; TEMP 98.8
--- NOTE | 2021-02-14 07:52 | P.PN ---
Subjective Progress Note Date: 02/14/21 Principal diagnosis: 1. Rt knee hemarthrosis 2. RLE cellulitis 3. 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 Patient was lying semirecumbent in bed. Patient says he is feeling much better since surgery and says he has been walking all night. He thinks he is improving very well. Patient says he would like to go home today if possible. Patient denies chest pain, fever, shortness breath, nausea, vomiting, change in vision, loss of bowel/bladder control, numbness/tingling. Objective - Vital Signs Vital signs: Vital Signs Temp 98.4 F 02/14/21 01:56 Pulse 61 02/14/21 01:56 Resp 16 02/14/21 01:56 BP 110/68 02/14/21 01:56 Pulse Ox 93 L 02/14/21 01:56 Intake & Output 02/13/21 02/14/21 02/14/21 18:59 06:59 18:59 Intake Total 800 250 Balance 800 250 Intake: Intake, IV Titration 250 Amount Heparin Sod,Pork in 0.45% 250 NaCl 25,000 unit In 0.45 % NaCl 1 250ml.bag @ 9. 186 UNITS/KG/HR 10 mls/hr IV .Q24H [facility] Rx#: [id number] Oral 800 Other: Voiding Method Toilet # Voids 1 2 - Exam Right knee: Inspection: Right knee has a few portal sites non draining. Mild swelling Palpation: NTTP throughout knee Sensation: sensation is intact, symmetric equal bilateral legs. ROM: -Patient is able to flex and extend knee without pain. Neurovascular- DP present, intact, 2+. cap refill < 3 seconds in big toe right foot. - Labs CBC & Chem 7: 02/13/21 04:25 02/12/21 08:35 Labs: Abnormal Lab Results - Last 24 Hours (Table) 02/14/21 Range/Units 05:02 APTT 75.8 H (22.0-30.0) sec Microbiology - Last 24 Hours (Table) 02/09/21 12:10 Anaerobic Culture - Preliminary Knee - Right 02/09/21 06:45 Blood Culture - Preliminary Blood No Growth after 96 hours 02/09/21 06:55 Blood Culture - Preliminary Blood No Growth after 96 hours Assessment and Plan Assessment: 1. Rt knee hemarthrosis 2. RLE cellulitis 3. 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 Patient stable at bedisde this morning. Patient orthopedically stable for discharge home today. Going home with Abx for 4 weeks 2. Appreciate medical and Infectious disease management 3. Pain Management - [place] 4. DVT ppx - heparin 5. GI ppx - docusate Time with Patient: Less than 30
[2021-02-14] MEDS: CHOLECALCIFEROL 25 MCG (1000 IU) TABLET PO SCH (08:38)
[2021-02-14] MEDS: FOLIC ACID 1 MG TAB PO SCH (08:38)
[2021-02-14] MEDS: PANTOPRAZOLE 40 MG TABLET PO SCH (08:38)
[2021-02-14] MEDS: ITRACONAZOLE ORAL SUSP 1,500 MG/150 ML BOTTLE PO SCH (08:39)
[2021-02-14] MEDS: NYSTATIN 100,000 UNIT/ML SUSP 500,000 UNIT/5 ML CUP PO SCH ×2 (08:39→13:12)
[2021-02-14] MEDS ORDERED: LIDOCAINE 1% INJ 10MG/ML (20 ML MDV) ONE (10:51)
[2021-02-14] MEDS ORDERED: LIDOCAINE 1% INJ 10MG/ML (20 ML MDV) SQ ONE (10:53)
--- NOTE | 2021-02-14 11:14 | IR ---
PICC LINE PLACEMENT: HISTORY: Infection requiring long-term antibiotic therapy PROCEDURE: Ultrasound and fluoroscopic guidance of PICC line placement. COMPLICATIONS: None ANESTHESIA: 1. 1% Lidocaine locally. FINDINGS/TECHNIQUE: The procedure was explained to the patient. The risks, complications, benefits and alternatives were discussed and any questions were answered. Informed consent was obtained. The patient was placed supine on the fluoroscopic table and prepped and draped in the usual sterile [facility] ion. Utilizing a 21 gauge needle and sonographic and fluoroscopic guidance, access in the vein was achieved and there is placement of a 0.018 guidewire. The vein is patent. A 4-F sheath was placed o mackenzie the guidewire. The guidewire and dilator were removed and a 4-F. PICC line was placed through th e sheath with the tip at the level of the SVC. The sheath was removed, the catheter was flushed and sutured into position. The patient was stable throughout the procedure and remained stable upon disc harge from the Department of Radiology. The vein puncture was patent under ultrasound. A toure scale image was obtained to document patency of the vein punctured. All elements of the maximal barrier technique were utilized. FLUOROSCOPY TIME: 0.5 minutes of fluoroscopy and one image submitted IMPRESSION: Successful PICC line placement under ultrasound and fluoroscopic guidance.
[2021-02-14] MEDS ORDERED: ENOXAPARIN 100 MG/ML SYRINGE SQ STA (11:37)
--- NOTE | 2021-02-14 11:40 | P.PN ---
Subjective Progress Note Date: 02/14/21 Principal diagnosis: hypercoaguable state, needing procedures Pt had right knee bandage off, swelling is better then prior to procedure, no s/s hematoma or bruising. No c/o bleeding, SOB. Objective - Vital Signs Vital signs: Vital Signs Temp 98.8 F 02/14/21 07:49 Pulse 57 L 02/14/21 08:00 Resp 18 02/14/21 08:00 BP 122/76 02/14/21 07:49 Pulse Ox 95 02/14/21 07:49 Intake & Output 02/13/21 02/14/21 02/14/21 18:59 06:59 18:59 Intake Total 800 250 Balance 800 250 Intake: Intake, IV Titration 250 Amount Heparin Sod,Pork in 0.45% 250 NaCl 25,000 unit In 0.45 % NaCl 1 250ml.bag @ 9. 186 UNITS/KG/HR 10 mls/hr IV .Q24H [facility] Rx#: [id number] Oral 800 Other: Voiding Method Toilet Toilet Urinal # Voids 1 2 - Constitutional General appearance: Present: average body habitus, cooperative, no acute distress - EENT Eyes: Present: anicteric sclerae, EOMI ENT: Present: hearing grossly normal, thrush - Respiratory Details: resp even and unlabored - Peripheral edema leg Peripheral Edema: right: Trace (surgical knee, mild swelling) - Neurologic Neurologic: Present: CNII-XII intact - Musculoskeletal Musculoskeletal: Present: strength equal bilaterally - Psychiatric Psychiatric: Present: A&O x's 3, appropriate affect, intact judgment & insight - Labs CBC & Chem 7: 02/13/21 04:25 02/12/21 08:35 Labs: Abnormal Lab Results - Last 24 Hours (Table) 02/14/21 Range/Units 05:02 APTT 75.8 H (22.0-30.0) sec Microbiology - Last 24 Hours (Table) 02/09/21 06:45 Blood Culture - Preliminary Blood No Growth after 120 hours 02/09/21 06:55 Blood Culture - Preliminary Blood No Growth after 120 hours 02/09/21 12:10 Anaerobic Culture - Preliminary Knee - Right Assessment and Plan (1) Hypercoagulable state Narrative/Plan: Heparin resumed postop, stopped at 6am. No evidence of bleeding at this time, knee is unbandaged, no significant swelling or bruising noted. Therapeutic dose of lovenox ordered stat, 100mg. Pt states he has his lovenox Rx at home. He will dose again this evening with 100mg. He will start coumadin this evening as well. Made f/u appt with pt MD who manages his coumadin. Pt understands that he needs to continue on lovenox until INR is therapeutic. Pt again educated that coumadin has interactions with many antifungals and antibiotics creating very labile INR. The way to manage is close monitoring of INR (twice a week) until treatment completed and adjust coumadin accordingly. Current Visit: Yes Status: Chronic Priority: High Code(s): D68.59 - OTHER PRIMARY THROMBOPHILIA SNOMED Code(s): 66452874
--- NOTE | 2021-02-14 14:31 | PN ---
PROGRESS NOTE DATE OF SERVICE: 02/14/2021. REASON FOR FOLLOWUP: 1. Right knee septic arthritis MSSA. 2. Oral thrush. INTERVAL HISTORY: The patient is afebrile. The patient is breathing comfortably. Denies having any chest pain, shortness of breath, cough, no abdominal pain. Pain to the right knee is currently improved. PHYSICAL EXAMINATION: Blood pressure 122/76, pulse of 57, temperature 98.8. He is 95% on room air. General description is a middle-aged male lying in bed in no distress. HEENT examination: Slight decreased intensity. LUNGS unlabored breathing. Clear to auscultation anteriorly. Heart S1, S2. Regular rate and rhythm. Abdomen soft, no tenderness. Right knee swelling has decreased. No redness, no drainage. LAB: Hemoglobin 13.4, white count 9.3. DIAGNOSTIC IMPRESSION AND PLAN: 1. This patient with right knee septic arthritis with MSSA. Blood culture negative. Will give a dose of Rocephin today. Plan is for cefazolin 2 g for a total of 4 weeks. Weekly monitoring blood work and close outpatient followup. 2. Oral thrush, 200 mg daily for 10 days. MMODL / IJN: [id number] /
[2021-02-14 14:38] VITALS: BP 118/70; PULSE 63
--- NOTE | 2021-02-14 14:52 | P.DS ---
Providers Date of admission: 02/10/21 21:46 Expected date of discharge: 02/14/21 Attending physician: Yung Allen MD Consults: 02/09/21 07:51 Consult Physician Routine Consulting Provider: Frankie Pizano Consult Reason/Comments: cellulitis Do you want consulting provider notified?: Yes 02/09/21 09:05 Consult Physician Routine Consulting Provider: Miquel Dorado Consult Reason/Comments: knee pain, cellulitis Do you want consulting provider notified?: Yes 02/09/21 16:10 Consult Physician Routine Consulting Provider: Nathanael Hough Consult Reason/Comments: factor 5, hx of DVTs, hx of PEs Do you want consulting provider notified?: Yes Primary care physician: Tristen Camarena MD Hospital Course: Discharge Diagnosis: Right knee cellulitis, septic arthritis 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 Hyperbilirubinemia Hospital Course: Patient is a 56-year-old male with a past medical history factor V clotting deficiency, DVTs, and PEs on Coumadin. He presented to the hospital with a chief complaint of right knee pain, redness, and swelling. Patient reports he worked out yesterday morning before work and started noticing some pain and swelling in his right knee and states by 10:30 AM he noticed this pain and swelling was accompanied by significant redness and made an appointment to his PCPs office in which he was diagnosed with cellulitis, given a shot of antibiotics and was started on cephalexin 500 mg every 12 hours. Patient states he took medication as directed, however the redness, pain, and swelling worsened and he was instructed by his PCP to come to the hospital. Patient reports pain upon walking in his right knee as well as decreased range of motion secondary to pain. An x-ray right knee was completed in the emergency department showing no acute fracture or dislocation with normal appearance of tricompartmental joint spaces. Lab findings revealed leukocytosis with WBC count of 19.8 with a left shift, thrombocytopenia with a platelet count of 142,000, elevated CRP at 6.6, and supratherapeutic INR of 4.0. Patient was started on IV antibiotics vancomycin and Unasyn and admitted under our services with consultation to orthopedic surgery, infectious disease, and hematology. Coumadin was held and patient started on heparin infusion to continue therapeutic anticoagulation. Blood cultures and joint aspiration/synovial fluid cultures positive for MSSA. Patient underwent or washout 02/12/21. PICC line placed earlier this morning. [facility] on IV a ntibiotics, cefazolin. Patient being bridged back to Coumadin with Lovenox and to repeat INR in 3 days. Patient to follow up outpatient as instructed with his PCP, Dr. Valdivia, body trimmer Dr. Abel, and infectious disease Dr. Pizano. Patient stable for discharge at this time. Physical exam: Patient stable for discharge at this time. He denies having any complaints including headache, lightheadedness, dizziness, chest pain, palpitations, shortness of breath, or experiencing any numbness/tingling/weakness in his extremities. Vital signs reviewed and stable. General: Nontoxic, no distress and appears stated age. Derm: Minimal erythema and edema to right anterior knee extending just superiorly and inferiorly to right knee. Significant improvement from previous area marked with a skin marker. Head: Atraumatic, normocephalic and symmetric. Eyes: EOMs intact, no lid lag, and anicteric sclera Mouth: no lip lesions, mucus membranes moist Cardiovascular: regular rate and rhythm with normal S1S2, no murmur, positive posterior tibial pulses bilaterally, and cap refill < 2 seconds. Lungs: Respirations even, regular, and unlabored on room air. Lungs CTA bilaterally, no rhonchi, no rales, no wheezing, and no accessory muscle usage. Abdominal: soft, nontender to palpation, no guarding, no appreciable organomegaly Ext: ROM intact. No gross muscle atrophy, no edema, no contractures Neuro: Speech clear, face symmetrical and CN II-XII grossly intact with no noted focal neuro deficits Psych: Alert and oriented to person, place, time, and situation. Appropriate and pleasant affect. A total of 45 minutes of time were spent preparing this complex discharge summary. Patient Condition at Discharge: Stable Plan - Discharge Summary Discharge Rx Participant: No New Discharge Prescriptions: New Enoxaparin [Lovenox] 100 mg SQ Q12H #20 syr ceFAZolin [Kefzol] 2 gm IVP Q8HR #84 vial Itraconazole Oral Susp [Sporanox Oral Susp] 200 mg PO DAILY #200 ml Continue Omeprazole [PriLOSEC] 20 mg PO DAILY Folic Acid 1 mg PO DAILY Cholecalciferol [Vitamin D3 (25 Mcg = 1000 Iu)] 100 mcg PO DAILY Warfarin [Coumadin] 5 mg PO DAILY Discontinued Cephalexin [Keflex] 1,000 mg PO Q12HR No Action Warfarin [Coumadin] 3 mg PO DAILY Discharge Medication List Folic Acid 1 mg PO DAILY 06/23/19 [History] Omeprazole [PriLOSEC] 20 mg PO DAILY 06/23/19 [History] Cholecalciferol [Vitamin D3 (25 Mcg = 1000 Iu)] 100 mcg PO DAILY 02/09/21 [History] Warfarin [Coumadin] 3 mg PO DAILY 02/09/21 [History] Warfarin [Coumadin] 5 mg PO DAILY 02/09/21 [History] Enoxaparin [Lovenox] 100 mg SQ Q12H #20 syr 02/13/21 [Rx] Itraconazole Oral Susp [Sporanox Oral Susp] 200 mg PO DAILY #200 ml 02/14/21 [Rx] ceFAZolin [Kefzol] 2 gm IVP Q8HR #84 vial 02/14/21 [Rx] Follow up Appointment(s)/Referral(s): Tristen Camarena MD [Primary Care Provider] - 1-2 days [facility]Infusion [NON-STAFF] - 1 Week Roselyn Abel MD [REFERRING] - 02/16/21 3:20 pm Frankie Pizano MD [STAFF PHYSICIAN] - 1 Week Ambulatory/Diagnostic Orders: Basic Metabolic Panel [LAB.AMB] Location: None Selected C Reactive Protein [LAB.AMB] Location: None Selected Complete Blood Count w/diff [LAB.AMB] Location: None Selected Erythrocyte Sedimentation Rate [LAB.AMB] Location: None Selected Prothrombin Time INR [LAB.AMB] Time Frame: 3 Days, Location: None Selected Activity/Diet/Wound Care/Special Instructions: [facility] - [phone] It is very important to keep your upcoming appointments with your primary doctor, body trimmer, and infectious disease specialist. Lovenox sent to [facility]-100mg SQ BID until INR therapeutic. You will resume taking Coumadin tonight 10 mg tonight fpr one dose and will resume 5 mg daily until further directed by your PCP, Dr. Valdivia and/or body trimmer Dr. Abel which will be based upon your INR results. Your being given a prescription to repeat your INR in 3 days to monitor for therapeutic anticoagulation. These results will be sent to both your PCP, Dr. Valdivia and body trimmer Dr. Abel. Thank you for allowing us to participate in your care, It was a pleasure having you for our patient!!! Discharge Disposition: HOME WITH HOME HEALTH SERVICES
[2021-02-14] MEDS ORDERED: WARFARIN 5 MG TAB PO ONE (18:00)
[2021-02-14] MEDS ORDERED: ENOXAPARIN 100 MG/ML SYRINGE SQ SCH (21:00)
== END 2021-02-14 15:05 | disposition home health service (06) | DRG 486 ==
LOC: EC 06:18 → 6NMEDSUR 08:00 → OBSVTOIN 02-10 21:46
PROVIDERS: ADMIT Internal Medicine; ATTEND Internal Medicine
PROC: 0S9C3ZX Drainage of Right Knee Joint, Percutaneous Approach, Diagnostic (ICD-10-PCS; 2021-02-09)
PROC: 3E1U48Z Irrigation of Joints using Irrigating Substance, Percutaneous Endoscopic Approach (ICD-10-PCS; principal; 2021-02-12 07:30)
PROC: 0SBC4ZZ Excision of Right Knee Joint, Percutaneous Endoscopic Approach (ICD-10-PCS; principal; 2021-02-12 07:30)
PROC: 02HV33Z Insertion of Infusion Device into Superior Vena Cava, Percutaneous Approach (ICD-10-PCS; 2021-02-14)
DX: M00.061 Staphylococcal arthritis, right knee (principal); D68.51 Activated protein C resistance; L03.115 Cellulitis of right lower limb; R17 Unspecified jaundice; M25.061 Hemarthrosis, right knee; B37.0 Candidal stomatitis; D68.52 Prothrombin gene mutation; D69.6 Thrombocytopenia, unspecified; M65.161 Other infective (teno)synovitis, right knee; B95.61 Methicillin susceptible Staphylococcus aureus infection as the cause of diseases classified elsewhere; L27.0 Generalized skin eruption due to drugs and medicaments taken internally; T36.0X5A Adverse effect of penicillins, initial encounter; Z79.01 Long term (current) use of anticoagulants; Z86.711 Personal history of pulmonary embolism; Z86.718 Personal history of other venous thrombosis and embolism; Z87.39 Personal history of other diseases of the musculoskeletal system and connective tissue; Z90.49 Acquired absence of other specified parts of digestive tract; Z87.19 Personal history of other diseases of the digestive system; Z98.890 Other specified postprocedural states; Y92.230 Patient room in hospital as the place of occurrence of the external cause; Z80.0 Family history of malignant neoplasm of digestive organs; Z82.49 Family history of ischemic heart disease and other diseases of the circulatory system
CPT/HCPCS: 36415; 36573; 76700; 76857; 80053; 80202; 82272; 82565; 83605; 84550; 85025; 85610; 85652; 85730; 86140; 87040; 87070; 87075; 87077; 87102; 87186; 87205; 89050; 89060; 93005; 96361; 96374; 96375; 99284